=== PATIENT | male | born 1965 | race African-American/Black ===

== ENCOUNTER 2016-06-03 13:45 | Inpatient (IN) | payer OTHER ==
[2016-06-03 17:03] VITALS: BMI 26.6
--- NOTE | 2016-06-03 17:39 | HP ---
COWS - Scale Resting Pulse: 0= [place] 80 or Below Sweatin= Chills/Flushing Restless Observation: 3= Extraneous Movement Pupil Size: 0= Normal to Room Light Bone or Joint Aches: 2= Severe Diffuse Aches Runny Nose/ Eye Tearin= Runny Nose/Eyes GI Upset > 30mins: 3= Vomiting/Diarrhea Tremor Observation: 2= Slight Tremor Visible Yawning Observation: 0= None Anxiety or Irritability: 2=Irritable/Anxious Goose Flesh Skin: 0=Smooth Skin COWS Score: 15 CIWA Score - CIWA Score Nausea/Vomitin Muscle Tremors: 4-Moderate,w/Arms Extend Anxiety: 4-Mod. Anxious/Guarded Agitation: 4-Moderately Restless Paroxysmal Sweats: 1-Minimal Palms Moist Orientation: 1-Uncertain about Date Tacttile Disturbances: 0-None Auditory Disturbances: 0-None Visual Disturbances: 0-None Headache: 0-None Present CIWA-Ar Total Score: 16 Admission ROS BHS - HPI Chief Complaint: withdrawal sx Allergies/Adverse Reactions: Allergies Allergy/AdvReac Type Severity Reaction Status Date / Time No Known Allergies Allergy Verified 06/03/16 17:13 History of Present Illness: 50 years old male with long history of alcohol heroin nicotine dependence has hypertension and glaucoma last medication "a month" ago, has depression no treatment, longest sobriety 5 years is admitted to detox Exam Limitations: No Limitations - Ebola screening Have you traveled outside of the country in the last 21 days: No Have you had contact with anyone from an Ebola affected area: No Have you been sick,other than usual withdrawal symptoms: No Do you have a fever: No - Review of Systems Constitutional: Chills, Changes in sleep EENT: reports: Other (glaucoma x 6 months last dose of eye drop "a month" ago needed eye glasses) Respiratory: reports: No Symptoms reported Cardiac: reports: No Symptoms Reported GI: reports: Diarrhea, Nausea, Poor Appetite, Poor Fluid Intake, Vomiting, Indigestion, Abdominal cramping : reports: No Symptoms Reported Musculoskeletal: reports: Back Pain, Joint Pain, Muscle Pain, Neck Pain Integumentary: reports: No Symptoms Reported Neuro: reports: Tremors Endocrine: reports: No Symptoms Reported Hematology: reports: No Symptoms Reported Psychiatric: reports: Judgement Intact, Depressed Other Systems: Reviewed and Negative Patient History - Patient Medical History Hx Anemia: No Hx Asthma: No Hx Chronic Obstructive Pulmonary Disease (COPD): No Hx Cancer: No Hx Cardiac Disorders: No Hx Congestive Heart Failure: No Hx Hypertension: Yes Hx Hypercholesterolemia: No Hx Pacemaker: No HX Cerebrovascular Accident: No Hx Seizures: No Hx Dementia: No Hx Diabetes: No Hx Gastrointestinal Disorders: No Hx Liver Disease: No Hx Genitourinary Disorders: No Hx Sexually Transmitted Disorders: No Hx Renal Disease (ESRD): No Hx Thyroid Disease: No Hx Human Immunodeficiency Virus (HIV): No Hx Hepatitis C: No Hx Depression: Yes Hx Suicide Attempt: No Hx Bipolar Disorder: No Hx Schizophrenia: No - Patient Surgical History Past Surgical History: No Hx Neurologic Surgery: No Hx Cataract Extraction: No Hx Cardiac Surgery: No Hx Lung Surgery: No Hx Breast Surgery: No Hx Breast Biopsy: No Hx Abdominal Surgery: No Hx Appendectomy: No Hx Cholecystectomy: No Hx Genitourinary Surgery: No Hx Orthopedic Surgery: No - PPD History Previous Implant?: Yes Documented Results: Negative w/o proof Implanted On Prior R Admission?: No PPD to be Administered?: Yes - Smoking Cessation Smoking history: Current every day smoker Have you smoked in the past 12 months: Yes Aproximately how many cigarettes per day: 10 Hx Chewing Tobacco Use: No Initiated information on smoking cessation: Yes 'Breaking Loose' booklet given: 06/03/16 - Substance & Tx. History Hx Alcohol Use: Yes Hx Substance Use: Yes Substance Use Type: Alcohol, Opiates Hx Substance Use Treatment: Yes - Substances Abused Heroin Route: Inhalation Frequency: Daily Amount used: 3-4 BAGS Age of first use: 50 Date of Last Use: 06/02/16 Alcohol Route: Oral Frequency: Daily Amount used: 1-2 6PKS BEER Age of first use: 21 Date of Last Use: 06/02/16 Family Disease History - Family Disease History Family Disease History: Diabetes: Brother Admission Physical Exam BHS - Vital Signs Vital Signs: Vital Signs - 24 hr 06/03/16 17:01 Temperature 98.7 F Pulse Rate 72 Respiratory 18 Rate Blood Pressure 163/103 - Physical General Appearance: Yes: Appropriately Dressed, Mild Distress, Tremorous, Irritable, Sweating, Anxious HEENTM: Yes: Hearing grossly Normal, Normal ENT Inspection, Normocephalic, Normal Voice Respiratory: Yes: Chest Non-Tender, Lungs Clear, Normal Breath Sounds, No Respiratory Distress, No Accessory Muscle Use Neck: Yes: Supple, Trachea in good position Breast: Yes: Breasts Symetrical Cardiology: Yes: Regular Rhythm, Regular Rate, S1, S2 Abdominal: Yes: Non Tender, Soft Genitourinary: Yes: Within Normal Limits Back: Yes: Normal Inspection Musculoskeletal: Yes: full range of Motion, Gait Steady, Back pain, Muscle Pain Extremities: Yes: Normal Inspection, Normal Range of Motion, Non-Tender, Tremors Neurological: Yes: Alert, Motor Strength 5/5, Normal Response, Depressed Affect Integumentary: Yes: Warm, Moist Lymphatic: Yes: Within Normal Limits - Diagnostic (1) Alcohol dependence with uncomplicated withdrawal Current Visit: Yes Status: Acute (2) Opioid dependence with withdrawal Current Visit: Yes Status: Acute (3) Hypertension Current Visit: Yes Status: Acute Qualifiers: Hypertension type: essential hypertension Qualified Code(s): I10 - Essential (primary) hypertension Comment: lisinopril (4) Nicotine dependence Current Visit: Yes Status: Acute Qualifiers: Nicotine product type: cigarettes Substance use status: uncomplicated Qualified Code(s): F17.210 - Nicotine dependence, cigarettes, uncomplicated (5) Depression (emotion) Current Visit: Yes Status: Suspected Qualifiers: Depression Type: dysthymia Qualified Code(s): F34.1 - Dysthymic disorder (6) Glaucoma Current Visit: Yes Status: Chronic Qualifiers: Glaucoma type: unspecified type Laterality: unspecified laterality Qualified Code(s): H40.9 - Unspecified glaucoma Comment: patient states that he has glaucoma x 6 months last eye drop a month ago unable to remember the name of the medication wait for home med list from pharmacy Cleared for Admission [facility] - Detox or Rehab [facility] Level of Care: Medically Managed Detox Regimen/Protocol: Methadone/Librium [facility] Breath Alcohol Content Breath Alcohol Content: 0 Urine Drug Screen - Results Drug Screen Negative: No Urine Drug Screen Results: OPI-Opiates
[2016-06-03] MEDS ORDERED: P-EPHED 60MG/TRIPROLIDI 2.5MG TABLET PO PRN (17:43)
[2016-06-03] MEDS ORDERED: MENTHOL/PHENOL 1 EACH UD MM PRN (17:43)
[2016-06-03] MEDS ORDERED: NICOTINE POLACRILEX 2 MG GUM BUC PRN (17:43)
[2016-06-03] MEDS ORDERED: MAG HYDROX/AL HYDROX/SIMETH 30 ML UNIT-DOSE CUP PO PRN (17:43)
[2016-06-03] MEDS ORDERED: chlordiazePOXIDE HCL 25 MG CAPSULE PO PRN (17:43)
[2016-06-03] MEDS ORDERED: LOPERAMIDE HCL 2 MG CAPSULE PO PRN (17:43)
[2016-06-03] MEDS ORDERED: ACETAMINOPHEN 325 MG TABLET (FP) PO PRN (17:43)
[2016-06-03] MEDS ORDERED: MAGNESIUM HYDROX 2400MG/30ML ORAL SUSPENSION 30 ML CUP PO PRN (17:43)
[2016-06-03] MEDS ORDERED: MAGNESIUM CITRATE 300 ML BOTTLE PO PRN (17:43)
[2016-06-03] MEDS ORDERED: guaiFENesin/D-METHORPHAN HB 10 ML UNIT-DOSE CUPS PO PRN (17:43)
[2016-06-03] MEDS ORDERED: IBUPROFEN 400 MG TABLET (FP) PO PRN (17:43)
[2016-06-03] MEDS ORDERED: cloNIDine HCL 0.1 MG TABLET PO PRN (17:46)
[2016-06-03] MEDS ORDERED: ONDANSETRON *ODT* 4 MG TABLET SL PRN (17:49)
[2016-06-03] MEDS ORDERED: METHADONE HCL 10 MG TABLET (FOR DETOX USE ONLY) PO ONE ×2 (18:45→23:00)
[2016-06-03] MEDS: LISINOPRIL 10 MG TABLET (FP) PO SCH (19:08)
[2016-06-03 20:53] LABS: URINE APPEARANCE CLEAR; URINE BILIRUBIN NEGATIVE (NEGATIVE); URINE BLOOD NEGATIVE (NEGATIVE); URINE COLOR LT. YELLOW; URINE GLUCOSE (UA) NEGATIVE (NEGATIVE); URINE KETONE NEGATIVE (NEGATIVE); URINE LEUK ESTERASE NEGATIVE (NEGATIVE); URINE NITRITE NEGATIVE (NEGATIVE); URINE PROTEIN NEGATIVE (NEGATIVE); URINE UROBILINOGEN 0.2 E.U/dl E.U./dl (0.2-1.0)
[2016-06-03] MEDS ORDERED: diphenhydrAMINE HCL 50 MG CAPSULE PO PRN (22:00)
[2016-06-03] MEDS: chlordiazePOXIDE HCL 25 MG CAPSULE PO SCH (22:24)
[2016-06-03] MEDS: THIAMINE HCL 100 MG TABLET (FP) PO SCH (22:24)
[2016-06-04] MEDS: chlordiazePOXIDE HCL 25 MG CAPSULE PO SCH ×4 (05:55→22:33)
[2016-06-04 10:00] LABS: MCH 29.2 pg (25.7-33.7); MEAN CELL VOLUME 88.5 fl (80-96); MEAN PLT VOLUME 10.5 fl (7.5-11.1); PLATELET COUNT 223 K/MM3 (134-434); RDW 14.6 % (11.9-15.9); WHITE BLOOD COUNT 4.9 K/mm3 (4.0-10.0)
[2016-06-04] MEDS ORDERED: METHADONE HCL 10 MG TABLET (FOR DETOX USE ONLY) PO SCH (10:00)
[2016-06-04] MEDS: PRENATAL VITAMINS W/ FOLIC ACID TABLET (FP) PO SCH (10:11)
[2016-06-04] MEDS: NICOTINE 14 MG/24 HOURS TOPICAL PATCH TD SCH (10:12)
[2016-06-04] MEDS: LISINOPRIL 10 MG TABLET (FP) PO SCH (10:12)
[2016-06-04 10:45] LABS: ALBUMIN 3.8 g/dl (3.4-5.0); ALK PHOS 75 U/L (45-117); ANION GAP 9 (8-16); BILIRUBIN,TOTAL 0.6 mg/dL (0.2-1.0); CALCIUM 9.1 mg/dL (8.5-10.1); CO2 27 mmol/L (21-32); CREATININE 1.1 mg/dL (0.7-1.3); GLUCOSE,RANDOM 112 mg/dL (74-106); SGOT/AST 22 U/L (15-37); SGPT/ALT 14 U/L (12-78); TOT PROT 7.7 g/dl (6.4-8.2)
--- NOTE | 2016-06-04 11:23 | PN ---
[facility] CIWA - CIWA Score Nausea/Vomitin-No Nausea/No Vomiting Muscle Tremors: 4-Moderate,w/Arms Extend Anxiety: 4-Mod. Anxious/Guarded Agitation: 4-Moderately Restless Paroxysmal Sweats: 1-Minimal Palms Moist Orientation: 0-Oriented Tacttile Disturbances: 3-Moderate Itch/Numb/Burn Auditory Disturbances: 0-None Visual Disturbances: 0-None Headache: 0-None Present CIWA-Ar Total Score: 16 BHS COWS - Scale Resting Pulse: 0= [place] 80 or Below Sweatin= Chills/Flushing Restless Observation: 3= Extraneous Movement Pupil Size: 2= Moderately Dilated Bone or Joint Aches: 4=Acute Joint/Muscle Pain Runny Nose/ Eye Tearin= Nasal Congestion GI Upset > 30mins: 1= Stomach Cramp Tremor Observation of Outstretched Hands: 1= Tremor [place], Not Seen Yawning Observation: 1= 1-2x During Session Anxiety or Irritability: 1=Feels Anxious/Irritable Goose Flesh Skin: 0=Smooth Skin COWS Score: 15 [facility] Progress Note (SOAP) Subjective: ANXIETY,TREMORS, SWEATS. Objective: 06/04/16 11:22 Vital Signs Temperature 98.7 F 06/04/16 09:43 Pulse Rate 80 06/04/16 09:43 Respiratory Rate 18 06/04/16 09:43 Blood Pressure 148/94 06/04/16 09:43 O2 Sat by Pulse Oximetry (%) Laboratory Last Values WBC 4.9 K/mm3 (4.0-10.0) 06/04/16 06:00 RBC 4.52 M/mm3 (4.00-5.60) 06/04/16 06:00 Hgb 13.2 GM/dL (11.7-16.9) 06/04/16 06:00 Hct 40.0 % (35.4-49) 06/04/16 06:00 MCV 88.5 fl (80-96) 06/04/16 06:00 MCHC 33.0 g/dl (32.0-35.9) 06/04/16 06:00 RDW 14.6 % (11.9-15.9) 06/04/16 06:00 Plt Count 223 K/MM3 (134-434) 06/04/16 06:00 MPV 10.5 fl (7.5-11.1) 06/04/16 06:00 Sodium 139 mmol/L (136-145) 06/04/16 06:00 Potassium 3.7 mmol/L (3.5-5.1) 06/04/16 06:00 Chloride 103 mmol/L (98-107) 06/04/16 06:00 Carbon Dioxide 27 mmol/L (21-32) 06/04/16 06:00 Anion Gap 9 (8-16) 06/04/16 06:00 BUN 9 mg/dL (7-18) 06/04/16 06:00 Creatinine 1.1 mg/dL (0.7-1.3) 06/04/16 06:00 Creat Clearance w eGFR > 60 (>60) 06/04/16 06:00 Random Glucose 112 mg/dL (74-106) H 06/04/16 06:00 Calcium 9.1 mg/dL (8.5-10.1) 06/04/16 06:00 Total Bilirubin 0.6 mg/dL (0.2-1.0) 06/04/16 06:00 AST 22 U/L (15-37) 06/04/16 06:00 ALT 14 U/L (12-78) 06/04/16 06:00 Alkaline Phosphatase 75 U/L (45-117) 06/04/16 06:00 Total Protein 7.7 g/dl (6.4-8.2) 06/04/16 06:00 Albumin 3.8 g/dl (3.4-5.0) 06/04/16 06:00 Urine Color Lt. yellow 06/03/16 19:30 Urine Appearance Clear 06/03/16 19:30 Urine pH 7.0 (5.0-8.0) 06/03/16 19:30 Ur Specific [place] 1.015 (1.001-1.035) 06/03/16 19:30 Urine Protein Negative (NEGATIVE) 06/03/16 19:30 Urine Glucose (UA) Negative (NEGATIVE) 06/03/16 19:30 Urine Ketones Negative (NEGATIVE) 06/03/16 19:30 Urine Blood Negative (NEGATIVE) 06/03/16 19:30 Urine Nitrite Negative (NEGATIVE) 06/03/16 19:30 Urine Bilirubin Negative (NEGATIVE) 06/03/16 19:30 Urine Urobilinogen 0.2 e.u/dl E.U./dl (0.2-1.0) 06/03/16 19:30 Ur Leukocyte Esterase Negative (NEGATIVE) 06/03/16 19:30 Assessment: 06/04/16 11:23 WITHDRAWAL SX Plan: CONTINUE DETOX
--- NOTE | 2016-06-04 14:53 | CONSULT ---
[facility] Psychiatric Consult - Data Date of interview: 06/04/16 Admission source: [facility] Identifying data: Readmission to [facility] for this 50 y/o AA male seeking detox treatment on for alcohol and heroin dependence.Patient is single, a father of one,domiciled,unemployed and supported on Welfare. Substance Abuse History: - Smoking Cessation. Smoking history: Current every day smoker. Have you smoked in the past 12 months: Yes. Aproximately how many cigarettes per day: 10. Hx Chewing Tobacco Use: No. Initiated information on smoking cessation: Yes. 'Breaking Loose' booklet given: 06/03/16. - Substance & Tx. History. Hx Alcohol Use: Yes. Hx Substance Use: Yes. Substance Use Type : Alcohol, Opiates. Hx Substance Use Treatment: Yes. - Substances Abused. Heroin. Route: Inhalation. Frequency: Daily. Amount used: 3-4 BAGS. Age of first use: 50. Date of Last Use: 06/02/16. Alcohol. Route: Oral. Frequency: Daily. Amount used: 1-2 6PKS BEER. Age of first use: 21. Date of Last Use: 06/02/16. Confirmed by patient. Medical History: Significant for a history of glaucoma and hypertension. Psychiatric History: Patient denies. Physical/Sexual Abuse/Trauma History: Patient denies. Additional Comment: Urine Drug Screen Results: OPI-Opiates.Noted. Mental Status Exam - Mental Status Exam Alert and Oriented to: Time, Place, Person Cognitive Function: Good Patient Appearance: Well Groomed Mood: Nervous, Withdrawn Affect: Mood Congruent Patient Behavior: Fatigued, Talkative, Appropriate, Cooperative Speech Pattern: Clear, Appropriate Voice Loudness: Normal Thought Process: Goal Oriented Thought Disorder: Not Present Hallucinations: Denies Suicidal Ideation: Denies Homicidal Ideation: Denies Insight/Judgement: Poor Sleep: Fair Appetite: Good Muscle strength/Tone: Normal Gait/Station: Normal Psychiatric Findings - Problem List ([place] 1, 2,3) (1) Alcohol dependence with uncomplicated withdrawal Current Visit: Yes Status: Acute (2) Hypertension Current Visit: Yes Status: Acute Qualifiers: Hypertension type: essential hypertension Qualified Code(s): I10 - Essential (primary) hypertension Comment: lisinopril (3) Nicotine dependence Current Visit: Yes Status: Acute Qualifiers: Nicotine product type: cigarettes Substance use status: uncomplicated Qualified Code(s): F17.210 - Nicotine dependence, cigarettes, uncomplicated (4) Opioid dependence with withdrawal Current Visit: Yes Status: Acute (5) Glaucoma Current Visit: Yes Status: Chronic Qualifiers: Glaucoma type: unspecified type Laterality: unspecified laterality Qualified Code(s): H40.9 - Unspecified glaucoma Comment: patient states that he has glaucoma x 6 months last eye drop a month ago unable to remember the name of the medication wait for home med list from pharmacy (6) Insomnia Current Visit: Yes Status: Acute Comment: Moderate. - Initial Treatment Plan Initial Treatment Plan: Psychoeducation.Detoxification.Moderate insomnia is addressed with benadryl 50 mg po hs prn.Side effects/benefits discussed with patient.He agrees with plan.Observation.
[2016-06-04] MEDS: THIAMINE HCL 100 MG TABLET (FP) PO SCH (22:33)
--- NOTE | 2016-06-04 23:45 | PN ---
[facility]HS Progress Note Note: received nurse call bp 153/102 librium 25 mg + clonidine 0.1 mg repeat bp in one hour around 12 am begin metoprolol 50 mg bid discontinue clonidine continue detox
[2016-06-05] MEDS: chlordiazePOXIDE HCL 25 MG CAPSULE PO SCH ×3 (05:48→18:02)
--- NOTE | 2016-06-05 09:17 | PN ---
[facility] CIWA - CIWA Score Nausea/Vomitin-No Nausea/No Vomiting Muscle Tremors: 4-Moderate,w/Arms Extend Anxiety: 4-Mod. Anxious/Guarded Agitation: 4-Moderately Restless Paroxysmal Sweats: 1-Minimal Palms Moist Orientation: 0-Oriented Tacttile Disturbances: 3-Moderate Itch/Numb/Burn Auditory Disturbances: 0-None Visual Disturbances: 0-None Headache: 0-None Present CIWA-Ar Total Score: 16 BHS COWS - Scale Resting Pulse: 0= [place] 80 or Below Sweatin= Chills/Flushing Restless Observation: 3= Extraneous Movement Pupil Size: 2= Moderately Dilated Bone or Joint Aches: 4=Acute Joint/Muscle Pain Runny Nose/ Eye Tearin= Nasal Congestion GI Upset > 30mins: 0= None Tremor Observation of Outstretched Hands: 2= Slight Tremor Visible Yawning Observation: 2= >3x During Session Anxiety or Irritability: 2=Irritable/Anxious Goose Flesh Skin: 0=Smooth Skin COWS Score: 17 [facility] Progress Note (SOAP) Subjective: ANXIETY,SWEATS,FATIGUE. Objective: 06/05/16 09:16 Vital Signs Temperature 96.9 F L 06/05/16 06:28 Pulse Rate 76 06/05/16 06:28 Respiratory Rate 18 06/05/16 06:28 Blood Pressure 140/96 06/05/16 06:28 O2 Sat by Pulse Oximetry (%) Laboratory Last Values WBC 4.9 K/mm3 (4.0-10.0) 06/04/16 06:00 RBC 4.52 M/mm3 (4.00-5.60) 06/04/16 06:00 Hgb 13.2 GM/dL (11.7-16.9) 06/04/16 06:00 Hct 40.0 % (35.4-49) 06/04/16 06:00 MCV 88.5 fl (80-96) 06/04/16 06:00 MCHC 33.0 g/dl (32.0-35.9) 06/04/16 06:00 RDW 14.6 % (11.9-15.9) 06/04/16 06:00 Plt Count 223 K/MM3 (134-434) 06/04/16 06:00 MPV 10.5 fl (7.5-11.1) 06/04/16 06:00 Sodium 139 mmol/L (136-145) 06/04/16 06:00 Potassium 3.7 mmol/L (3.5-5.1) 06/04/16 06:00 Chloride 103 mmol/L (98-107) 06/04/16 06:00 Carbon Dioxide 27 mmol/L (21-32) 06/04/16 06:00 Anion Gap 9 (8-16) 06/04/16 06:00 BUN 9 mg/dL (7-18) 06/04/16 06:00 Creatinine 1.1 mg/dL (0.7-1.3) 06/04/16 06:00 Creat Clearance w eGFR > 60 (>60) 06/04/16 06:00 Random Glucose 112 mg/dL (74-106) H 06/04/16 06:00 Calcium 9.1 mg/dL (8.5-10.1) 06/04/16 06:00 Total Bilirubin 0.6 mg/dL (0.2-1.0) 06/04/16 06:00 AST 22 U/L (15-37) 06/04/16 06:00 ALT 14 U/L (12-78) 06/04/16 06:00 Alkaline Phosphatase 75 U/L (45-117) 06/04/16 06:00 Total Protein 7.7 g/dl (6.4-8.2) 06/04/16 06:00 Albumin 3.8 g/dl (3.4-5.0) 06/04/16 06:00 Urine Color Lt. yellow 06/03/16 19:30 Urine Appearance Clear 06/03/16 19:30 Urine pH 7.0 (5.0-8.0) 06/03/16 19:30 Ur Specific [place] 1.015 (1.001-1.035) 06/03/16 19:30 Urine Protein Negative (NEGATIVE) 06/03/16 19:30 Urine Glucose (UA) Negative (NEGATIVE) 06/03/16 19:30 Urine Ketones Negative (NEGATIVE) 06/03/16 19:30 Urine Blood Negative (NEGATIVE) 06/03/16 19:30 Urine Nitrite Negative (NEGATIVE) 06/03/16 19:30 Urine Bilirubin Negative (NEGATIVE) 06/03/16 19:30 Urine Urobilinogen 0.2 e.u/dl E.U./dl (0.2-1.0) 06/03/16 19:30 Ur Leukocyte Esterase Negative (NEGATIVE) 06/03/16 19:30 RPR Titer Nonreactive (NONREACTIVE) 06/04/16 06:00 Hepatitis C Antibody 0.2 s/co ratio (0.0-0.9) 06/03/16 06:00 Assessment: 06/05/16 09:16 WITHDRAWAL SX Plan: CONTINUE DETOX
[2016-06-05] MEDS: LISINOPRIL 10 MG TABLET (FP) PO SCH (10:17)
[2016-06-05] MEDS: METHADONE HCL 5 MG TABLET (FOR DETOX USE ONLY) PO SCH (10:17)
[2016-06-05] MEDS: METOPROLOL TARTRATE 50 MG TABLET (FP) PO SCH ×2 (10:17→23:03)
[2016-06-05] MEDS: NICOTINE 14 MG/24 HOURS TOPICAL PATCH TD SCH (10:17)
[2016-06-05] MEDS: PRENATAL VITAMINS W/ FOLIC ACID TABLET (FP) PO SCH (10:17)
--- NOTE | 2016-06-05 10:20 | EKG ---
Test Reason : Blood Pressure : / mmHG Vent. Rate : 075 BPM Atrial Rate : 075 BPM P-R Int : 182 ms QRS Dur : 084 ms QT Int : 390 ms P-R-T Axes : 065 042 -11 degrees QTc Int : 435 ms NORMAL SINUS RHYTHM ST ELEVATION, CONSIDER EARLY REPOLARIZATION, PERICARDITIS, OR INJURY NONSPECIFIC ST ABNORMALITY ABNORMAL ECG NO PREVIOUS ECGS AVAILABLE Confirmed by INNA MARI MD ([id number]) on 06/05/2016 10:19:50 AM Referred By: Percy Sosa Confirmed By:INNA MARI MD
--- NOTE | 2016-06-05 10:27 | EKG ---
Test Reason : Blood Pressure : / mmHG Vent. Rate : 065 BPM Atrial Rate : 065 BPM P-R Int : 176 ms QRS Dur : 094 ms QT Int : 406 ms P-R-T Axes : 070 016 -01 degrees QTc Int : 422 ms NORMAL SINUS RHYTHM VOLTAGE CRITERIA FOR LEFT VENTRICULAR HYPERTROPHY ST ELEVATION, CONSIDER EARLY REPOLARIZATION, PERICARDITIS, OR INJURY ABNORMAL ECG NO PREVIOUS ECGS AVAILABLE Confirmed by KAMALJIT WALDEN, INNA ([id number]) on 06/05/2016 10:27:19 AM Referred By: Percy Sosa Confirmed By:INNA MARI MD
[2016-06-05] MEDS: chlordiazePOXIDE 5 MG CAPSULE PO SCH (23:03)
[2016-06-05] MEDS: THIAMINE HCL 100 MG TABLET (FP) PO SCH (23:03)
[2016-06-06] MEDS: chlordiazePOXIDE 5 MG CAPSULE PO SCH ×2 (06:15→10:19)
[2016-06-06 06:40] VITALS: BP 144/87; PULSE 63; TEMP 97.7
--- NOTE | 2016-06-06 10:13 | DS ---
[facility] Detox Discharge Summary Admission Date: 06/03/16 Discharge Date: 06/06/16 - History Present History: Alcohol Dependence, Opioid Dependence Additional Comments: PT DECLINED TO COMPLETE DETOX. STATES HE IS GOING TO HIS APPOINTMENT WITH [facility] ON ON [address] AND WANTED TO STOP USING HEROIN. WANTS TO GO OUT TO TAKE HIS PAIN PILL. Pertinent Past History: HTN - Physical Exam Results Vital Signs: Vital Signs Temperature 97.7 F 06/06/16 06:39 Pulse Rate 63 06/06/16 06:39 Respiratory Rate 18 06/06/16 06:39 Blood Pressure 144/87 06/06/16 06:39 O2 Sat by Pulse Oximetry (%) - Medication Discharge Medications: Ambulatory Orders Lisinopril 10 mg PO DAILY 06/03/16 - Diagnosis (1) Alcohol dependence with uncomplicated withdrawal Current Visit: Yes Status: Acute (2) Hypertension Current Visit: Yes Status: Chronic Qualifiers: Hypertension type: essential hypertension Qualified Code(s): I10 - Essential (primary) hypertension (3) Insomnia Current Visit: Yes Status: Chronic (4) Nicotine dependence Current Visit: Yes Status: Chronic Qualifiers: Nicotine product type: cigarettes Substance use status: uncomplicated Qualified Code(s): F17.210 - Nicotine dependence, cigarettes, uncomplicated (5) Opioid dependence with withdrawal Current Visit: Yes Status: Acute (6) Glaucoma Current Visit: Yes Status: Chronic Qualifiers: Glaucoma type: unspecified type Laterality: unspecified laterality Qualified Code(s): H40.9 - Unspecified glaucoma (7) Depression (emotion) Current Visit: Yes Status: Suspected Qualifiers: Depression Type: dysthymia Qualified Code(s): F34.1 - Dysthymic disorder - AMA Did Patient Leave Against Medical Advice: Yes (AMA)
[2016-06-06] MEDS: METHADONE HCL 5 MG TABLET (FOR DETOX USE ONLY) PO SCH (10:19)
[2016-06-06] MEDS: PRENATAL VITAMINS W/ FOLIC ACID TABLET (FP) PO SCH (10:19)
[2016-06-06] MEDS: NICOTINE 14 MG/24 HOURS TOPICAL PATCH TD SCH (10:19)
[2016-06-06] MEDS: METOPROLOL TARTRATE 50 MG TABLET (FP) PO SCH (10:19)
[2016-06-06] MEDS: LISINOPRIL 10 MG TABLET (FP) PO SCH (10:20)
[2016-06-06] MEDS ORDERED: chlordiazePOXIDE HCL 10 MG CAPSULE PO SCH (23:00)
[2016-06-07] MEDS ORDERED: METHADONE HCL 10 MG TABLET (FOR DETOX USE ONLY) PO SCH (10:00)
[2016-06-08] MEDS ORDERED: METHADONE HCL 5 MG TABLET (FOR DETOX USE ONLY) PO SCH (06:00)
== END 2016-06-06 09:30 | disposition left against medical advice (07) | DRG 770 ==
LOC: YASAS 13:45 → Y3N 18:27
PROVIDERS: ADMIT Internal Medicine; ATTEND Internal Medicine
PROC: HZ2ZZZZ Detoxification Services for Substance Abuse Treatment (ICD-10-PCS; principal; 2016-06-03)
DX: F11.23 Opioid dependence with withdrawal (principal); F10.230 Alcohol dependence with withdrawal, uncomplicated; F17.210 Nicotine dependence, cigarettes, uncomplicated; F34.1 Dysthymic disorder; I10 Essential (primary) hypertension; G47.00 Insomnia, unspecified; H40.9 Unspecified glaucoma
CPT/HCPCS: 36415; 80053; 81003; 85027; 86593; 86803; 93005; 93010

== ENCOUNTER 2017-03-14 10:59 | Inpatient (IN) | payer OTHER ==
[2017-03-14 13:09] VITALS: BMI 27.2
--- NOTE | 2017-03-14 14:37 | HP ---
COWS - Scale Resting Pulse: 1= [place] 81-100 Sweatin=Flushed/Facial Moisture Restless Observation: 3= Extraneous Movement Pupil Size: 2= Moderately Dilated Bone or Joint Aches: 2= Severe Diffuse Aches Runny Nose/ Eye Tearin= Runny Nose/Eyes GI Upset > 30mins: 3= Vomiting/Diarrhea Tremor Observation: 2= Slight Tremor Visible Yawning Observation: 2= >3x During Session Anxiety or Irritability: 2=Irritable/Anxious Goose Flesh Skin: 0=Smooth Skin COWS Score: 21 CIWA Score - CIWA Score Nausea/Vomitin Muscle Tremors: 3 Anxiety: 3 Agitation: 3 Paroxysmal Sweats: 2 Orientation: 0-Oriented Tacttile Disturbances: 2-Mild Itch/Numbness/Burn Auditory Disturbances: 2-Mild Harshness/Frighten Visual Disturbances: 2-Mild Sensitivity Headache: 2-Mild CIWA-Ar Total Score: 22 Admission ROS BHS - HPI Chief Complaint: I NEED HELP TO STOP USING HEROIN AND ALCOHOL Allergies/Adverse Reactions: Allergies Allergy/AdvReac Type Severity Reaction Status Date / Time No Known Allergies Allergy Verified 03/14/17 14:20 History of Present Illness: THIS 51 YEARS OLD MALE WITH HEROIN AND ALCOHOL DEPENDENCE,SEEKING DETOX,LAST TREATMENT 01/01/17 TO 01/06/17 HYPERTENSION ON MED WEIGHT LOSS DEPRESSION NO SIGNIFICANT PERIOD OF SOBRIETY Exam Limitations: No Limitations - Ebola screening Have you traveled outside of the country in the last 21 days: No Have you had contact with anyone from an Ebola affected area: No Have you been sick,other than usual withdrawal symptoms: No Do you have a fever: No - Review of Systems Constitutional: Chills, Loss of Appetite, Malaise, Night Sweats, Changes in sleep, Weakness, Unintentional Wgt. Loss EENT: reports: Tearing, Nose Congestion, Other (GLAUCOMA) Respiratory: reports: No Symptoms reported Cardiac: reports: Palpitations GI: reports: Diarrhea, Nausea, Vomiting, Abdominal cramping : reports: No Symptoms Reported Musculoskeletal: reports: Back Pain, Joint Pain, Muscle Pain, Joint Stiffness Integumentary: reports: Dryness Neuro: reports: Headache, Tremors Endocrine: reports: No Symptoms Reported Hematology: reports: No Symptoms Reported, Other (HIV SINCE 2002) Psychiatric: reports: No Sypmtoms Reported, Judgement Intact, Mood/Affect Appropiate, Orientated x3, Depressed Patient History - Patient Medical History Hx Anemia: No Hx Asthma: No Hx Chronic Obstructive Pulmonary Disease (COPD): No Hx Cancer: No Hx Cardiac Disorders: No Hx Congestive Heart Failure: No Hx Hypertension: Yes (non compliant with meds.) Hx Hypercholesterolemia: No Hx Pacemaker: No HX Cerebrovascular Accident: No Hx Seizures: No Hx Dementia: No Hx Diabetes: No Hx Gastrointestinal Disorders: No Hx Liver Disease: No Hx Genitourinary Disorders: No Hx Sexually Transmitted Disorders: Yes (Tx for gonnorhea in the past.) Hx Renal Disease (ESRD): No Hx Thyroid Disease: No Hx Human Immunodeficiency Virus (HIV): Yes (SINCE 2002 ON MED) Hx Hepatitis C: No Hx Depression: Yes Hx Suicide Attempt: No Hx Bipolar Disorder: No Hx Schizophrenia: No Other Medical History: NO SUICIDAL,NO HOMICIDAL - Patient Surgical History Past Surgical History: No Hx Neurologic Surgery: No Hx Cataract Extraction: No Hx Cardiac Surgery: No Hx Lung Surgery: No Hx Breast Surgery: No Hx Breast Biopsy: No Hx Abdominal Surgery: No Hx Appendectomy: No Hx Cholecystectomy: No Hx Genitourinary Surgery: No Hx Orthopedic Surgery: No - PPD History Previous Implant?: Yes Documented Results: Negative w/proof Implanted On Prior [facility] Admission?: Yes Date: 06/05/16 Results: 0 mm PPD to be Administered?: No - Smoking Cessation Smoking history: Current every day smoker Have you smoked in the past 12 months: Yes Aproximately how many cigarettes per day: 10 Hx Chewing Tobacco Use: No Initiated information on smoking cessation: Yes 'Breaking Loose' booklet given: 03/14/17 - Substance & Tx. History Hx Alcohol Use: Yes Hx Substance Use: Yes Substance Use Type: Alcohol, Heroin Hx Substance Use Treatment: Yes ([facility] 01/01 TO 01/06) - Substances Abused Heroin Route: Inhalation Frequency: Daily Amount used: 5 bags Age of first use: 49 Date of Last Use: 03/14/17 Alcohol Route: Oral Frequency: Daily Amount used: 5 beers Age of first use: 16 Date of Last Use: 03/14/17 Family Disease History - Family Disease History Family Disease History: Diabetes: Brother, Other: Father (ALCOHOL) Admission Physical Exam BHS - Vital Signs Vital Signs: Vital Signs - 24 hr 03/14/17 13:07 Temperature 99.1 F Pulse Rate 83 Respiratory 20 Rate Blood Pressure 153/101 - Physical General Appearance: Yes: Moderate Distress, Tremorous, Irritable, Sweating, Anxious HEENTM: Yes: Normal ENT Inspection, ANDREA, Pharynx Normal Respiratory: Yes: Within Normal Limits, Lungs Clear, Normal Breath Sounds Neck: Yes: Within Normal Limits, Supple, Trachea in good position Breast: Yes: Within Normal Limits Cardiology: Yes: Within Normal Limits, Regular Rhythm, Regular Rate, S1, S2 Abdominal: Yes: Within Normal Limits, Normal Bowel Sounds, Non Tender, Soft Genitourinary: Yes: Within Normal Limits Back: Yes: Muscle Spasm Musculoskeletal: Yes: Back pain, Joint Stiffness, Muscle Pain Extremities: Yes: Normal Range of Motion, Tremors Neurological: Yes: medical technologist prn II-XII NML intact, Fully Oriented, Alert, Motor Strength 5/5 Integumentary: Yes: Dry Lymphatic: Yes: Within Normal Limits - Diagnostic (1) Opioid dependence with withdrawal Current Visit: Yes Status: Acute (2) Alcohol dependence with uncomplicated withdrawal Current Visit: Yes Status: Acute (3) Hypertension Current Visit: Yes Status: Chronic Qualifiers: Hypertension type: essential hypertension Qualified Code(s): I10 - Essential (primary) hypertension; I10 - Essential (primary) hypertension; I10 - Essential (primary) hypertension Comment: lisinopril (4) Insomnia Current Visit: No Status: Chronic Comment: Moderate. (5) Nicotine dependence Current Visit: Yes Status: Chronic Qualifiers: Nicotine product type: cigarettes Substance use status: uncomplicated Qualified Code(s): F17.210 - Nicotine dependence, cigarettes, uncomplicated; F17.210 - Nicotine dependence, cigarettes, uncomplicated (6) Depression (emotion) Current Visit: Yes Status: Chronic Qualifiers: Depression Type: dysthymia Qualified Code(s): F34.1 - Dysthymic disorder; F34.1 - Dysthymic disorder; F34.1 - Dysthymic disorder (7) HIV (human immunodeficiency virus infection) Current Visit: Yes Status: Chronic (8) Glaucoma Current Visit: Yes Status: Chronic Qualifiers: Glaucoma type: unspecified type Laterality: unspecified laterality Comment: patient states that he has glaucoma x 6 months last eye drop a month ago unable to remember the name of the medication wait for home med list from pharmacy Cleared for Admission S - Detox or Rehab S Level of Care: Medically Managed Detox Regimen/Protocol: Methadone/Librium BHS Breath Alcohol Content Breath Alcohol Content: 0 Urine Drug Screen - Results Drug Screen Negative: No Urine Drug Screen Results: OPI-Opiates
[2017-03-14] MEDS ORDERED: diphenhydrAMINE HCL 50 MG CAPSULE PO PRN (15:15)
[2017-03-14] MEDS ORDERED: P-EPHED 60MG/TRIPROLIDI 2.5MG TABLET PO PRN (15:15)
[2017-03-14] MEDS ORDERED: MAGNESIUM HYDROX 2400MG/30ML ORAL SUSPENSION 30 ML CUP PO PRN (15:15)
[2017-03-14] MEDS ORDERED: chlordiazePOXIDE HCL 25 MG CAPSULE PO PRN (15:15)
[2017-03-14] MEDS ORDERED: guaiFENesin/D-METHORPHAN HB 10 ML UNIT-DOSE CUPS PO PRN (15:15)
[2017-03-14] MEDS ORDERED: ACETAMINOPHEN 325 MG TABLET (FP) PO PRN (15:15)
[2017-03-14] MEDS ORDERED: LOPERAMIDE HCL 2 MG CAPSULE PO PRN (15:15)
[2017-03-14] MEDS ORDERED: MAG HYDROX/AL HYDROX/SIMETH 30 ML UNIT-DOSE CUP PO PRN (15:15)
[2017-03-14] MEDS ORDERED: MAGNESIUM CITRATE 300 ML BOTTLE PO PRN (15:15)
[2017-03-14] MEDS ORDERED: MENTHOL/PHENOL 1 EACH UD MM PRN (15:15)
[2017-03-14] MEDS ORDERED: hydrOXYzine PAMOATE 25 MG CAPSULE (FP) PO PRN (15:15)
[2017-03-14] MEDS ORDERED: IBUPROFEN 400 MG TABLET (FP) PO PRN (15:15)
[2017-03-14] MEDS ORDERED: NICOTINE POLACRILEX 2 MG GUM BC PRN (15:15)
[2017-03-14] MEDS ORDERED: METHADONE HCL 10 MG TABLET (FOR DETOX USE ONLY) PO ONE ×2 (16:30→23:00)
[2017-03-14] MEDS: METOPROLOL TARTRATE 50 MG TABLET (FP) PO SCH (18:38)
[2017-03-14] MEDS: chlordiazePOXIDE HCL 25 MG CAPSULE PO SCH ×2 (18:39→22:14)
[2017-03-14] MEDS: GENVOYA PO SCH (18:40)
[2017-03-14] MEDS: amLODIPine BESYLATE 10 MG TABLET (FP) PO SCH (18:41)
[2017-03-14] MEDS: NICOTINE 21 MG/24 HOURS TOPICAL PATCH TD SCH (18:42)
[2017-03-14 22:09] LABS: URINE APPEARANCE SLCLOUDY; URINE BILIRUBIN NEGATIVE (NEGATIVE); URINE BLOOD NEGATIVE (NEGATIVE); URINE COLOR DKYELLOW; URINE GLUCOSE (UA) NEGATIVE (NEGATIVE); URINE KETONE NEGATIVE (NEGATIVE); URINE NITRITE NEGATIVE (NEGATIVE); URINE PROTEIN NEGATIVE (NEGATIVE)
[2017-03-14] MEDS: THIAMINE HCL 100 MG TABLET (FP) PO SCH (22:10)
[2017-03-14] MEDS: LATANOPROST 0.005% OPHTH SOLN 2.5ML BOTTLE OU SCH (22:14)
[2017-03-15] MEDS: chlordiazePOXIDE HCL 25 MG CAPSULE PO SCH ×4 (06:09→22:03)
[2017-03-15 09:09] LABS: MCH 28.8 pg (25.7-33.7); MCHC 32.5 g/dl (32.0-35.9); MEAN CELL VOLUME 88.6 fl (80-96); MEAN PLT VOLUME 10.1 fl (7.5-11.1); PLATELET COUNT 203 K/MM3 (134-434); RDW 14.3 % (11.9-15.9); WHITE BLOOD COUNT 5.8 K/mm3 (4.0-10.0)
[2017-03-15] MEDS ORDERED: METHADONE HCL 10 MG TABLET (FOR DETOX USE ONLY) PO SCH (10:00)
--- NOTE | 2017-03-15 10:01 | PN ---
[facility] CIWA - CIWA Score Nausea/Vomitin-Mild Nausea/No Vomiting Muscle Tremors: 3 Anxiety: 3 Agitation: 3 Paroxysmal Sweats: 3 Orientation: 0-Oriented Tacttile Disturbances: 1-Very Mild Itch/Numbness Auditory Disturbances: 0-None Visual Disturbances: 0-None Headache: 0-None Present CIWA-Ar Total Score: 14 BHS COWS - Scale Resting Pulse: 0= [place] 80 or Below Sweatin=Flushed/Facial Moisture Restless Observation: 1= Difficult to Sit Still Pupil Size: 0= Normal to Room Light Bone or Joint Aches: 1= Mild Discomfort Runny Nose/ Eye Tearin= Nasal Congestion GI Upset > 30mins: 1= Stomach Cramp Tremor Observation of Outstretched Hands: 1= Tremor [place], Not Seen Yawning Observation: 0= None Anxiety or Irritability: 2=Irritable/Anxious Goose Flesh Skin: 0=Smooth Skin COWS Score: 9 S Progress Note (SOAP) Subjective: Anxiety,tremors,sweating,interrupted sleep,restless Objective: 03/15/17 10:00 Vital Signs - 8 hr 03/15/17 03/15/17 03/15/17 03:49 06:00 09:45 Temperature 97.9 F 98.8 F Pulse Rate 65 73 Respiratory 18 18 16 Rate Blood Pressure 137/85 132/82 Laboratory Tests 03/14/17 03/15/17 21:00 06:00 WBC 5.8 RBC 4.29 Hgb 12.4 Hct 38.0 MCV 88.6 MCH 28.8 MCHC 32.5 RDW 14.3 Plt Count 203 MPV 10.1 Urine Color Dkyellow Urine Appearance Slcloudy Urine pH 5.0 D Urine Protein Negative Urine Glucose (UA) Negative Urine Ketones Negative Urine Blood Negative Urine Nitrite Negative Urine Bilirubin Negative Urine Urobilinogen 2.0 labs noted Assessment: 03/15/17 10:00 Withdrawal sx. Plan: Continue detox
[2017-03-15 10:24] LABS: URINE LEUK ESTERASE Negative (NEGATIVE)
[2017-03-15 11:00] LABS: ALBUMIN 3.2 g/dl (3.4-5.0); ALK PHOS 74 U/L (45-117); ANION GAP 7 (8-16); BILIRUBIN,TOTAL 0.3 mg/dL (0.2-1.0); CALCIUM 8.7 mg/dL (8.5-10.1); CO2 29 mmol/L (21-32); CREATININE 0.8 mg/dL (0.7-1.3); GLUCOSE,RANDOM 95 mg/dL (74-106); SGOT/AST 19 U/L (15-37); SGPT/ALT 19 U/L (12-78)
[2017-03-15] MEDS: GENVOYA PO SCH (11:09)
[2017-03-15] MEDS: PRENATAL VITAMINS W/ FOLIC ACID TABLET (FP) PO SCH (11:09)
[2017-03-15] MEDS: METOPROLOL TARTRATE 50 MG TABLET (FP) PO SCH (11:09)
[2017-03-15] MEDS: LISINOPRIL 20 MG TABLET (FP) PO SCH (11:09)
[2017-03-15] MEDS: amLODIPine BESYLATE 10 MG TABLET (FP) PO SCH (11:09)
[2017-03-15] MEDS: NICOTINE 21 MG/24 HOURS TOPICAL PATCH TD SCH (11:09)
--- NOTE | 2017-03-15 12:45 | CONSULT ---
[facility] Psychiatric Consult - Data Date of interview: 03/15/17 Admission source: [facility] Identifying data: Another admission to [facility] for this 51 y/o AA male seeking detox treatment on for alcohol and heroin dependence.Patient is single,a father of one,domiciled,unemployed and supported on welfare. Substance Abuse History: Discussed with the patient in this interview.Mr Patel confirmed a long standing history of alcohol + opioid dependence. Smoking history: Current every day smoker. Have you smoked in the past 12 months: Yes. Aproximately how many cigarettes per day: 10. Hx Chewing Tobacco Use: No. Initiated information on smoking cessation: Yes. 'Breaking Loose' booklet given : 03/14/17. - Substance & Tx. History. Hx Alcohol Use: Yes. Hx Substance Use : Yes. Substance Use Type: Alcohol, Heroin. Hx Substance Use Treatment: Yes ( [facility] 01/01 TO 01/06). - Substances Abused. Heroin. Route: Inhalation. Frequency: Daily. Amount used: 5 bags. Age of first use: 49. Date of Last Use : 03/14/17. Alcohol. Route: Oral. Frequency: Daily. Amount used: 5 beers. Age of first use: 16. Date of Last Use: 03/14/17 Medical History: HIV infection since 2002,hypertension,glaucoma and past treatment for gonorrhea. Psychiatric History: Patient reports a distant history of psychiatric hospitalization at the [facility] in [place].Diagnosed with MDD.Mr Patel gets his OPD care at the [facility] clinic in [place].He does not recall the names of his medications.No reported history of suicide attempts. Physical/Sexual Abuse/Trauma History: Patient denies. Additional Comment: Urine Drug Screen Results: OPI-Opiates.Noted. Mental Status Exam - Mental Status Exam Alert and Oriented to: Time, Place, Person Cognitive Function: Good Patient Appearance: Well Groomed Mood: Hopeful, Euthymic Affect: Appropriate, Normal Range Patient Behavior: Appropriate, Cooperative Speech Pattern: Clear Voice Loudness: Normal Thought Process: Intact, Goal Oriented Thought Disorder: Not Present Hallucinations: Denies Suicidal Ideation: Denies Homicidal Ideation: Denies Insight/Judgement: Poor Sleep: Poorly, Difficulty falling asleep Appetite: Good Muscle strength/Tone: Normal Gait/Station: Normal Psychiatric Findings - Problem List ([place] 1, 2,3) (1) Alcohol dependence with uncomplicated withdrawal Current Visit: Yes Status: Acute (2) Opioid dependence with withdrawal Current Visit: Yes Status: Acute (3) Nicotine dependence Current Visit: Yes Status: Acute Qualifiers: Nicotine product type: cigarettes Substance use status: uncomplicated Qualified Code(s): F17.210 - Nicotine dependence, cigarettes, uncomplicated; F17.210 - Nicotine dependence, cigarettes, uncomplicated (4) Substance induced mood disorder Current Visit: Yes Status: Acute (5) Glaucoma Current Visit: Yes Status: Chronic Qualifiers: Glaucoma type: unspecified type Laterality: unspecified laterality Comment: patient states that he has glaucoma x 6 months last eye drop a month ago unable to remember the name of the medication wait for home med list from pharmacy (6) Hypertension Current Visit: Yes Status: Chronic Qualifiers: Hypertension type: essential hypertension Qualified Code(s): I10 - Essential (primary) hypertension; I10 - Essential (primary) hypertension; I10 - Essential (primary) hypertension Comment: lisinopril (7) HIV (human immunodeficiency virus infection) Current Visit: Yes Status: Chronic (8) Insomnia Current Visit: No Status: Chronic Comment: Moderate. - Initial Treatment Plan Initial Treatment Plan: Psychoeducation.Detoxification.Medications : seroquel 100 mg po hs + ambien 10 mg po hs prn (verified by pharmacy claims of 02/27/17 at [facility]).Side effects/benefits discussed with the patient.He agrees with this careplan.Observation.
--- NOTE | 2017-03-15 13:19 | EKG ---
Test Reason : Blood Pressure : / mmHG Vent. Rate : 079 BPM Atrial Rate : 079 BPM P-R Int : 170 ms QRS Dur : 086 ms QT Int : 376 ms P-R-T Axes : 070 025 015 degrees QTc Int : 431 ms NORMAL SINUS RHYTHM MINIMAL VOLTAGE CRITERIA FOR LVH, MAY BE NORMAL VARIANT BORDERLINE ECG WHEN COMPARED WITH ECG OF 04-JUN-2016 12:36, NO SIGNIFICANT CHANGE WAS FOUND Confirmed by WILLI WALDEN, AUDELIA ([id number]) on 03/15/2017 1:19:24 PM Referred By: ESDRAS GUEVARA Confirmed By:AUDELIA MÁRQUEZ MD
[2017-03-15] MEDS: LATANOPROST 0.005% OPHTH SOLN 2.5ML BOTTLE OU SCH (22:02)
[2017-03-15] MEDS: QUEtiapine FUMARATE 100 MG TABLET (FP) PO SCH (22:03)
[2017-03-15] MEDS: THIAMINE HCL 100 MG TABLET (FP) PO SCH (22:03)
[2017-03-15] MEDS: ZOLPIDEM TARTRATE 10 MG TABLET (PARK CARE ONLY) PO PRN (22:03)
[2017-03-16] MEDS: chlordiazePOXIDE HCL 25 MG CAPSULE PO SCH ×2 (06:31→10:25)
[2017-03-16] MEDS: METOPROLOL TARTRATE 50 MG TABLET (FP) PO SCH (10:23)
[2017-03-16] MEDS: GENVOYA PO SCH (10:23)
[2017-03-16] MEDS: METHADONE HCL 5 MG TABLET (FOR DETOX USE ONLY) PO SCH (10:23)
[2017-03-16] MEDS: LISINOPRIL 20 MG TABLET (FP) PO SCH (10:23)
[2017-03-16] MEDS: amLODIPine BESYLATE 10 MG TABLET (FP) PO SCH (10:23)
[2017-03-16] MEDS: PRENATAL VITAMINS W/ FOLIC ACID TABLET (FP) PO SCH (10:24)
[2017-03-16] MEDS: NICOTINE 21 MG/24 HOURS TOPICAL PATCH TD SCH (10:24)
--- NOTE | 2017-03-16 13:19 | DS ---
[facility] Detox Discharge Summary Admission Date: 03/14/17 Discharge Date: 03/16/17 - History Present History: Alcohol Dependence, Opioid Dependence Pertinent Past History: HIV HTN - Physical Exam Results Vital Signs: Vital Signs Temperature 99.0 F 03/16/17 13:06 Pulse Rate 77 03/16/17 13:06 Respiratory Rate 18 03/16/17 13:06 Blood Pressure 134/83 03/16/17 13:06 O2 Sat by Pulse Oximetry (%) Pertinent Admission Physical Exam Findings: Withdrawal symptoms Laboratory Tests 03/14/17 03/15/17 03/15/17 21:00 06:00 06:00 WBC 5.8 RBC 4.29 Hgb 12.4 Hct 38.0 MCV 88.6 MCH 28.8 MCHC 32.5 RDW 14.3 Plt Count 203 MPV 10.1 Sodium 139 Potassium 3.5 Chloride 103 Carbon Dioxide 29 Anion Gap 7 L BUN 12 D Creatinine 0.8 D Creat Clearance w eGFR > 60 Random Glucose 95 Calcium 8.7 Total Bilirubin 0.3 D AST 19 ALT 19 D Alkaline Phosphatase 74 Total Protein 7.0 Albumin 3.2 L Urine Color Dkyellow Urine Appearance Slcloudy Urine pH 5.0 D Ur Specific [place] 1.025 Urine Protein Negative Urine Glucose (UA) Negative Urine Ketones Negative Urine Blood Negative Urine Nitrite Negative Urine Bilirubin Negative Urine Urobilinogen 2.0 Ur Leukocyte Esterase Negative RPR Titer 03/15/17 06:00 WBC RBC Hgb Hct MCV MCH MCHC RDW Plt Count MPV Sodium Potassium Chloride Carbon Dioxide Anion Gap BUN Creatinine Creat Clearance w eGFR Random Glucose Calcium Total Bilirubin AST ALT Alkaline Phosphatase Total Protein Albumin Urine Color Urine Appearance Urine pH Ur Specific [place] Urine Protein Urine Glucose (UA) Urine Ketones Urine Blood Urine Nitrite Urine Bilirubin Urine Urobilinogen Ur Leukocyte Esterase RPR Titer Nonreactive Labs noted - Treatment Hospital Course: Detox Protocol Followed, Detoxed Safely, Responded well, Discharged Condition Good - Medication Discharge Medications: Ambulatory Orders Amlodipine Besylate [Norvasc -] 10 mg PO DAILY 03/14/17 Benazepril HCl 20 mg PO DAILY 03/14/17 Elviteg/Kristin/Emtric/Tenofo Ala [Genvoya Tablet] 1 each PO DAILY 03/14/17 Metoprolol Tartrate [Lopressor -] 50 mg PO DAILY 03/14/17 Quetiapine Fumarate [Seroquel] 100 mg PO HS #30 tablet 03/15/17 - Diagnosis (1) Alcohol dependence with uncomplicated withdrawal Current Visit: Yes Status: Acute (2) Nicotine dependence Current Visit: Yes Status: Chronic Qualifiers: Nicotine product type: cigarettes Substance use status: uncomplicated Qualified Code(s): F17.210 - Nicotine dependence, cigarettes, uncomplicated; F17.210 - Nicotine dependence, cigarettes, uncomplicated (3) Opioid dependence with withdrawal Current Visit: Yes Status: Acute (4) HIV (human immunodeficiency virus infection) Current Visit: Yes Status: Chronic (5) Hypertension Current Visit: Yes Status: Chronic Qualifiers: Hypertension type: essential hypertension Qualified Code(s): I10 - Essential (primary) hypertension; I10 - Essential (primary) hypertension; I10 - Essential (primary) hypertension (6) Depression (emotion) Current Visit: Yes Status: Chronic Qualifiers: Depression Type: dysthymia Qualified Code(s): F34.1 - Dysthymic disorder; F34.1 - Dysthymic disorder; F34.1 - Dysthymic disorder - AMA Did Patient Leave Against Medical Advice: No (Follow up with PCP in 1-2 weeks post discharge)
--- NOTE | 2017-03-16 13:24 | PN ---
S CIWA - CIWA Score Nausea/Vomitin Muscle Tremors: 4-Moderate,w/Arms Extend Anxiety: 4-Mod. Anxious/Guarded Agitation: 3 Paroxysmal Sweats: 3 Orientation: 0-Oriented Tacttile Disturbances: 1-Very Mild Itch/Numbness Auditory Disturbances: 0-None Visual Disturbances: 0-None Headache: 1-Very Mild CIWA-Ar Total Score: 19 BHS COWS - Scale Resting Pulse: 0= [place] 80 or Below Sweatin=Flushed/Facial Moisture Restless Observation: 3= Extraneous Movement Pupil Size: 0= Normal to Room Light Bone or Joint Aches: 2= Severe Diffuse Aches Runny Nose/ Eye Tearin= Runny Nose/Eyes GI Upset > 30mins: 2= Nausea/Diarrhea Tremor Observation of Outstretched Hands: 2= Slight Tremor Visible Yawning Observation: 0= None Anxiety or Irritability: 2=Irritable/Anxious Goose Flesh Skin: 0=Smooth Skin COWS Score: 15 S Progress Note (SOAP) Subjective: Nausea, sweating, tremor, chills, anxious Objective: 03/16/17 13:23 Last Vital Signs Temp Pulse Resp BP Pulse Ox 99.0 F 77 18 134/83 03/16/17 13:06 03/16/17 13:06 03/16/17 13:06 03/16/17 13:06 Laboratory Tests 03/14/17 03/15/17 03/15/17 21:00 06:00 06:00 WBC 5.8 RBC 4.29 Hgb 12.4 Hct 38.0 MCV 88.6 MCH 28.8 MCHC 32.5 RDW 14.3 Plt Count 203 MPV 10.1 Sodium 139 Potassium 3.5 Chloride 103 Carbon Dioxide 29 Anion Gap 7 L BUN 12 D Creatinine 0.8 D Creat Clearance w eGFR > 60 Random Glucose 95 Calcium 8.7 Total Bilirubin 0.3 D AST 19 ALT 19 D Alkaline Phosphatase 74 Total Protein 7.0 Albumin 3.2 L Urine Color Dkyellow Urine Appearance Slcloudy Urine pH 5.0 D Ur Specific [place] 1.025 Urine Protein Negative Urine Glucose (UA) Negative Urine Ketones Negative Urine Blood Negative Urine Nitrite Negative Urine Bilirubin Negative Urine Urobilinogen 2.0 Ur Leukocyte Esterase Negative RPR Titer 03/15/17 06:00 WBC RBC Hgb Hct MCV MCH MCHC RDW Plt Count MPV Sodium Potassium Chloride Carbon Dioxide Anion Gap BUN Creatinine Creat Clearance w eGFR Random Glucose Calcium Total Bilirubin AST ALT Alkaline Phosphatase Total Protein Albumin Urine Color Urine Appearance Urine pH Ur Specific [place] Urine Protein Urine Glucose (UA) Urine Ketones Urine Blood Urine Nitrite Urine Bilirubin Urine Urobilinogen Ur Leukocyte Esterase RPR Titer Nonreactive Labs noted Assessment: 03/16/17 13:23 Withdrawal symptoms Plan: Continue detox
[2017-03-16] MEDS: chlordiazePOXIDE 5 MG CAPSULE PO SCH ×2 (17:31→22:04)
[2017-03-16] MEDS: LATANOPROST 0.005% OPHTH SOLN 2.5ML BOTTLE OU SCH (22:04)
[2017-03-16] MEDS: QUEtiapine FUMARATE 100 MG TABLET (FP) PO SCH (22:04)
[2017-03-16] MEDS: ZOLPIDEM TARTRATE 10 MG TABLET (PARK CARE ONLY) PO PRN (22:04)
[2017-03-16] MEDS: THIAMINE HCL 100 MG TABLET (FP) PO SCH (22:04)
[2017-03-17] MEDS: chlordiazePOXIDE 5 MG CAPSULE PO SCH ×2 (06:19→10:11)
[2017-03-17] MEDS: amLODIPine BESYLATE 10 MG TABLET (FP) PO SCH (10:08)
[2017-03-17] MEDS: PRENATAL VITAMINS W/ FOLIC ACID TABLET (FP) PO SCH (10:08)
[2017-03-17] MEDS: LISINOPRIL 20 MG TABLET (FP) PO SCH (10:08)
[2017-03-17] MEDS: METHADONE HCL 5 MG TABLET (FOR DETOX USE ONLY) PO SCH (10:08)
[2017-03-17] MEDS: METOPROLOL TARTRATE 50 MG TABLET (FP) PO SCH (10:08)
[2017-03-17] MEDS: GENVOYA PO SCH (10:11)
[2017-03-17] MEDS: NICOTINE 21 MG/24 HOURS TOPICAL PATCH TD SCH (10:11)
--- NOTE | 2017-03-17 10:59 | PN ---
S Progress Note (SOAP) Subjective: ALERT O X 3.SLIGHT FATIGUE. DETOX PROCEEDING WELL. Objective: 03/17/17 10:58 Vital Signs 03/17/17 03/17/17 03/17/17 03:25 06:02 10:24 Temperature 97 F L 95.9 F L Pulse Rate 70 107 H Respiratory 18 18 16 Rate Blood Pressure 132/80 146/99 Laboratory Last Values WBC 5.8 K/mm3 (4.0-10.0) 03/15/17 06:00 RBC 4.29 M/mm3 (4.00-5.60) 03/15/17 06:00 Hgb 12.4 GM/dL (11.7-16.9) 03/15/17 06:00 Hct 38.0 % (35.4-49) 03/15/17 06:00 MCV 88.6 fl (80-96) 03/15/17 06:00 MCH 28.8 pg (25.7-33.7) 03/15/17 06:00 MCHC 32.5 g/dl (32.0-35.9) 03/15/17 06:00 RDW 14.3 % (11.9-15.9) 03/15/17 06:00 Plt Count 203 K/MM3 (134-434) 03/15/17 06:00 MPV 10.1 fl (7.5-11.1) 03/15/17 06:00 Sodium 139 mmol/L (136-145) 03/15/17 06:00 Potassium 3.5 mmol/L (3.5-5.1) 03/15/17 06:00 Chloride 103 mmol/L (98-107) 03/15/17 06:00 Carbon Dioxide 29 mmol/L (21-32) 03/15/17 06:00 Anion Gap 7 (8-16) L 03/15/17 06:00 BUN 12 mg/dL (7-18) D 03/15/17 06:00 Creatinine 0.8 mg/dL (0.7-1.3) D 03/15/17 06:00 Creat Clearance w eGFR > 60 (>60) 03/15/17 06:00 Random Glucose 95 mg/dL (74-106) 03/15/17 06:00 Calcium 8.7 mg/dL (8.5-10.1) 03/15/17 06:00 Total Bilirubin 0.3 mg/dL (0.2-1.0) D 03/15/17 06:00 AST 19 U/L (15-37) 03/15/17 06:00 ALT 19 U/L (12-78) D 03/15/17 06:00 Alkaline Phosphatase 74 U/L (45-117) 03/15/17 06:00 Total Protein 7.0 g/dl (6.4-8.2) 03/15/17 06:00 Albumin 3.2 g/dl (3.4-5.0) L 03/15/17 06:00 Urine Color Dkyellow 03/14/17 21:00 Urine Appearance Slcloudy 03/14/17 21:00 Urine pH 5.0 (5.0-8.0) D 03/14/17 21:00 Ur Specific [place] 1.025 (1.005-1.025) 03/14/17 21:00 Urine Protein Negative (NEGATIVE) 03/14/17 21:00 Urine Glucose (UA) Negative (NEGATIVE) 03/14/17 21:00 Urine Ketones Negative (NEGATIVE) 03/14/17 21:00 Urine Blood Negative (NEGATIVE) 03/14/17 21:00 Urine Nitrite Negative (NEGATIVE) 03/14/17 21:00 Urine Bilirubin Negative (NEGATIVE) 03/14/17 21:00 Urine Urobilinogen 2.0 mg/dL (0.2-1.0) 03/14/17 21:00 Ur Leukocyte Esterase Negative (NEGATIVE) 03/14/17 21:00 RPR Titer Nonreactive (NONREACTIVE) 03/15/17 06:00 Assessment: 03/17/17 10:59 WITHDRAWAL SX Plan: CONTINUE DETOX
[2017-03-17] MEDS: chlordiazePOXIDE HCL 10 MG CAPSULE PO SCH ×2 (17:58→22:19)
[2017-03-17] MEDS: ZOLPIDEM TARTRATE 10 MG TABLET (PARK CARE ONLY) PO PRN (22:00)
[2017-03-17] MEDS: THIAMINE HCL 100 MG TABLET (FP) PO SCH (22:19)
[2017-03-17] MEDS: LATANOPROST 0.005% OPHTH SOLN 2.5ML BOTTLE OU SCH (22:19)
[2017-03-17] MEDS: QUEtiapine FUMARATE 100 MG TABLET (FP) PO SCH (22:19)
[2017-03-18] MEDS: chlordiazePOXIDE HCL 10 MG CAPSULE PO SCH ×2 (06:32→10:21)
[2017-03-18] MEDS ORDERED: METHADONE HCL 10 MG TABLET (FOR DETOX USE ONLY) PO SCH (10:00)
[2017-03-18] MEDS: LISINOPRIL 20 MG TABLET (FP) PO SCH (10:16)
[2017-03-18] MEDS: PRENATAL VITAMINS W/ FOLIC ACID TABLET (FP) PO SCH (10:16)
[2017-03-18] MEDS: METOPROLOL TARTRATE 50 MG TABLET (FP) PO SCH (10:16)
[2017-03-18] MEDS: GENVOYA PO SCH (10:17)
[2017-03-18] MEDS: amLODIPine BESYLATE 10 MG TABLET (FP) PO SCH (10:17)
[2017-03-18] MEDS: NICOTINE 21 MG/24 HOURS TOPICAL PATCH TD SCH (10:18)
--- NOTE | 2017-03-18 10:27 | PN ---
BHS Progress Note (SOAP) Subjective: SLIGHT ANXIETY, TREMORS. SWEATS,FATIGUE. Objective: 03/18/17 10:27 Vital Signs Temperature 96.4 F L 03/18/17 06:38 Pulse Rate 97 H 03/18/17 06:38 Respiratory Rate 18 10 06:38 Blood Pressure 154/89 03/18/17 06:38 O2 Sat by Pulse Oximetry (%) Laboratory Last Values WBC 5.8 K/mm3 (4.0-10.0) 03/15/17 06:00 RBC 4.29 M/mm3 (4.00-5.60) 03/15/17 06:00 Hgb 12.4 GM/dL (11.7-16.9) 03/15/17 06:00 Hct 38.0 % (35.4-49) 03/15/17 06:00 MCV 88.6 fl (80-96) 03/15/17 06:00 MCH 28.8 pg (25.7-33.7) 03/15/17 06:00 MCHC 32.5 g/dl (32.0-35.9) 03/15/17 06:00 RDW 14.3 % (11.9-15.9) 03/15/17 06:00 Plt Count 203 K/MM3 (134-434) 03/15/17 06:00 MPV 10.1 fl (7.5-11.1) 03/15/17 06:00 Sodium 139 mmol/L (136-145) 03/15/17 06:00 Potassium 3.5 mmol/L (3.5-5.1) 03/15/17 06:00 Chloride 103 mmol/L (98-107) 03/15/17 06:00 Carbon Dioxide 29 mmol/L (21-32) 03/15/17 06:00 Anion Gap 7 (8-16) L 03/15/17 06:00 BUN 12 mg/dL (7-18) D 03/15/17 06:00 Creatinine 0.8 mg/dL (0.7-1.3) D 03/15/17 06:00 Creat Clearance w eGFR > 60 (>60) 03/15/17 06:00 Random Glucose 95 mg/dL (74-106) 03/15/17 06:00 Calcium 8.7 mg/dL (8.5-10.1) 03/15/17 06:00 Total Bilirubin 0.3 mg/dL (0.2-1.0) D 03/15/17 06:00 AST 19 U/L (15-37) 03/15/17 06:00 ALT 19 U/L (12-78) D 03/15/17 06:00 Alkaline Phosphatase 74 U/L (45-117) 03/15/17 06:00 Total Protein 7.0 g/dl (6.4-8.2) 03/15/17 06:00 Albumin 3.2 g/dl (3.4-5.0) L 03/15/17 06:00 Urine Color Dkyellow 03/14/17 21:00 Urine Appearance Slcloudy 03/14/17 21:00 Urine pH 5.0 (5.0-8.0) D 03/14/17 21:00 Ur Specific [place] 1.025 (1.005-1.025) 03/14/17 21:00 Urine Protein Negative (NEGATIVE) 03/14/17 21:00 Urine Glucose (UA) Negative (NEGATIVE) 03/14/17 21:00 Urine Ketones Negative (NEGATIVE) 03/14/17 21:00 Urine Blood Negative (NEGATIVE) 03/14/17 21:00 Urine Nitrite Negative (NEGATIVE) 03/14/17 21:00 Urine Bilirubin Negative (NEGATIVE) 03/14/17 21:00 Urine Urobilinogen 2.0 mg/dL (0.2-1.0) 03/14/17 21:00 Ur Leukocyte Esterase Negative (NEGATIVE) 03/14/17 21:00 RPR Titer Nonreactive (NONREACTIVE) 03/15/17 06:00 Assessment: 03/18/17 10:27 WITHDRAWAL SX Plan: CONTINUE DETOX
[2017-03-18] MEDS: LATANOPROST 0.005% OPHTH SOLN 2.5ML BOTTLE OU SCH (22:13)
[2017-03-18] MEDS: QUEtiapine FUMARATE 100 MG TABLET (FP) PO SCH (22:13)
[2017-03-18] MEDS: THIAMINE HCL 100 MG TABLET (FP) PO SCH (22:13)
[2017-03-19] MEDS ORDERED: METHADONE HCL 5 MG TABLET (FOR DETOX USE ONLY) PO SCH (06:00)
[2017-03-19] MEDS ORDERED: ELVITEG/COB/EMTRI/TENOF (GENVOYA) TABLET (NF) PO SCH (08:00)
[2017-03-19 09:35] VITALS: BP 169/97; PULSE 98; TEMP 97
--- NOTE | 2017-03-19 12:07 | DS ---
[facility] Detox Discharge Summary Admission Date: 03/14/17 Discharge Date: 03/19/17 - History Present History: Alcohol Dependence, Opioid Dependence Additional Comments: PATIENT GOING HOME AT THIS TIME. PATIENT ADVISED TO CONSIDER LOCAL 12-STEP / AA / NA OUTPATIENT SUPPORT GROUP MEETINGS FOR AFTERCARE. PATIENT WAS DISCHARGED FROM DETOX UNIT IN STABLE MEDICAL CONDITION. Pertinent Past History: HTN, Glaucoma, HIV, Depression, Insomnia, Nicotine Dependence. - Physical Exam Results Vital Signs: Vital Signs Temperature 97.0 F L 03/19/17 09:34 Pulse Rate 98 H 03/19/17 09:34 Respiratory Rate 18 03/19/17 09:34 Blood Pressure 169/97 03/19/17 09:34 O2 Sat by Pulse Oximetry (%) Pertinent Admission Physical Exam Findings: WITHDRAWAL SYMPTOMS. Laboratory Tests 03/14/17 03/15/17 03/15/17 21:00 06:00 06:00 WBC 5.8 RBC 4.29 Hgb 12.4 Hct 38.0 MCV 88.6 MCH 28.8 MCHC 32.5 RDW 14.3 Plt Count 203 MPV 10.1 Sodium 139 Potassium 3.5 Chloride 103 Carbon Dioxide 29 Anion Gap 7 L BUN 12 D Creatinine 0.8 D Creat Clearance w eGFR > 60 Random Glucose 95 Calcium 8.7 Total Bilirubin 0.3 D AST 19 ALT 19 D Alkaline Phosphatase 74 Total Protein 7.0 Albumin 3.2 L Urine Color Dkyellow Urine Appearance Slcloudy Urine pH 5.0 D Ur Specific [place] 1.025 Urine Protein Negative Urine Glucose (UA) Negative Urine Ketones Negative Urine Blood Negative Urine Nitrite Negative Urine Bilirubin Negative Urine Urobilinogen 2.0 Ur Leukocyte Esterase Negative RPR Titer 03/15/17 06:00 WBC RBC Hgb Hct MCV MCH MCHC RDW Plt Count MPV Sodium Potassium Chloride Carbon Dioxide Anion Gap BUN Creatinine Creat Clearance w eGFR Random Glucose Calcium Total Bilirubin AST ALT Alkaline Phosphatase Total Protein Albumin Urine Color Urine Appearance Urine pH Ur Specific [place] Urine Protein Urine Glucose (UA) Urine Ketones Urine Blood Urine Nitrite Urine Bilirubin Urine Urobilinogen Ur Leukocyte Esterase RPR Titer Nonreactive LABS NOTED. - Treatment Hospital Course: Detox Protocol Followed, Detoxed Safely, Responded well, Discharged Condition Good Patient has Accepted a Rehab Referral to: NO. PT ADVISED TO CONSIDE LOCAL 12- STEP/NA/AA SUPPORT GROUPS FOR AFTERCARE. - Medication Discharge Medications: Ambulatory Orders Amlodipine Besylate [Norvasc -] 10 mg PO DAILY 03/14/17 Benazepril HCl 20 mg PO DAILY 03/14/17 Elviteg/Cob/Emtri/Tenof Alafen [Genvoya Tablet] 1 each PO DAILY 03/14/17 Quetiapine Fumarate [Seroquel] 100 mg PO HS #30 tablet 03/15/17 Metoprolol Tartrate [Lopressor -] 50 mg PO DAILY #30 mg 03/19/17 - Diagnosis (1) Alcohol dependence with uncomplicated withdrawal Status: Acute (2) Opioid dependence with withdrawal Status: Acute (3) Substance induced mood disorder Status: Acute (4) Depression (emotion) Status: Chronic Qualifiers: Depression Type: dysthymia Qualified Code(s): F34.1 - Dysthymic disorder; F34.1 - Dysthymic disorder; F34.1 - Dysthymic disorder (5) Glaucoma Status: Chronic Qualifiers: Glaucoma type: unspecified Laterality: unspecified laterality Qualified Code(s): H40.9 - Unspecified glaucoma; H40.9 - Unspecified glaucoma (6) HIV (human immunodeficiency virus infection) Status: Chronic (7) Hypertension Status: Chronic Qualifiers: Hypertension type: essential hypertension Qualified Code(s): I10 - Essential (primary) hypertension; I10 - Essential (primary) hypertension; I10 - Essential (primary) hypertension (8) Insomnia Status: Chronic Qualifiers: Insomnia type: unspecified Qualified Code(s): G47.00 - Insomnia, unspecified; G47.00 - Insomnia, unspecified (9) Nicotine dependence Status: Chronic Qualifiers: Nicotine product type: cigarettes Substance use status: uncomplicated Qualified Code(s): F17.210 - Nicotine dependence, cigarettes, uncomplicated; F17.210 - Nicotine dependence, cigarettes, uncomplicated - AMA Did Patient Leave Against Medical Advice: No
== END 2017-03-19 09:37 | disposition home or self-care (01) | DRG 773 ==
LOC: YASAS 10:59 → Y3N 15:32
PROVIDERS: ADMIT Internal Medicine; ATTEND Internal Medicine
PROC: HZ2ZZZZ Detoxification Services for Substance Abuse Treatment (ICD-10-PCS; principal; 2017-03-14)
DX: F11.23 Opioid dependence with withdrawal (principal); F10.230 Alcohol dependence with withdrawal, uncomplicated; F17.210 Nicotine dependence, cigarettes, uncomplicated; F19.24 Other psychoactive substance dependence with psychoactive substance-induced mood disorder; F34.1 Dysthymic disorder; I10 Essential (primary) hypertension; Z21 Asymptomatic human immunodeficiency virus [HIV] infection status; H40.9 Unspecified glaucoma; G47.00 Insomnia, unspecified; Z91.14 Patient's other noncompliance with medication regimen; Z87.438 Personal history of other diseases of male genital organs
CPT/HCPCS: 36415; 80053; 81003; 85027; 86593; 93005; 93010

== ENCOUNTER 2017-10-21 13:22 | Inpatient (IN) | payer OTHER ==
[2017-10-21 15:49] VITALS: BMI 27.8
--- NOTE | 2017-10-21 17:35 | HP ---
COWS - Scale Resting Pulse: 0= [place] 80 or Below Sweatin= No chills or Flushing Restless Observation: 0= Sits Still Pupil Size: 1= Pupils >than Normal Bone or Joint Aches: 0= None Runny Nose/ Eye Tearin= Runny Nose/Eyes GI Upset > 30mins: 3= Vomiting/Diarrhea (reports vomiting 5x) Tremor Observation: 1= Tremor [place], Not Seen Yawning Observation: 0= None Anxiety or Irritability: 1=Feels Anxious/Irritable Goose Flesh Skin: 0=Smooth Skin COWS Score: 8 CIWA Score - CIWA Score Nausea/Vomitin-Int. Nausea w/Dry Heave Muscle Tremors: 1-None Visible, but [place] Anxiety: 2 Agitation: 0-Normal Activity Paroxysmal Sweats: 2 Orientation: 0-Oriented Tacttile Disturbances: 0-None Auditory Disturbances: 0-None Visual Disturbances: 0-None Headache: 0-None Present CIWA-Ar Total Score: 9 Admission ROS S - HPI Chief Complaint: heroin and alcohol withdrawal symptoms Allergies/Adverse Reactions: Allergies Allergy/AdvReac Type Severity Reaction Status Date / Time No Known Allergies Allergy Verified 10/21/17 17:35 History of Present Illness: 51 yo male with hx alcohol, heroin, nicotine dependence is here seeking detox. PMHX: HTN, insomnia, glaucoma, HIV+. Last detox [facility] 07/29/17 - 08/03/17. Denies suicidal / homicidal ideation. Denies hx of blackouts or seizures. Exam Limitations: No Limitations - Ebola screening Have you traveled outside of the country in the last 21 days: No Have you had contact with anyone from an Ebola affected area: No Have you been sick,other than usual withdrawal symptoms: No Do you have a fever: No - Review of Systems Constitutional: Loss of Appetite, Changes in sleep, Unintentional Wgt. Loss (10 lbs 3 moths) EENT: reports: Other (wears glasses, hx of cataracts unsure which eye) Respiratory: reports: Cough (x 3 days) Cardiac: reports: No Symptoms Reported GI: reports: Constipated (last BM yesterday), Poor Appetite, Poor Fluid Intake, Vomiting : reports: No Symptoms Reported Musculoskeletal: reports: No Symptoms Reported Integumentary: reports: No Symptoms Reported Neuro: reports: No Symptoms reported Endocrine: reports: Increased Thirst Hematology: reports: See HPI Psychiatric: reports: Orientated x3, Depressed Other Systems: Reviewed and Negative Patient History - Patient Medical History Hx Anemia: No Hx Asthma: No Hx Chronic Obstructive Pulmonary Disease (COPD): No Hx Cancer: No Hx Cardiac Disorders: No Hx Congestive Heart Failure: No Hx Hypertension: Yes (NON COMPLIANT WITH MEDS.) Hx Hypercholesterolemia: No Hx Pacemaker: No HX Cerebrovascular Accident: No Hx Seizures: No Hx Dementia: No Hx Diabetes: No Hx Gastrointestinal Disorders: No Hx Liver Disease: No Hx Genitourinary Disorders: No Hx Sexually Transmitted Disorders: Yes (Hx of gonnorhea.) Hx Renal Disease (ESRD): No Hx Thyroid Disease: No Hx Human Immunodeficiency Virus (HIV): Yes (SINCE 2002 ON MED) Hx Hepatitis C: No Hx Depression: Yes Hx Suicide Attempt: No (no si at this time) Hx Bipolar Disorder: No Hx Schizophrenia: No - Patient Surgical History Past Surgical History: No Hx Neurologic Surgery: No Hx Cataract Extraction: No Hx Cardiac Surgery: No Hx Lung Surgery: No Hx Breast Surgery: No Hx Breast Biopsy: No Hx Abdominal Surgery: No Hx Appendectomy: No Hx Cholecystectomy: No Hx Genitourinary Surgery: No Hx Section: No Hx Orthopedic Surgery: No Anesthesia Reaction: No - PPD History Date: 07/31/17 Results: 0 mm - Smoking Cessation Smoking history: Current every day smoker Have you smoked in the past 12 months: Yes Aproximately how many cigarettes per day: 10 Hx Chewing Tobacco Use: No Initiated information on smoking cessation: Yes 'Breaking Loose' booklet given: 10/21/17 - Substance & Tx. History Hx Alcohol Use: Yes Hx Substance Use: Yes Substance Use Type: Alcohol, Heroin Hx Substance Use Treatment: Yes (07/29/17 - 08/03/17) - Substances Abused Alcohol Route: Oral Frequency: Daily Amount used: 4- 5 x 16 oz Age of first use: 21 Date of Last Use: 10/21/17 Heroin Route: Inhalation Frequency: Daily Amount used: 10 BAGS Age of first use: 49 Date of Last Use: 10/21/17 Family Disease History - Family Disease History Family Disease History: Diabetes: Brother, Other: Father (ALCOHOL) Admission Physical Exam [facility] - Vital Signs Vital Signs: Vital Signs - 24 hr 10/21/17 15:48 Temperature 97.9 F Pulse Rate 79 Respiratory 20 Rate Blood Pressure 144/96 - Physical General Appearance: Yes: No Apparent Distress, Appropriately Dressed, Thin, Sweating HEENTM: Yes: EOMI, Normal ENT Inspection, Normocephalic, Normal Voice, ANDREA, Pharynx Normal, Tm's normal, Other (poor dentition) Respiratory: Yes: Chest Non-Tender, Lungs Clear, Normal Breath Sounds, No Respiratory Distress, No Accessory Muscle Use Neck: Yes: Within Normal Limits Breast: Yes: Breast Exam Deferred Cardiology: Yes: Regular Rhythm, Regular Rate, Murmur Abdominal: Yes: Normal Bowel Sounds, Non Tender, Soft, Protuberent Genitourinary: Yes: Within Normal Limits Back: Yes: Normal Inspection Musculoskeletal: Yes: full range of Motion Extremities: Yes: Normal Capillary Refill, Normal Inspection, Normal Range of Motion, Non-Tender 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 intact, Fully Oriented, Alert, Motor Strength 5/5 Integumentary: Yes: Normal Color, Warm, Moist Lymphatic: Yes: Within Normal Limits - Diagnostic (1) Alcohol dependence with uncomplicated withdrawal Current Visit: Yes Status: Acute (2) Opioid dependence with withdrawal Current Visit: Yes Status: Acute (3) Depression (emotion) Current Visit: Yes Status: Chronic Qualifiers: Depression Type: dysthymia Qualified Code(s): F34.1 - Dysthymic disorder (4) Glaucoma Current Visit: Yes Status: Chronic Qualifiers: Glaucoma type: other Laterality: bilateral Qualified Code(s): H40.89 - Other specified glaucoma Comment: patient states that he has glaucoma x 6 months last eye drop a month ago unable to remember the name of the medication wait for home med list from pharmacy (5) HIV (human immunodeficiency virus infection) Current Visit: Yes Status: Chronic Comment: nomn-adherent with medications, unable to recall current antivirals taking (6) Hypertension Current Visit: Yes Status: Chronic Qualifiers: Hypertension type: essential hypertension Comment: lisinopril (7) Nicotine dependence Current Visit: Yes Status: Chronic Qualifiers: Nicotine product type: cigarettes Cleared for Admission [facility] - Detox or Rehab [facility] Level of Care: Medically Supervised Detox Regimen/Protocol: Methadone/Librium S Breath Alcohol Content Breath Alcohol Content: 0 Urine Drug Screen - Results Drug Screen Negative: No Urine Drug Screen Results: OPI-Opiates
[2017-10-21] MEDS ORDERED: MAG HYDROX/AL HYDROX/SIMETH 30 ML UNIT-DOSE CUP PO PRN (19:13)
[2017-10-21] MEDS ORDERED: NICOTINE POLACRILEX 2 MG GUM BC PRN (19:13)
[2017-10-21] MEDS ORDERED: LOPERAMIDE HCL 2 MG CAPSULE PO PRN (19:13)
[2017-10-21] MEDS ORDERED: IBUPROFEN 400 MG TABLET (FP) PO PRN (19:13)
[2017-10-21] MEDS ORDERED: hydrOXYzine PAMOATE 50 MG CAPSULE (FP) PO PRN (19:13)
[2017-10-21] MEDS ORDERED: MAGNESIUM HYDROX 2400MG/30ML ORAL SUSPENSION 30 ML CUP PO PRN (19:13)
[2017-10-21] MEDS ORDERED: chlordiazePOXIDE HCL 25 MG CAPSULE PO PRN (19:13)
[2017-10-21] MEDS ORDERED: guaiFENesin/D-METHORPHAN HB 10 ML UNIT-DOSE CUPS PO PRN (19:13)
[2017-10-21] MEDS ORDERED: P-EPHED 60MG/TRIPROLIDI 2.5MG TABLET PO PRN (19:13)
[2017-10-21] MEDS ORDERED: ACETAMINOPHEN 325 MG TABLET (FP) PO PRN (19:13)
[2017-10-21] MEDS ORDERED: MAGNESIUM CITRATE 300 ML BOTTLE PO PRN (19:13)
[2017-10-21] MEDS ORDERED: MENTHOL/PHENOL 1 EACH UD MM PRN (19:13)
[2017-10-21] MEDS ORDERED: METHADONE HCL 10 MG TABLET (FOR DETOX USE ONLY) PO ONE ×2 (19:30→23:00)
[2017-10-21] MEDS ORDERED: chlordiazePOXIDE HCL 25 MG CAPSULE PO ONE (19:30)
[2017-10-21] MEDS ORDERED: diphenhydrAMINE HCL 25 MG CAPSULE (FP) PO ONE (21:39)
[2017-10-21] MEDS: THIAMINE HCL 100 MG TABLET (FP) PO SCH (22:38)
[2017-10-21] MEDS: LATANOPROST 0.005% OPHTH SOLN 2.5ML BOTTLE OS SCH (22:39)
[2017-10-21] MEDS: chlordiazePOXIDE HCL 25 MG CAPSULE PO SCH (22:40)
[2017-10-22] MEDS: chlordiazePOXIDE HCL 25 MG CAPSULE PO SCH ×4 (05:23→22:28)
[2017-10-22 06:54] LABS: URINE APPEARANCE CLEAR; URINE BILIRUBIN NEGATIVE (<2.0 mg/dL); URINE COLOR LTYELLOW; URINE GLUCOSE (UA) NEGATIVE (NEGATIVE); URINE KETONE NEGATIVE (NEGATIVE); URINE LEUK ESTERASE NEGATIVE (NEGATIVE); URINE NITRITE NEGATIVE (NEGATIVE); URINE PROTEIN NEGATIVE (NEGATIVE); URINE UROBILINOGEN NEGATIVE mg/dL (0.2-1.0)
[2017-10-22] MEDS ORDERED: LISINOPRIL 10 MG TABLET (FP) PO SCH (10:00)
[2017-10-22] MEDS ORDERED: METHADONE HCL 10 MG TABLET (FOR DETOX USE ONLY) PO SCH (10:00)
[2017-10-22] MEDS: PRENATAL VITAMINS W/ FOLIC ACID TABLET (FP) PO SCH (10:22)
[2017-10-22] MEDS: NICOTINE 14 MG/24 HOURS TOPICAL PATCH TD SCH (10:22)
[2017-10-22 10:46] LABS: ANION GAP 5 (8-16); BLOOD UREA NITROGEN 10 mg/dL (7-18); CALCIUM 8.3 mg/dL (8.5-10.1); CHLORIDE 107 mmol/L (98-107); CO2 29 mmol/L (21-32); GLUCOSE,RANDOM 93 mg/dL (74-106); POTASSIUM 3.8 mmol/L (3.5-5.1); SODIUM 141 mmol/L (136-145)
[2017-10-22 10:49] LABS: ALK PHOS 64 U/L (45-117); BILIRUBIN,TOTAL 0.3 mg/dL (0.2-1.0); CREATININE 0.9 mg/dL (0.7-1.3); SGOT/AST 21 U/L (15-37); SGPT/ALT 11 U/L (12-78); TOT PROT 7.1 g/dl (6.4-8.2)
[2017-10-22 10:50] LABS: HEMATOCRIT 36.9 % (35.4-49); HEMOGLOBIN 12.1 GM/dL (11.7-16.9); MCH 28.1 pg (25.7-33.7); MCHC 32.9 g/dl (32.0-35.9); MEAN CELL VOLUME 85.6 fl (80-96); MEAN PLT VOLUME 8.7 fl (7.5-11.1); PLATELET COUNT 235 K/MM3 (134-434); RBC 4.31 M/mm3 (4.00-5.60); WHITE BLOOD COUNT 5.9 K/mm3 (4.0-10.0)
--- NOTE | 2017-10-22 13:30 | EKG ---
Test Reason : Blood Pressure : / mmHG Vent. Rate : 063 BPM Atrial Rate : 063 BPM P-R Int : 174 ms QRS Dur : 088 ms QT Int : 410 ms P-R-T Axes : 064 006 010 degrees QTc Int : 419 ms NORMAL SINUS RHYTHM MODERATE VOLTAGE CRITERIA FOR LVH, MAY BE NORMAL VARIANT BORDERLINE ECG WHEN COMPARED WITH ECG OF 29-JUL-2017 21:37, NO SIGNIFICANT CHANGE WAS FOUND Confirmed by KAMALJIT WALDEN, INNA ([id number]) on 10/22/2017 1:30:04 PM Referred By: Confirmed By:INNA MARI MD
--- NOTE | 2017-10-22 14:18 | PN ---
[facility] CIWA - CIWA Score Nausea/Vomitin-No Nausea/No Vomiting Muscle Tremors: 2 Anxiety: 3 Agitation: 3 Paroxysmal Sweats: No Perspiration Orientation: 2-Disoriented Date<2 days Tacttile Disturbances: 2-Mild Itch/Numbness/Burn Auditory Disturbances: 0-None Visual Disturbances: 3-Moderate Sensitivity Headache: 0-None Present CIWA-Ar Total Score: 15 BHS COWS - Scale Resting Pulse: 0= [place] 80 or Below Sweatin= No chills or Flushing Restless Observation: 1= Difficult to Sit Still Pupil Size: 0= Normal to Room Light Bone or Joint Aches: 2= Severe Diffuse Aches Runny Nose/ Eye Tearin= Runny Nose/Eyes GI Upset > 30mins: 0= None Tremor Observation of Outstretched Hands: 2= Slight Tremor Visible Yawning Observation: 1= 1-2x During Session Anxiety or Irritability: 2=Irritable/Anxious Goose Flesh Skin: 3=[place] COWS Score: 13 S Progress Note (SOAP) Subjective: Body Aches, Sweating, Tremors, Fatigue. Objective: PATIENT A & O X 2 (UNCERTAIN ABOUT CURRENT DAY / DATE). NO ACUTE DISTRESS. 10/22/17 14:16 Vital Signs Temperature 97.6 F 10/22/17 13:33 Pulse Rate 79 10/22/17 13:33 Respiratory Rate 18 10/22/17 13:33 Blood Pressure 165/89 10/22/17 13:33 O2 Sat by Pulse Oximetry (%) Laboratory Tests 10/21/17 10/22/17 10/22/17 23:19 07:30 07:30 WBC 5.9 RBC 4.31 Hgb 12.1 Hct 36.9 MCV 85.6 MCH 28.1 MCHC 32.9 RDW 15.0 Plt Count 235 MPV 8.7 Sodium 141 Potassium 3.8 Chloride 107 Carbon Dioxide 29 Anion Gap 5 L BUN 10 Creatinine 0.9 Creat Clearance w eGFR > 60 Random Glucose 93 Calcium 8.3 L Total Bilirubin 0.3 D AST 21 ALT 11 L Alkaline Phosphatase 64 Total Protein 7.1 Albumin 3.0 L Urine Color Ltyellow Urine Appearance Clear Urine pH 6.0 Ur Specific [place] 1.009 Urine Protein Negative Urine Glucose (UA) Negative Urine Ketones Negative Urine Blood Negative Urine Nitrite Negative Urine Bilirubin Negative Urine Urobilinogen Negative Ur Leukocyte Esterase Negative LABS NOTED. Assessment: 10/22/17 14:16 WITHDRAWAL SYMPTOMS. HYPERTENSION. 10/22/17 14:17 Plan: CONTINUE DETOX. INCREASE DAILY PO FLUID INTAKE. INCREASE LISINOPRIL TO 20 MG PO DAILY FOR PERSISTENTLY ELEVATED BP.
[2017-10-22] MEDS ORDERED: LISINOPRIL 10 MG TABLET (FP) PO ONE (14:45)
--- NOTE | 2017-10-22 15:54 | CONSULT ---
[facility] Psychiatric Consult - Data Date of interview: 10/22/17 Admission source: [facility] Identifying data: Readmission to [facility] for this 51 y/o AA male seeking detox treatment on for alcohol and heroin dependence.Patient is ,a father of one,domiciled,unemployed,reportedly deprived of income and supported by relatives. Substance Abuse History: Confirmed by patient in this interview.Smoking history : Current every day smoker. Have you smoked in the past 12 months: Yes. Aproximately how many cigarettes per day: 10. Hx Chewing Tobacco Use: No. Initiated information on smoking cessation: Yes. 'Breaking Loose' booklet given : 10/21/17. - Substance & Tx. History. Hx Alcohol Use: Yes. Hx Substance Use : Yes. Substance Use Type: Alcohol, Heroin. Hx Substance Use Treatment: Yes ( - 08/03/17). - Substances Abused. Alcohol. Route: Oral. Frequency: Daily. Amount used: 4- 5 x 16 oz. Age of first use: 21. Date of Last Use: . Heroin. Route: Inhalation. Frequency: Daily. Amount used: 10 BAGS. Age of first use: 49. Date of Last Use: 10/21/17 Medical History: HIV infection since 2002,hypertension,glaucoma and past treatment for gonorrhea. Psychiatric History: Patient denies history of psychiatric hospitalizations in this interview.Reportedly diagnosed with MDD.Mr Patel gets his OPD care at the [facility] in the [place].NOT on psychotropic medications.Patient denies history of suicide attempts. Physical/Sexual Abuse/Trauma History: Patient denies. Additional Comment: Urine Drug Screen Results: OPI-Opiates.Noted. Mental Status Exam - Mental Status Exam Alert and Oriented to: Time, Place, Person Cognitive Function: Good Patient Appearance: Disheveled Mood: Nervous, Withdrawn Affect: Mood Congruent Patient Behavior: Fatigued, Cooperative Speech Pattern: Clear Voice Loudness: Normal Thought Process: Goal Oriented Thought Disorder: Not Present Hallucinations: Denies Suicidal Ideation: Denies Homicidal Ideation: Denies Insight/Judgement: Poor Sleep: Well Appetite: Good Muscle strength/Tone: Normal Gait/Station: Normal Psychiatric Findings - Problem List ([place] 1, 2,3) (1) Opioid dependence with withdrawal Current Visit: Yes Status: Acute (2) Alcohol dependence with uncomplicated withdrawal Current Visit: Yes Status: Acute (3) Nicotine dependence Current Visit: Yes Status: Acute Qualifiers: Nicotine product type: cigarettes Substance use status: uncomplicated Qualified Code(s): F17.210 - Nicotine dependence, cigarettes, uncomplicated (4) Substance induced mood disorder Current Visit: Yes Status: Acute - Initial Treatment Plan Initial Treatment Plan: Psychoeducation.Sleephygiene.Detoxification in progress.Observation.
[2017-10-22] MEDS: LATANOPROST 0.005% OPHTH SOLN 2.5ML BOTTLE OS SCH (22:27)
[2017-10-22] MEDS: THIAMINE HCL 100 MG TABLET (FP) PO SCH (22:28)
[2017-10-23] MEDS: chlordiazePOXIDE HCL 25 MG CAPSULE PO SCH ×3 (07:42→17:15)
[2017-10-23] MEDS: PRENATAL VITAMINS W/ FOLIC ACID TABLET (FP) PO SCH (10:20)
[2017-10-23] MEDS: METHADONE HCL 5 MG TABLET (FOR DETOX USE ONLY) PO SCH (10:20)
[2017-10-23] MEDS: LISINOPRIL 20 MG TABLET (FP) PO SCH (10:20)
[2017-10-23] MEDS: NICOTINE 14 MG/24 HOURS TOPICAL PATCH TD SCH (10:21)
--- NOTE | 2017-10-23 11:43 | PN ---
S CIWA - CIWA Score Nausea/Vomitin-No Nausea/No Vomiting Muscle Tremors: 4-Moderate,w/Arms Extend Anxiety: 4-Mod. Anxious/Guarded Agitation: 4-Moderately Restless Paroxysmal Sweats: 1-Minimal [place] Moist Orientation: 0-Oriented Tacttile Disturbances: 0-None Auditory Disturbances: 0-None Visual Disturbances: 0-None Headache: 0-None Present CIWA-Ar Total Score: 13 [facility] COWS - Scale Resting Pulse: 0= [place] 80 or Below Sweatin= Chills/Flushing Restless Observation: 3= Extraneous Movement Pupil Size: 0= Normal to Room Light Bone or Joint Aches: 4=Acute Joint/Muscle Pain Runny Nose/ Eye Tearin= Nasal Congestion GI Upset > 30mins: 0= None Tremor Observation of Outstretched Hands: 2= Slight Tremor Visible Yawning Observation: 1= 1-2x During Session Anxiety or Irritability: 2=Irritable/Anxious Goose Flesh Skin: 0=Smooth Skin COWS Score: 14 [facility] Progress Note (SOAP) Subjective: ANXIETY,SWEATS/CHILLS,BACK ACHE,FATIGUE. Objective: 10/23/17 11:42 Vital Signs 10/23/17 10/23/17 10/23/17 06:04 06:30 09:18 Temperature 97.2 F L 96.5 F L Pulse Rate 65 67 Respiratory 18 18 18 Rate Blood Pressure 150/91 147/92 Laboratory Tests 10/21/17 10/22/17 10/22/17 23:19 07:30 07:30 WBC 5.9 RBC 4.31 Hgb 12.1 Hct 36.9 MCV 85.6 MCH 28.1 MCHC 32.9 RDW 15.0 Plt Count 235 MPV 8.7 Sodium 141 Potassium 3.8 Chloride 107 Carbon Dioxide 29 Anion Gap 5 L BUN 10 Creatinine 0.9 Creat Clearance w eGFR > 60 Random Glucose 93 Calcium 8.3 L Total Bilirubin 0.3 D AST 21 ALT 11 L Alkaline Phosphatase 64 Total Protein 7.1 Albumin 3.0 L Urine Color Ltyellow Urine Appearance Clear Urine pH 6.0 Ur Specific [place] 1.009 Urine Protein Negative Urine Glucose (UA) Negative Urine Ketones Negative Urine Blood Negative Urine Nitrite Negative Urine Bilirubin Negative Urine Urobilinogen Negative Ur Leukocyte Esterase Negative RPR Titer 10/22/17 07:30 WBC RBC Hgb Hct MCV MCH MCHC RDW Plt Count MPV Sodium Potassium Chloride Carbon Dioxide Anion Gap BUN Creatinine Creat Clearance w eGFR Random Glucose Calcium Total Bilirubin AST ALT Alkaline Phosphatase Total Protein Albumin Urine Color Urine Appearance Urine pH Ur Specific [place] Urine Protein Urine Glucose (UA) Urine Ketones Urine Blood Urine Nitrite Urine Bilirubin Urine Urobilinogen Ur Leukocyte Esterase RPR Titer Nonreactive Assessment: 10/23/17 11:42 WITHDRAWAL SX Plan: CONTINUE DETOX INCREASE PO FLUIDS
[2017-10-23] MEDS ORDERED: cloNIDine HCL 0.1 MG TABLET PO ONE (13:45)
[2017-10-23] MEDS: THIAMINE HCL 100 MG TABLET (FP) PO SCH (22:30)
[2017-10-23] MEDS: LATANOPROST 0.005% OPHTH SOLN 2.5ML BOTTLE OS SCH (22:30)
[2017-10-23] MEDS: chlordiazePOXIDE 5 MG CAPSULE PO SCH (22:30)
[2017-10-24] MEDS: chlordiazePOXIDE 5 MG CAPSULE PO SCH ×3 (06:36→17:44)
[2017-10-24] MEDS: LISINOPRIL 20 MG TABLET (FP) PO SCH (10:20)
[2017-10-24] MEDS: METHADONE HCL 5 MG TABLET (FOR DETOX USE ONLY) PO SCH (10:20)
[2017-10-24] MEDS: PRENATAL VITAMINS W/ FOLIC ACID TABLET (FP) PO SCH (10:20)
[2017-10-24] MEDS: NICOTINE 14 MG/24 HOURS TOPICAL PATCH TD SCH (10:20)
--- NOTE | 2017-10-24 11:03 | PN ---
[facility] Progress Note (SOAP) Subjective: PT REPORTS SWEATS,BACK PAIN.ANXIETY. Objective: 10/24/17 11:02 Vital Signs 10/24/17 10/24/17 10/24/17 03:30 07:36 09:33 Temperature 97.9 F 97.1 F L Pulse Rate 65 76 Respiratory 18 19 18 Rate Blood Pressure 139/91 126/79 Laboratory Tests 10/21/17 10/22/17 10/22/17 23:19 07:30 07:30 WBC 5.9 RBC 4.31 Hgb 12.1 Hct 36.9 MCV 85.6 MCH 28.1 MCHC 32.9 RDW 15.0 Plt Count 235 MPV 8.7 Sodium 141 Potassium 3.8 Chloride 107 Carbon Dioxide 29 Anion Gap 5 L BUN 10 Creatinine 0.9 Creat Clearance w eGFR > 60 Random Glucose 93 Calcium 8.3 L Total Bilirubin 0.3 D AST 21 ALT 11 L Alkaline Phosphatase 64 Total Protein 7.1 Albumin 3.0 L Urine Color Ltyellow Urine Appearance Clear Urine pH 6.0 Ur Specific [place] 1.009 Urine Protein Negative Urine Glucose (UA) Negative Urine Ketones Negative Urine Blood Negative Urine Nitrite Negative Urine Bilirubin Negative Urine Urobilinogen Negative Ur Leukocyte Esterase Negative RPR Titer 10/22/17 07:30 WBC RBC Hgb Hct MCV MCH MCHC RDW Plt Count MPV Sodium Potassium Chloride Carbon Dioxide Anion Gap BUN Creatinine Creat Clearance w eGFR Random Glucose Calcium Total Bilirubin AST ALT Alkaline Phosphatase Total Protein Albumin Urine Color Urine Appearance Urine pH Ur Specific [place] Urine Protein Urine Glucose (UA) Urine Ketones Urine Blood Urine Nitrite Urine Bilirubin Urine Urobilinogen Ur Leukocyte Esterase RPR Titer Nonreactive Assessment: 10/24/17 11:02 WITHDRAWAL SX Plan: CONTINUE DETOX MOTRIN PRN
[2017-10-24] MEDS: MELATONIN 5 MG TABLETS PO PRN (22:20)
[2017-10-24] MEDS: chlordiazePOXIDE HCL 10 MG CAPSULE PO SCH (22:20)
[2017-10-24] MEDS: THIAMINE HCL 100 MG TABLET (FP) PO SCH (22:20)
[2017-10-24] MEDS: LATANOPROST 0.005% OPHTH SOLN 2.5ML BOTTLE OS SCH (22:22)
[2017-10-25] MEDS: chlordiazePOXIDE HCL 10 MG CAPSULE PO SCH ×3 (05:48→17:16)
[2017-10-25] MEDS ORDERED: METHADONE HCL 10 MG TABLET (FOR DETOX USE ONLY) PO SCH (10:00)
[2017-10-25] MEDS: PRENATAL VITAMINS W/ FOLIC ACID TABLET (FP) PO SCH (10:39)
[2017-10-25] MEDS: NICOTINE 14 MG/24 HOURS TOPICAL PATCH TD SCH (10:39)
[2017-10-25] MEDS: LISINOPRIL 20 MG TABLET (FP) PO SCH (10:39)
--- NOTE | 2017-10-25 13:19 | PN ---
[facility] Progress Note (SOAP) Subjective: Sweating, Fatigue, Body Aches, Stomach Cramping. Objective: PATIENT A & O X 3. NO ACUTE DISTRESS. 10/25/17 13:16 Vital Signs Temperature 98.0 F 10/25/17 09:25 Pulse Rate 69 10/25/17 09:25 Respiratory Rate 18 10/25/17 09:25 Blood Pressure 142/83 10/25/17 09:25 O2 Sat by Pulse Oximetry (%) Laboratory Tests 10/21/17 10/22/17 10/22/17 23:19 07:30 07:30 WBC 5.9 RBC 4.31 Hgb 12.1 Hct 36.9 MCV 85.6 MCH 28.1 MCHC 32.9 RDW 15.0 Plt Count 235 MPV 8.7 Sodium 141 Potassium 3.8 Chloride 107 Carbon Dioxide 29 Anion Gap 5 L BUN 10 Creatinine 0.9 Creat Clearance w eGFR > 60 Random Glucose 93 Calcium 8.3 L Total Bilirubin 0.3 D AST 21 ALT 11 L Alkaline Phosphatase 64 Total Protein 7.1 Albumin 3.0 L Urine Color Ltyellow Urine Appearance Clear Urine pH 6.0 Ur Specific [place] 1.009 Urine Protein Negative Urine Glucose (UA) Negative Urine Ketones Negative Urine Blood Negative Urine Nitrite Negative Urine Bilirubin Negative Urine Urobilinogen Negative Ur Leukocyte Esterase Negative RPR Titer 10/22/17 07:30 WBC RBC Hgb Hct MCV MCH MCHC RDW Plt Count MPV Sodium Potassium Chloride Carbon Dioxide Anion Gap BUN Creatinine Creat Clearance w eGFR Random Glucose Calcium Total Bilirubin AST ALT Alkaline Phosphatase Total Protein Albumin Urine Color Urine Appearance Urine pH Ur Specific [place] Urine Protein Urine Glucose (UA) Urine Ketones Urine Blood Urine Nitrite Urine Bilirubin Urine Urobilinogen Ur Leukocyte Esterase RPR Titer Nonreactive LABS NOTED. Assessment: 10/25/17 13:17 WITHDRAWAL SYMPTOMS. HYPERTENSION. 10/25/17 13:18 Plan: CONTINUE DETOX. PATIENT SCHEDULED FOR D/C TOMORROW.
[2017-10-25] MEDS: MELATONIN 5 MG TABLETS PO PRN (22:10)
[2017-10-25] MEDS: LATANOPROST 0.005% OPHTH SOLN 2.5ML BOTTLE OS SCH (22:10)
[2017-10-25] MEDS: THIAMINE HCL 100 MG TABLET (FP) PO SCH (22:10)
[2017-10-26] MEDS ORDERED: METHADONE HCL 5 MG TABLET (FOR DETOX USE ONLY) PO SCH (06:00)
[2017-10-26 06:44] VITALS: BP 128/79; PULSE 71; TEMP 97.4
[2017-10-26] MEDS: LISINOPRIL 20 MG TABLET (FP) PO SCH (09:06)
[2017-10-26] MEDS: PRENATAL VITAMINS W/ FOLIC ACID TABLET (FP) PO SCH (09:06)
--- NOTE | 2017-10-26 13:18 | PN ---
[facility] Progress Note (SOAP) Subjective: Patient denies current Detox symptoms and reports that he feels well overall. Objective: PATIENT A & O X 3, OBSERVED AMBULATING ON UNIT. NO ACUTE DISTRESS. 10/26/17 13:17 Vital Signs Temperature 97.4 F L 10/26/17 06:43 Pulse Rate 71 10/26/17 06:43 Respiratory Rate 18 10/26/17 06:43 Blood Pressure 128/79 10/26/17 06:43 O2 Sat by Pulse Oximetry (%) Laboratory Tests 10/21/17 10/22/17 10/22/17 23:19 07:30 07:30 WBC 5.9 RBC 4.31 Hgb 12.1 Hct 36.9 MCV 85.6 MCH 28.1 MCHC 32.9 RDW 15.0 Plt Count 235 MPV 8.7 Sodium 141 Potassium 3.8 Chloride 107 Carbon Dioxide 29 Anion Gap 5 L BUN 10 Creatinine 0.9 Creat Clearance w eGFR > 60 Random Glucose 93 Calcium 8.3 L Total Bilirubin 0.3 D AST 21 ALT 11 L Alkaline Phosphatase 64 Total Protein 7.1 Albumin 3.0 L Urine Color Ltyellow Urine Appearance Clear Urine pH 6.0 Ur Specific [place] 1.009 Urine Protein Negative Urine Glucose (UA) Negative Urine Ketones Negative Urine Blood Negative Urine Nitrite Negative Urine Bilirubin Negative Urine Urobilinogen Negative Ur Leukocyte Esterase Negative RPR Titer 10/22/17 07:30 WBC RBC Hgb Hct MCV MCH MCHC RDW Plt Count MPV Sodium Potassium Chloride Carbon Dioxide Anion Gap BUN Creatinine Creat Clearance w eGFR Random Glucose Calcium Total Bilirubin AST ALT Alkaline Phosphatase Total Protein Albumin Urine Color Urine Appearance Urine pH Ur Specific [place] Urine Protein Urine Glucose (UA) Urine Ketones Urine Blood Urine Nitrite Urine Bilirubin Urine Urobilinogen Ur Leukocyte Esterase RPR Titer Nonreactive LABS NOTED. Assessment: 10/26/17 13:17 COMPLETION OF DETOX REGIMEN. Plan: PATIENT SCHEDULED FOR DISCHARGE FROM DETOX UNIT TODAY.
--- NOTE | 2017-10-26 13:24 | DS ---
[facility] Detox Discharge Summary Admission Date: 10/21/17 Discharge Date: 10/26/17 - History Present History: Alcohol Dependence, Opioid Dependence Additional Comments: PATIENT RETURNING TO [facility] ([place] FOR AFTERCARE. 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 Abi HANSON ([facility] AFTER DISCHARGE FROM DETOX UNIT FOR HISTORY OF HTN AND OF GLAUCOMA. PATIENT WAS DISCHARGED FROM DETOX UNIT IN STABLE MEDICAL CONDITION. Pertinent Past History: Nicotine Dependence, HIV, HTN, Glaucoma, Depression. - Physical Exam Results Vital Signs: Vital Signs Temperature 97.4 F L 10/26/17 06:43 Pulse Rate 71 10/26/17 06:43 Respiratory Rate 18 10/26/17 06:43 Blood Pressure 128/79 10/26/17 06:43 O2 Sat by Pulse Oximetry (%) Pertinent Admission Physical Exam Findings: WITHDRAWAL SYMPTOMS. Laboratory Tests 10/21/17 10/22/17 10/22/17 23:19 07:30 07:30 WBC 5.9 RBC 4.31 Hgb 12.1 Hct 36.9 MCV 85.6 MCH 28.1 MCHC 32.9 RDW 15.0 Plt Count 235 MPV 8.7 Sodium 141 Potassium 3.8 Chloride 107 Carbon Dioxide 29 Anion Gap 5 L BUN 10 Creatinine 0.9 Creat Clearance w eGFR > 60 Random Glucose 93 Calcium 8.3 L Total Bilirubin 0.3 D AST 21 ALT 11 L Alkaline Phosphatase 64 Total Protein 7.1 Albumin 3.0 L Urine Color Ltyellow Urine Appearance Clear Urine pH 6.0 Ur Specific [place] 1.009 Urine Protein Negative Urine Glucose (UA) Negative Urine Ketones Negative Urine Blood Negative Urine Nitrite Negative Urine Bilirubin Negative Urine Urobilinogen Negative Ur Leukocyte Esterase Negative RPR Titer 10/22/17 07:30 WBC RBC Hgb Hct MCV MCH MCHC RDW Plt Count MPV Sodium Potassium Chloride Carbon Dioxide Anion Gap BUN Creatinine Creat Clearance w eGFR Random Glucose Calcium Total Bilirubin AST ALT Alkaline Phosphatase Total Protein Albumin Urine Color Urine Appearance Urine pH Ur Specific [place] Urine Protein Urine Glucose (UA) Urine Ketones Urine Blood Urine Nitrite Urine Bilirubin Urine Urobilinogen Ur Leukocyte Esterase RPR Titer Nonreactive LABS NOTED. - Treatment Hospital Course: Detox Protocol Followed, Detoxed Safely, Responded well, Discharged Condition Good Patient has Accepted a Rehab Referral to: PT RETURNING TO [facility] ([place] 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 (4) Glaucoma Status: Chronic Qualifiers: Glaucoma type: other Laterality: bilateral Qualified Code(s): H40.89 - Other specified glaucoma (5) HIV (human immunodeficiency virus infection) Status: Chronic (6) Hypertension Status: Chronic Qualifiers: Hypertension type: essential hypertension Qualified Code(s): I10 - Essential (primary) hypertension (7) Nicotine dependence Status: Acute Qualifiers: Nicotine product type: cigarettes Substance use status: in withdrawal Qualified Code(s): F17.213 - Nicotine dependence, cigarettes, with withdrawal (8) Substance induced mood disorder Status: Acute - AMA Did Patient Leave Against Medical Advice: No
== END 2017-10-26 09:10 | disposition home or self-care (01) | DRG 773 ==
LOC: YASAS 13:22 → Y3N 18:43
PROVIDERS: ADMIT Internal Medicine; ATTEND Internal Medicine
PROC: HZ2ZZZZ Detoxification Services for Substance Abuse Treatment (ICD-10-PCS; principal; 2017-10-21)
DX: F11.23 Opioid dependence with withdrawal (principal); F10.230 Alcohol dependence with withdrawal, uncomplicated; F17.213 Nicotine dependence, cigarettes, with withdrawal; F34.1 Dysthymic disorder; F19.24 Other psychoactive substance dependence with psychoactive substance-induced mood disorder; I10 Essential (primary) hypertension; Z21 Asymptomatic human immunodeficiency virus [HIV] infection status; H40.89 Other specified glaucoma; R01.1 Cardiac murmur, unspecified; Z91.14 Patient's other noncompliance with medication regimen; Z87.438 Personal history of other diseases of male genital organs
CPT/HCPCS: 36415; 80053; 81003; 85027; 86593; 93005; 93010; J0735

== ENCOUNTER 2018-01-25 12:09 | Inpatient (IN) | payer OTHER ==
[2018-01-25 12:32] VITALS: BMI 28.1
--- NOTE | 2018-01-25 15:50 | HP ---
"COWS - Scale Resting Pulse: 0= [place] 80 or Below Sweatin= Chills/Flushing Restless Observation: 3= Extraneous Movement Pupil Size: 2= Moderately Dilated Bone or Joint Aches: 4=Acute Joint/Muscle Pain Runny Nose/ Eye Tearin= None GI Upset > 30mins: 2= Nausea/Diarrhea Tremor Observation: 1= Tremor [place], Not Seen Yawning Observation: 2= >3x During Session Anxiety or Irritability: 1=Feels Anxious/Irritable Goose Flesh Skin: 0=Smooth Skin COWS Score: 16 CIWA Score - CIWA Score Nausea/Vomitin Muscle Tremors: 1-None Visible, but [place] Anxiety: 4-Mod. Anxious/Guarded Agitation: 3 Paroxysmal Sweats: 1-Minimal Palms Moist Orientation: 0-Oriented Tacttile Disturbances: 0-None Auditory Disturbances: 0-None Visual Disturbances: 0-None Headache: 0-None Present CIWA-Ar Total Score: 12 Admission ROS BHS - HPI Chief Complaint: HEROIN AND ALCOHOL WITHDRAWAL SX Allergies/Adverse Reactions: Allergies Allergy/AdvReac Type Severity Reaction Status Date / Time No Known Allergies Allergy Verified 01/25/18 13:51 History of Present Illness: 52 Y/O AA/MALE WITH A HX OF HEROIN AND ALCOHOL DEPENDENCE SEEKING DETOX TX. PT HAS PREVIOUS TREATMENT EPISODES. PT REPORTS HX OF CHRONIC BACK PAIN AND RESTARTED ENDOCET AFTER 5 MONTHS FREE. LAST TAKEN 2 DAYS AGO. PT STATES HE WANTS DETOX FOR EVERYTHING. Confidential Drug Utilization Report Search Terms: adis philippe, 1965 Search Date: 01/25/2018 04:13:14 PM The Drug Utilization Report below displays all of the controlled substance prescriptions, if any, that your patient has filled in the last twelve months. The information displayed on this report is compiled from pharmacy submissions to the Department, and accurately reflects the information as submitted by the pharmacies. This report was requested by: Mago Rondon | Reference #: [id number] You have not added a REGLA number. Keeping your REGLA number(s) up to date on the My REGLA Numbers page will enable the separation of your prescriptions from others ' in the search results. Others' Prescriptions Patient Name: Adis Philippe Date: 1965 Address: [address] [place] [address] Sex: Male Rx Written Rx Dispensed Drug Quantity Days Supply Prescriber Name 01/21/2018 01/21/2018 zolpidem tartrate 10 mg tablet 30 30 Nunu, [facility] 01/12/2018 01/12/2018 endocet 10-325 mg tablet 60 30 Laura Auguste 11/25/2017 12/24/2017 zolpidem tartrate 10 mg tablet 30 30 Kwapong, [place] 11/25/2017 11/25/2017 zolpidem tartrate 10 mg tablet 30 30 Kwapong, [place] 09/10/2017 10/28/2017 zolpidem tartrate 10 mg tablet 30 30 Kwapong, [place] 09/10/2017 09/30/2017 zolpidem tartrate 10 mg tablet 30 30 Kwapong, [place] 08/19/2017 09/02/2017 zolpidem tartrate 10 mg tablet 30 30 Nunu, [facility] 07/08/2017 08/04/2017 zolpidem tartrate 10 mg tablet 30 30 Kwapong, [place] 07/08/2017 07/08/2017 zolpidem tartrate 10 mg tablet 30 30 Kwapong, [place] 06/27/2017 06/30/2017 endocet 10-325 mg tablet 30 30 PetrRosas phan MD 06/05/2017 06/05/2017 zolpidem tartrate 10 mg tablet 30 30 Kwapong, [place] 06/02/2017 06/02/2017 endocet 10-325 mg tablet 30 30 PetrychenRosas curry MD 05/08/2017 05/08/2017 zolpidem tartrate 10 mg tablet 30 30 Kwapong, [place] 04/30/2017 04/30/2017 endocet 10-325 mg tablet 30 30 Pura Gaytan 04/02/2017 04/02/2017 zolpidem tartrate 10 mg tablet 30 30 Kwapong, [place] 03/26/2017 03/27/2017 endocet 10-325 mg tablet 40 30 Pura Gaytan 02/20/2017 03/03/2017 zolpidem tartrate 10 mg tablet 30 30 Kwapong, [place] 02/27/2017 02/27/2017 endocet 10-325 mg tablet 50 30 Pura Gaytan 02/05/2017 02/05/2017 zolpidem tartrate 5 mg tablet 30 30 Jeremy Thrasher 01/29/2017 01/30/2017 endocet 10-325 mg tablet 58 30 Pura Gaytan * - Drugs marked with an asterisk are compound drugs. If the compound drug is made up of more than one controlled substance, then each controlled substance will be a separate row in the table. Exam Limitations: No Limitations - Ebola screening Have you traveled outside of the country in the last 21 days: No (N) Have you had contact with anyone from an Ebola affected area: No Have you been sick,other than usual withdrawal symptoms: No Do you have a fever: No - Review of Systems Constitutional: Chills, Night Sweats, Changes in sleep (ON AMBIEN) EENT: reports: Dental Problems (MISSING TEETH), Other (HX GLAUCOMA BOTH EYES) Respiratory: reports: Shortness of Breath (HX ASTHMA), Wheezing GI: reports: Nausea, Poor Fluid Intake, Vomiting : reports: No Symptoms Reported Musculoskeletal: reports: Back Pain, Joint Pain, Muscle Pain Integumentary: reports: No Symptoms Reported Neuro: reports: Tremors Endocrine: reports: No Symptoms Reported Hematology: reports: Anemia Psychiatric: reports: Orientated x3, Anxious, Depressed Other Systems: Reviewed and Negative Patient History - Patient Medical History Hx Anemia: Yes (NO MEDS) Hx Asthma: Yes (MDI) Hx Chronic Obstructive Pulmonary Disease (COPD): No Hx Cancer: No Hx Cardiac Disorders: No Hx Congestive Heart Failure: No Hx Hypertension: Yes (NONCOMPLIANT WITH MED) Hx Hypercholesterolemia: No Hx Pacemaker: No HX Cerebrovascular Accident: No Hx Seizures: No Hx Dementia: No Hx Diabetes: No Hx Gastrointestinal Disorders: No Hx Liver Disease: No Hx Genitourinary Disorders: No Hx Sexually Transmitted Disorders: Yes (Hx of gonnorhea WITH TX) Hx Renal Disease (ESRD): No Hx Thyroid Disease: No Hx Human Immunodeficiency Virus (HIV): Yes (SINCE 2002 ON MED ) Hx Hepatitis C: No Hx Depression: Yes Hx Suicide Attempt: No (DENIES S/I) Hx Bipolar Disorder: No Hx Schizophrenia: No - Patient Surgical History Past Surgical History: No Hx Neurologic Surgery: No Hx Cataract Extraction: No Hx Cardiac Surgery: No Hx Lung Surgery: No Hx Breast Surgery: No Hx Breast Biopsy: No Hx Abdominal Surgery: No Hx Appendectomy: No Hx Cholecystectomy: No Hx Genitourinary Surgery: No Hx Orthopedic Surgery: No Anesthesia Reaction: No - PPD History Previous Implant?: Yes Documented Results: Negative w/proof Implanted On Prior [facility] Admission?: Yes Date: 07/31/17 Results: NEGATIVE PPD to be Administered?: No - Reproductive History Patient is a Female of Child Bearing Age (11 -55 yrs old): No (MALE) - Smoking Cessation Smoking history: Current every day smoker Have you smoked in the past 12 months: Yes Aproximately how many cigarettes per day: 10 Hx Chewing Tobacco Use: No Initiated information on smoking cessation: Yes 'Breaking Loose' booklet given: 01/25/18 - Substance & Tx. History Hx Alcohol Use: Yes (BEER) Hx Substance Use: Yes (HEROIN) Substance Use Type: Alcohol, Heroin Hx Substance Use Treatment: Yes (LAST TX AT [facility]) - Substances Abused Alcohol Route: Oral Frequency: Daily Amount used: 2 6 PACK OF BEER (16 OUNCES) Age of first use: 13 Date of Last Use: 01/25/18 Heroin Route: Inhalation Frequency: Daily Amount used: 5 BAGS Age of first use: 48 Date of Last Use: 01/25/18 Family Disease History - Family Disease History Family Disease History: Diabetes: Brother, Other: Father (ALCOHOL) Admission Physical Exam S - Vital Signs Vital Signs: Vital Signs - 24 hr 01/25/18 12:30 Temperature 98.6 F Pulse Rate 76 Respiratory 21 Rate Blood Pressure 150/92 - Physical General Appearance: Yes: Moderate Distress, Irritable, Anxious HEENTM: Yes: EOMI, Normocephalic, ANDREA, Pharynx Normal Respiratory: Yes: Chest Non-Tender, Lungs Clear, Normal Breath Sounds Neck: Yes: No masses,lesions,Nodules, Supple, Trachea in good position Breast: Yes: Breast Exam Deferred Cardiology: Yes: Regular Rhythm, Regular Rate, S1, S2 Abdominal: Yes: Normal Bowel Sounds, Non Tender, Soft Genitourinary: Yes: Other (N/C) Back: Yes: Within Normal Limits Musculoskeletal: Yes: full range of Motion, Gait Steady Extremities: Yes: Normal Range of Motion, Non-Tender Integumentary: Yes: Dry, Warm Lymphatic: Yes: Within Normal Limits - Diagnostic (1) Alcohol dependence with uncomplicated withdrawal Current Visit: Yes Status: Acute (2) Glaucoma Current Visit: Yes Status: Chronic Qualifiers: Glaucoma type: other Laterality: bilateral Qualified Code(s): H40.89 - Other specified glaucoma Comment: patient states that he has glaucoma x 6 months last eye drop a month ago unable to remember the name of the medication wait for home med list from pharmacy (3) Hypertension Current Visit: Yes Status: Chronic Qualifiers: Hypertension type: essential hypertension Qualified Code(s): I10 - Essential (primary) hypertension Comment: lisinopril (4) HIV (human immunodeficiency virus infection) Current Visit: Yes Status: Chronic Comment: nomn-adherent with medications, unable to recall current antivirals taking (5) Opioid dependence with withdrawal Current Visit: Yes Status: Acute (6) Insomnia Current Visit: Yes Status: Chronic Qualifiers: Insomnia type: unspecified Qualified Code(s): G47.00 - Insomnia, unspecified Comment: Moderate. (7) Nicotine dependence Current Visit: Yes Status: Acute Qualifiers: Nicotine product type: cigarettes Substance use status: in withdrawal Qualified Code(s): F17.213 - Nicotine dependence, cigarettes, with withdrawal Cleared for Admission [facility] - Detox or Rehab [facility] Level of Care: Medically Managed Detox Regimen/Protocol: Methadone/Librium [facility] Breath Alcohol Content Breath Alcohol Content: 0 Urine Drug Screen - Results Drug Screen Negative: No Urine Drug Screen Results: ESVIN-Cocaine, OPI-Opiates"
[2018-01-25] MEDS ORDERED: ACETAMINOPHEN 325 MG TABLET (FP) PO PRN (16:34)
[2018-01-25] MEDS ORDERED: LOPERAMIDE HCL 2 MG CAPSULE PO PRN (16:34)
[2018-01-25] MEDS ORDERED: P-EPHED 60MG/TRIPROLIDI 2.5MG TABLET PO PRN (16:34)
[2018-01-25] MEDS ORDERED: IBUPROFEN 400 MG TABLET (FP) PO PRN (16:34)
[2018-01-25] MEDS ORDERED: MAGNESIUM HYDROX 2400MG/30ML ORAL SUSPENSION 30 ML CUP PO PRN (16:34)
[2018-01-25] MEDS ORDERED: guaiFENesin/D-METHORPHAN HB 10 ML UNIT-DOSE CUPS PO PRN (16:34)
[2018-01-25] MEDS ORDERED: MAGNESIUM CITRATE 300 ML BOTTLE PO PRN (16:34)
[2018-01-25] MEDS ORDERED: MENTHOL/PHENOL 1 EACH UD MM PRN (16:34)
[2018-01-25] MEDS ORDERED: MAG HYDROX/AL HYDROX/SIMETH 30 ML UNIT-DOSE CUP PO PRN (16:34)
[2018-01-25] MEDS ORDERED: NICOTINE POLACRILEX 2 MG GUM BC PRN (16:34)
[2018-01-25] MEDS ORDERED: chlordiazePOXIDE HCL 25 MG CAPSULE PO PRN (16:34)
[2018-01-25] MEDS ORDERED: METHADONE HCL 10 MG TABLET (FOR DETOX USE ONLY) PO ONE ×2 (20:00→23:00)
[2018-01-25] MEDS: NICOTINE 14 MG/24 HOURS TOPICAL PATCH TD SCH (20:27)
[2018-01-25] MEDS: LISINOPRIL 10 MG TABLET (FP) PO SCH (20:27)
[2018-01-25] MEDS ORDERED: LATANOPROST 0.005% OPHTH SOLN 2.5ML BOTTLE OS SCH (22:00)
[2018-01-25] MEDS ORDERED: MELATONIN 5 MG TABLETS PO PRN (22:00)
[2018-01-25 22:17] LABS: URINE APPEARANCE CLEAR; URINE BILIRUBIN NEGATIVE (<2.0 mg/dL); URINE COLOR YELLOW; URINE GLUCOSE (UA) NEGATIVE (NEGATIVE); URINE KETONE NEGATIVE (NEGATIVE); URINE LEUK ESTERASE NEGATIVE (NEGATIVE); URINE NITRITE NEGATIVE (NEGATIVE); URINE PROTEIN NEGATIVE (NEGATIVE); URINE UROBILINOGEN NEGATIVE mg/dL (0.2-1.0)
[2018-01-25] MEDS: LATANOPROST 0.005% OPHTH SOLN 2.5ML BOTTLE OU SCH (22:37)
[2018-01-25] MEDS: THIAMINE HCL 100 MG TABLET (FP) PO SCH (22:37)
[2018-01-25] MEDS: chlordiazePOXIDE HCL 25 MG CAPSULE PO SCH (22:38)
[2018-01-26] MEDS: chlordiazePOXIDE HCL 25 MG CAPSULE PO SCH ×4 (06:13→22:24)
--- NOTE | 2018-01-26 09:17 | CONSULT ---
[facility] Psychiatric Consult - Data Date of interview: 01/26/18 Admission source: [facility] Identifying data: Patient is a 52 year old single male, without kids, domiciled , and unemployed (denies receiving financial assistance). This is one of multiple admissions for patient. Pt. admitted to for alcohol dependence. Substance Abuse History: Smoking Cessation. Smoking history: Current every day smoker. Have you smoked in the past 12 months: Yes. Aproximately how many cigarettes per day: 10. Hx Chewing Tobacco Use: No. Initiated information on smoking cessation: Yes. 'Breaking Loose' booklet given: 01/25/18. - Substance & Tx. History. Hx Alcohol Use: Yes (BEER). Hx Substance Use: Yes (HEROIN). Substance Use Type: Alcohol, Heroin. Hx Substance Use Treatment: Yes (LAST TX AT [facility]). - Substances Abused. Alcohol. Route: Oral. Frequency: Daily. Amount used: 2 6 PACK OF BEER (16 OUNCES). Age of first use: 13. Date of Last Use: 01/25/18. Heroin. Route: Inhalation. Frequency: Daily. Amount used: 5 BAGS. Age of first use: 48. Date of Last Use: 01/25/18 Medical History: Anemia, Asthma, hypertension, HIV Psychiatric History: Patient unable to provide a cohesive psychiatric history. Outpatient psychiatric services is provided by the [facility]. Pt. unsure of his medication regime, only able to state that he takes ambien but is unsure of the dose. Pharmacy claims reviewed and noted that patient is currently prescribed wellbutrin 300mg XL + Risperdal 1mg + ambien 10mg. Pt. reports noncompliance to wellbutrin and risperdal. Patient reports partial adherence to ambien. Pt. agreeable to accepting wellbutrin 150m XL. Patient denies h/o suicide attempt. Physical/Sexual Abuse/Trauma History: denies Mental Status Exam - Mental Status Exam Alert and Oriented to: Time, Place, Person Cognitive Function: Good Patient Appearance: Well Groomed Mood: Withdrawn, Euthymic Affect: Mood Congruent Patient Behavior: Guarded, Cooperative Speech Pattern: Appropriate Voice Loudness: Moderately Soft/Quiet Thought Process: Goal Oriented Thought Disorder: Not Present Hallucinations: Denies Suicidal Ideation: Denies Homicidal Ideation: Denies Insight/Judgement: Poor Sleep: Poorly Appetite: Fair Muscle strength/Tone: Normal Gait/Station: Normal Psychiatric Findings - Problem List (Wever 1, 2,3) (1) Alcohol dependence with uncomplicated withdrawal Current Visit: Yes Status: Acute (2) Nicotine dependence Current Visit: Yes Status: Chronic Qualifiers: Nicotine product type: cigarettes Substance use status: in withdrawal Qualified Code(s): F17.213 - Nicotine dependence, cigarettes, with withdrawal (3) Opioid dependence with withdrawal Current Visit: Yes Status: Acute (4) Insomnia Current Visit: Yes Status: Chronic Qualifiers: Insomnia type: unspecified Qualified Code(s): G47.00 - Insomnia, unspecified Comment: Moderate. (5) Schizoaffective disorder Current Visit: Yes Status: Suspected - Initial Treatment Plan Initial Treatment Plan: Psychoeducation provided. Detoxification in progress. Will order Wellbutrin 150mg Xl + ambien 10mg. Pt refusing to accept risperdal. Benefits and side effects discussed. Verbal consent given.
[2018-01-26 09:51] LABS: HEMATOCRIT 36.1 % (35.4-49); HEMOGLOBIN 11.7 GM/dL (11.7-16.9); MCH 27.8 pg (25.7-33.7); MCHC 32.5 g/dl (32.0-35.9); MEAN CELL VOLUME 85.6 fl (80-96); MEAN PLT VOLUME 8.6 fl (7.5-11.1); PLATELET COUNT 219 K/MM3 (134-434); RBC 4.22 M/mm3 (4.00-5.60); RDW 14.8 % (11.9-15.9); WHITE BLOOD COUNT 5.2 K/mm3 (4.0-10.0)
[2018-01-26 09:56] LABS: ALBUMIN 2.8 g/dl (3.4-5.0); ANION GAP 9 MMOL/L (8-16); BILIRUBIN,TOTAL 0.2 mg/dL (0.2-1.0); BLOOD UREA NITROGEN 12 mg/dL (7-18); CALCIUM 8.5 mg/dL (8.5-10.1); CHLORIDE 106 mmol/L (98-107); CO2 27 mmol/L (21-32); CREATININE 0.8 mg/dL (0.7-1.3); GLUCOSE,RANDOM 87 mg/dL (74-106); POTASSIUM 3.5 mmol/L (3.5-5.1); SGOT/AST 25 U/L (15-37); SGPT/ALT 14 U/L (12-78); SODIUM 142 mmol/L (136-145); TOT PROT 6.7 g/dl (6.4-8.2)
[2018-01-26 09:57] LABS: ALK PHOS 61 U/L (45-117)
[2018-01-26] MEDS ORDERED: METHADONE HCL 10 MG TABLET (FOR DETOX USE ONLY) PO SCH (10:00)
[2018-01-26] MEDS: PRENATAL VITAMINS W/ FOLIC ACID TABLET (FP) PO SCH (10:06)
[2018-01-26] MEDS: NICOTINE 14 MG/24 HOURS TOPICAL PATCH TD SCH (10:08)
[2018-01-26] MEDS: LISINOPRIL 10 MG TABLET (FP) PO SCH (10:08)
--- NOTE | 2018-01-26 10:41 | PN ---
S CIWA - CIWA Score Nausea/Vomitin-No Nausea/No Vomiting Muscle Tremors: 4-Moderate,w/Arms Extend Anxiety: 4-Mod. Anxious/Guarded Agitation: 4-Moderately Restless Paroxysmal Sweats: 1-Minimal Palms Moist Orientation: 0-Oriented Tacttile Disturbances: 0-None Auditory Disturbances: 0-None Visual Disturbances: 0-None Headache: 0-None Present CIWA-Ar Total Score: 13 BHS COWS - Scale Resting Pulse: 0= [place] 80 or Below Sweatin= Chills/Flushing Restless Observation: 3= Extraneous Movement Pupil Size: 0= Normal to Room Light Bone or Joint Aches: 4=Acute Joint/Muscle Pain Runny Nose/ Eye Tearin= Nasal Congestion GI Upset > 30mins: 0= None Tremor Observation of Outstretched Hands: 2= Slight Tremor Visible Yawning Observation: 1= 1-2x During Session Anxiety or Irritability: 2=Irritable/Anxious Goose Flesh Skin: 0=Smooth Skin COWS Score: 14 S Progress Note (SOAP) Subjective: ANXIETY,SWEATS,TREMORS,INTERMITTENT SLEEP. Objective: 01/26/18 10:54 Vital Signs 01/26/18 01/26/18 01/26/18 03:30 06:02 09:06 Temperature 99.0 F 97.4 F L Pulse Rate 54 L 62 Respiratory 18 18 18 Rate Blood Pressure 133/79 151/86 Laboratory Tests 01/25/18 01/26/18 01/26/18 16:52 07:30 07:30 WBC 5.2 RBC 4.22 Hgb 11.7 Hct 36.1 MCV 85.6 MCH 27.8 MCHC 32.5 RDW 14.8 Plt Count 219 MPV 8.6 Sodium 142 Potassium 3.5 Chloride 106 Carbon Dioxide 27 Anion Gap 9 BUN 12 Creatinine 0.8 Creat Clearance w eGFR > 60 Random Glucose 87 Calcium 8.5 Total Bilirubin 0.2 AST 25 ALT 14 Alkaline Phosphatase 61 Total Protein 6.7 Albumin 2.8 L Urine Color Yellow Urine Appearance Clear Urine pH 7.0 Ur Specific [place] 1.014 Urine Protein Negative Urine Glucose (UA) Negative Urine Ketones Negative Urine Blood Negative Urine Nitrite Negative Urine Bilirubin Negative Urine Urobilinogen Negative Ur Leukocyte Esterase Negative Assessment: 01/26/18 10:54 WITHDRAWAL SX Plan: CONTINUE DETOX
--- NOTE | 2018-01-26 14:17 | EKG ---
Test Reason : Blood Pressure : / mmHG Vent. Rate : 060 BPM Atrial Rate : 060 BPM P-R Int : 166 ms QRS Dur : 086 ms QT Int : 438 ms P-R-T Axes : 049 025 040 degrees QTc Int : 438 ms NORMAL SINUS RHYTHM MODERATE VOLTAGE CRITERIA FOR LVH, MAY BE NORMAL VARIANT BORDERLINE ECG WHEN COMPARED WITH ECG OF 28-NOV-2017 23:43, COMPARED TO EKG NO SIGNIFICANT CHANGE IS FOUND Confirmed by DEVON LEUNG MD ([id number]) on 01/26/2018 2:17:30 PM Referred By: Confirmed By:DEVON LEUNG MD
[2018-01-26] MEDS ORDERED: ZOLPIDEM TARTRATE 10 MG TABLET (PARK CARE ONLY) PO PRN (22:00)
[2018-01-26] MEDS: LATANOPROST 0.005% OPHTH SOLN 2.5ML BOTTLE OU SCH (22:23)
[2018-01-26] MEDS: THIAMINE HCL 100 MG TABLET (FP) PO SCH (22:24)
[2018-01-27] MEDS: chlordiazePOXIDE HCL 25 MG CAPSULE PO SCH ×3 (06:09→17:39)
[2018-01-27] MEDS ORDERED: TRIMETHOBENZAMIDE HCL 200MG/2ML INJ IM ONE ×2 (09:31→17:45)
--- NOTE | 2018-01-27 10:33 | PN ---
S CIWA - CIWA Score Nausea/Vomitin (N/V) Muscle Tremors: 4-Moderate,w/Arms Extend Anxiety: 4-Mod. Anxious/Guarded Agitation: 2 Paroxysmal Sweats: No Perspiration Orientation: 0-Oriented Tacttile Disturbances: 0-None Auditory Disturbances: 0-None Visual Disturbances: 0-None Headache: 0-None Present CIWA-Ar Total Score: 15 BHS COWS - Scale Resting Pulse: 0= [place] 80 or Below Sweatin= Chills/Flushing Restless Observation: 3= Extraneous Movement Pupil Size: 2= Moderately Dilated Bone or Joint Aches: 1= Mild Discomfort Runny Nose/ Eye Tearin= Nasal Congestion GI Upset > 30mins: 3= Vomiting/Diarrhea (N/V) Tremor Observation of Outstretched Hands: 2= Slight Tremor Visible Yawning Observation: 0= None Anxiety or Irritability: 1=Feels Anxious/Irritable Goose Flesh Skin: 0=Smooth Skin COWS Score: 14 S Progress Note (SOAP) Subjective: ANXIETY,NAUSEA,VOMITING,SWEATS/CHILLS,FATIGUE Objective: 01/27/18 10:31 Vital Signs 01/27/18 01/27/18 01/27/18 03:44 05:53 09:37 Temperature 97.6 F 98.4 F Pulse Rate 53 L 64 Respiratory 18 20 18 Rate Blood Pressure 100/43 180/112 Laboratory Tests 01/25/18 01/26/18 01/26/18 16:52 07:30 07:30 WBC 5.2 RBC 4.22 Hgb 11.7 Hct 36.1 MCV 85.6 MCH 27.8 MCHC 32.5 RDW 14.8 Plt Count 219 MPV 8.6 Sodium 142 Potassium 3.5 Chloride 106 Carbon Dioxide 27 Anion Gap 9 BUN 12 Creatinine 0.8 Creat Clearance w eGFR > 60 Random Glucose 87 Calcium 8.5 Total Bilirubin 0.2 AST 25 ALT 14 Alkaline Phosphatase 61 Total Protein 6.7 Albumin 2.8 L Urine Color Yellow Urine Appearance Clear Urine pH 7.0 Ur Specific [place] 1.014 Urine Protein Negative Urine Glucose (UA) Negative Urine Ketones Negative Urine Blood Negative Urine Nitrite Negative Urine Bilirubin Negative Urine Urobilinogen Negative Ur Leukocyte Esterase Negative RPR Titer 01/26/18 07:30 WBC RBC Hgb Hct MCV MCH MCHC RDW Plt Count MPV Sodium Potassium Chloride Carbon Dioxide Anion Gap BUN Creatinine Creat Clearance w eGFR Random Glucose Calcium Total Bilirubin AST ALT Alkaline Phosphatase Total Protein Albumin Urine Color Urine Appearance Urine pH Ur Specific [place] Urine Protein Urine Glucose (UA) Urine Ketones Urine Blood Urine Nitrite Urine Bilirubin Urine Urobilinogen Ur Leukocyte Esterase RPR Titer Nonreactive Assessment: 01/27/18 10:32 WITHDRAWAL SX Plan: CONTINUE DETOX
[2018-01-27] MEDS: ONDANSETRON *ODT* 4 MG TABLET SL PRN ×3 (11:10→22:44)
[2018-01-27] MEDS: LISINOPRIL 10 MG TABLET (FP) PO SCH (12:03)
[2018-01-27] MEDS: PRENATAL VITAMINS W/ FOLIC ACID TABLET (FP) PO SCH (13:47)
[2018-01-27] MEDS: NICOTINE 14 MG/24 HOURS TOPICAL PATCH TD SCH (13:48)
[2018-01-27] MEDS: METHADONE HCL 5 MG TABLET (FOR DETOX USE ONLY) PO SCH (13:56)
[2018-01-27] MEDS ORDERED: METHADONE DETOX 10 MG/1 ML [20ML VIAL] IM ONE (14:00)
--- NOTE | 2018-01-27 17:31 | PN ---
[facility] Progress Note Note: Notified by RN patient vomited throughout the day. Received one dose of Tigan IM 200mg with some relief. After a few hours, patient began vomiting again. Will repeat Tigan 200mg IM x one and continue to monitor clinically. Vital Signs Temperature 98.8 F 01/27/18 17:18 Pulse Rate 57 L 01/27/18 17:18 Respiratory Rate 18 01/27/18 17:18 Blood Pressure 141/86 01/27/18 17:18 O2 Sat by Pulse Oximetry (%)
--- NOTE | 2018-01-27 20:13 | PN ---
S Progress Note Note: Vital Signs Temperature 98.1 F 01/27/18 20:09 Pulse Rate 62 01/27/18 20:09 Respiratory Rate 18 01/27/18 17:18 Blood Pressure 171/104 01/27/18 20:09 O2 Sat by Pulse Oximetry (%) alcohol withdrawal sx patient with elevated BP one time dose of clonidine 0.2 mg fluids as tolerated repeat v/s continue to monitor
[2018-01-27] MEDS ORDERED: cloNIDine HCL 0.1 MG TABLET PO ONE (20:30)
[2018-01-27] MEDS: LATANOPROST 0.005% OPHTH SOLN 2.5ML BOTTLE OU SCH (22:19)
[2018-01-27] MEDS: THIAMINE HCL 100 MG TABLET (FP) PO SCH (22:20)
[2018-01-27] MEDS ORDERED: hydrOXYzine PAMOATE 50 MG CAPSULE (FP) PO PRN (23:07)
[2018-01-27] MEDS: chlordiazePOXIDE 5 MG CAPSULE PO SCH (23:30)
[2018-01-28] MEDS: chlordiazePOXIDE 5 MG CAPSULE PO SCH ×3 (06:07→18:29)
[2018-01-28] MEDS ORDERED: TRIMETHOBENZAMIDE HCL 200MG/2ML INJ IM PRN (10:31)
--- NOTE | 2018-01-28 10:42 | PN ---
BHS Progress Note (SOAP) Subjective: PT IS STILL C/O ANXIETY,ACTIVE NAUSEA AND VOMITING, TREMORS,SWEATS/CHILLS FATIGUE. Objective: 01/28/18 10:41 Vital Signs 01/28/18 01/28/18 01/28/18 03:22 06:17 09:16 Temperature 98.7 F 99.7 F H Pulse Rate 52 L 59 L Respiratory 18 18 18 Rate Blood Pressure 141/78 158/89 Laboratory Tests 01/25/18 01/26/18 01/26/18 16:52 07:30 07:30 WBC 5.2 RBC 4.22 Hgb 11.7 Hct 36.1 MCV 85.6 MCH 27.8 MCHC 32.5 RDW 14.8 Plt Count 219 MPV 8.6 Sodium 142 Potassium 3.5 Chloride 106 Carbon Dioxide 27 Anion Gap 9 BUN 12 Creatinine 0.8 Creat Clearance w eGFR > 60 Random Glucose 87 Calcium 8.5 Total Bilirubin 0.2 AST 25 ALT 14 Alkaline Phosphatase 61 Total Protein 6.7 Albumin 2.8 L Urine Color Yellow Urine Appearance Clear Urine pH 7.0 Ur Specific [place] 1.014 Urine Protein Negative Urine Glucose (UA) Negative Urine Ketones Negative Urine Blood Negative Urine Nitrite Negative Urine Bilirubin Negative Urine Urobilinogen Negative Ur Leukocyte Esterase Negative RPR Titer 01/26/18 07:30 WBC RBC Hgb Hct MCV MCH MCHC RDW Plt Count MPV Sodium Potassium Chloride Carbon Dioxide Anion Gap BUN Creatinine Creat Clearance w eGFR Random Glucose Calcium Total Bilirubin AST ALT Alkaline Phosphatase Total Protein Albumin Urine Color Urine Appearance Urine pH Ur Specific [place] Urine Protein Urine Glucose (UA) Urine Ketones Urine Blood Urine Nitrite Urine Bilirubin Urine Urobilinogen Ur Leukocyte Esterase RPR Titer Nonreactive Assessment: 01/28/18 10:41 WITHDRAWAL SX Plan: COTNINUE DETOX METHADONE 7.5 MG IM X ONE DOSE DIRECTED. ENCOURAGE PO FLUIDS GINGERALE TOLERATED
[2018-01-28] MEDS ORDERED: METHADONE DETOX 10 MG/1 ML [20ML VIAL] IM ONE (11:15)
[2018-01-28] MEDS: METHADONE HCL 5 MG TABLET (FOR DETOX USE ONLY) PO SCH (11:42)
[2018-01-28] MEDS: PRENATAL VITAMINS W/ FOLIC ACID TABLET (FP) PO SCH (11:42)
[2018-01-28] MEDS: NICOTINE 14 MG/24 HOURS TOPICAL PATCH TD SCH (11:42)
[2018-01-28] MEDS: LISINOPRIL 10 MG TABLET (FP) PO SCH (12:36)
[2018-01-28] MEDS: cloNIDine HCL 0.1 MG TABLET PO SCH ×2 (12:36→22:49)
[2018-01-28] MEDS: THIAMINE HCL 100 MG TABLET (FP) PO SCH (22:49)
[2018-01-28] MEDS: LATANOPROST 0.005% OPHTH SOLN 2.5ML BOTTLE OU SCH (22:49)
[2018-01-28] MEDS: chlordiazePOXIDE HCL 10 MG CAPSULE PO SCH (22:50)
[2018-01-29] MEDS: chlordiazePOXIDE HCL 10 MG CAPSULE PO SCH ×3 (07:49→17:54)
[2018-01-29] MEDS ORDERED: METHADONE HCL 10 MG TABLET (FOR DETOX USE ONLY) PO SCH (10:00)
[2018-01-29] MEDS: LISINOPRIL 10 MG TABLET (FP) PO SCH (10:26)
[2018-01-29] MEDS: cloNIDine HCL 0.1 MG TABLET PO SCH ×2 (10:26→22:30)
[2018-01-29] MEDS: PRENATAL VITAMINS W/ FOLIC ACID TABLET (FP) PO SCH (10:26)
[2018-01-29] MEDS: NICOTINE 14 MG/24 HOURS TOPICAL PATCH TD SCH (10:27)
--- NOTE | 2018-01-29 12:07 | PN ---
[facility] Progress Note (SOAP) Subjective: PT REPORTS HE FEELS MUCH BETTER. N/V RESOLVED X 24 HRS. ALERT O X 3. OOB AMBULATING WITH STEADY GAIT. Objective: 01/29/18 12:07 Vital Signs 01/29/18 01/29/18 01/29/18 06:19 06:30 10:16 Temperature 97.9 F 97.6 F Pulse Rate 67 66 Respiratory 18 18 18 Rate Blood Pressure 132/84 171/101 Laboratory Tests 01/25/18 01/26/18 01/26/18 16:52 07:30 07:30 WBC 5.2 RBC 4.22 Hgb 11.7 Hct 36.1 MCV 85.6 MCH 27.8 MCHC 32.5 RDW 14.8 Plt Count 219 MPV 8.6 Sodium 142 Potassium 3.5 Chloride 106 Carbon Dioxide 27 Anion Gap 9 BUN 12 Creatinine 0.8 Creat Clearance w eGFR > 60 Random Glucose 87 Calcium 8.5 Total Bilirubin 0.2 AST 25 ALT 14 Alkaline Phosphatase 61 Total Protein 6.7 Albumin 2.8 L Urine Color Yellow Urine Appearance Clear Urine pH 7.0 Ur Specific [place] 1.014 Urine Protein Negative Urine Glucose (UA) Negative Urine Ketones Negative Urine Blood Negative Urine Nitrite Negative Urine Bilirubin Negative Urine Urobilinogen Negative Ur Leukocyte Esterase Negative RPR Titer 01/26/18 07:30 WBC RBC Hgb Hct MCV MCH MCHC RDW Plt Count MPV Sodium Potassium Chloride Carbon Dioxide Anion Gap BUN Creatinine Creat Clearance w eGFR Random Glucose Calcium Total Bilirubin AST ALT Alkaline Phosphatase Total Protein Albumin Urine Color Urine Appearance Urine pH Ur Specific [place] Urine Protein Urine Glucose (UA) Urine Ketones Urine Blood Urine Nitrite Urine Bilirubin Urine Urobilinogen Ur Leukocyte Esterase RPR Titer Nonreactive Assessment: 01/29/18 12:07 WITHDRAWAL SX Plan: CONTINUE DETOX
[2018-01-29] MEDS: THIAMINE HCL 100 MG TABLET (FP) PO SCH (22:29)
[2018-01-29] MEDS: LATANOPROST 0.005% OPHTH SOLN 2.5ML BOTTLE OU SCH (22:30)
[2018-01-30] MEDS ORDERED: METHADONE HCL 5 MG TABLET (FOR DETOX USE ONLY) PO SCH (06:00)
[2018-01-30 06:23] VITALS: BP 116/71; PULSE 65; TEMP 97.5
[2018-01-30] MEDS: ONDANSETRON *ODT* 4 MG TABLET SL PRN (07:59)
--- NOTE | 2018-01-30 12:46 | PN ---
B[facility] Progress Note (SOAP) Subjective: DETOX COMPLETED. ALERT O X 3. NAD. PT REPORTS HE HAS PMD DR. MG AT [facility] IN [facility]. REPORTS HAS OWN MEDS AT HOME. Objective: 01/30/18 12:46 Vital Signs 01/30/18 06:22 Temperature 97.5 F L Pulse Rate 65 Respiratory 18 Rate Blood Pressure 116/71 Laboratory Tests 01/25/18 01/26/18 01/26/18 16:52 07:30 07:30 WBC 5.2 RBC 4.22 Hgb 11.7 Hct 36.1 MCV 85.6 MCH 27.8 MCHC 32.5 RDW 14.8 Plt Count 219 MPV 8.6 Sodium 142 Potassium 3.5 Chloride 106 Carbon Dioxide 27 Anion Gap 9 BUN 12 Creatinine 0.8 Creat Clearance w eGFR > 60 Random Glucose 87 Calcium 8.5 Total Bilirubin 0.2 AST 25 ALT 14 Alkaline Phosphatase 61 Total Protein 6.7 Albumin 2.8 L Urine Color Yellow Urine Appearance Clear Urine pH 7.0 Ur Specific [place] 1.014 Urine Protein Negative Urine Glucose (UA) Negative Urine Ketones Negative Urine Blood Negative Urine Nitrite Negative Urine Bilirubin Negative Urine Urobilinogen Negative Ur Leukocyte Esterase Negative RPR Titer 01/26/18 07:30 WBC RBC Hgb Hct MCV MCH MCHC RDW Plt Count MPV Sodium Potassium Chloride Carbon Dioxide Anion Gap BUN Creatinine Creat Clearance w eGFR Random Glucose Calcium Total Bilirubin AST ALT Alkaline Phosphatase Total Protein Albumin Urine Color Urine Appearance Urine pH Ur Specific [place] Urine Protein Urine Glucose (UA) Urine Ketones Urine Blood Urine Nitrite Urine Bilirubin Urine Urobilinogen Ur Leukocyte Esterase RPR Titer Nonreactive Assessment: 01/30/18 12:46 MEDICALLY STABLE Plan: D/C PT TODAY
--- NOTE | 2018-01-30 12:48 | DS ---
[facility] Detox Discharge Summary Admission Date: 01/25/18 Discharge Date: 01/30/18 - History Present History: Alcohol Dependence, Opioid Dependence Additional Comments: DETOX COMPLETED. Pertinent Past History: PLEASE SEE DX BELOW - Physical Exam Results Vital Signs: Vital Signs Temperature 97.5 F L 01/30/18 06:22 Pulse Rate 65 01/30/18 06:22 Respiratory Rate 18 01/30/18 06:22 Blood Pressure 116/71 01/30/18 06:22 O2 Sat by Pulse Oximetry (%) Pertinent Admission Physical Exam Findings: WITHDRAWAL SX Laboratory Tests 01/25/18 01/26/18 01/26/18 16:52 07:30 07:30 WBC 5.2 RBC 4.22 Hgb 11.7 Hct 36.1 MCV 85.6 MCH 27.8 MCHC 32.5 RDW 14.8 Plt Count 219 MPV 8.6 Sodium 142 Potassium 3.5 Chloride 106 Carbon Dioxide 27 Anion Gap 9 BUN 12 Creatinine 0.8 Creat Clearance w eGFR > 60 Random Glucose 87 Calcium 8.5 Total Bilirubin 0.2 AST 25 ALT 14 Alkaline Phosphatase 61 Total Protein 6.7 Albumin 2.8 L Urine Color Yellow Urine Appearance Clear Urine pH 7.0 Ur Specific [place] 1.014 Urine Protein Negative Urine Glucose (UA) Negative Urine Ketones Negative Urine Blood Negative Urine Nitrite Negative Urine Bilirubin Negative Urine Urobilinogen Negative Ur Leukocyte Esterase Negative RPR Titer 01/26/18 07:30 WBC RBC Hgb Hct MCV MCH MCHC RDW Plt Count MPV Sodium Potassium Chloride Carbon Dioxide Anion Gap BUN Creatinine Creat Clearance w eGFR Random Glucose Calcium Total Bilirubin AST ALT Alkaline Phosphatase Total Protein Albumin Urine Color Urine Appearance Urine pH Ur Specific [place] Urine Protein Urine Glucose (UA) Urine Ketones Urine Blood Urine Nitrite Urine Bilirubin Urine Urobilinogen Ur Leukocyte Esterase RPR Titer Nonreactive - Treatment Hospital Course: Detox Protocol Followed - Medication Discharge Medications: Ambulatory Orders Latanoprost 0.005% Eye Drops [Xalatan 0.005% Eye Drops -] 1 drop OS HS #1 drops 12/03/17 Lisinopril 10 mg PO DAILY 01/25/18 Bupropion HCl [Wellbutrin Xl] 150 mg PO DAILY 01/26/18 Zolpidem Tartrate [Ambien] 10 mg PO HS 01/26/18 - Diagnosis (1) Alcohol dependence with uncomplicated withdrawal Status: Acute (2) Glaucoma Status: Chronic Qualifiers: Glaucoma type: other Laterality: bilateral Qualified Code(s): H40.89 - Other specified glaucoma (3) Hypertension Status: Chronic Qualifiers: Hypertension type: essential hypertension Qualified Code(s): I10 - Essential (primary) hypertension (4) HIV (human immunodeficiency virus infection) Status: Chronic (5) Opioid dependence with withdrawal Status: Acute (6) Insomnia Status: Chronic Qualifiers: Insomnia type: unspecified Qualified Code(s): G47.00 - Insomnia, unspecified (7) Nicotine dependence Status: Chronic Qualifiers: Nicotine product type: cigarettes Substance use status: in withdrawal Qualified Code(s): F17.213 - Nicotine dependence, cigarettes, with withdrawal (8) Nausea & vomiting Status: Acute Qualifiers: Vomiting type: unspecified Vomiting Intractability: unspecified Qualified Code(s): R11.2 - Nausea with vomiting, unspecified - AMA Did Patient Leave Against Medical Advice: No
== END 2018-01-30 08:40 | disposition home or self-care (01) | DRG 773 ==
LOC: YASAS 12:09 → Y3N 19:21
PROC: HZ2ZZZZ Detoxification Services for Substance Abuse Treatment (ICD-10-PCS; principal; 2018-01-25)
DX: F11.23 Opioid dependence with withdrawal (principal); F10.230 Alcohol dependence with withdrawal, uncomplicated; F17.213 Nicotine dependence, cigarettes, with withdrawal; F25.9 Schizoaffective disorder, unspecified; F32.9 Major depressive disorder, single episode, unspecified; Z21 Asymptomatic human immunodeficiency virus [HIV] infection status; I10 Essential (primary) hypertension; Z91.14 Patient's other noncompliance with medication regimen; R11.2 Nausea with vomiting, unspecified; H40.89 Other specified glaucoma; D64.9 Anemia, unspecified; J45.909 Unspecified asthma, uncomplicated; Z86.19 Personal history of other infectious and parasitic diseases
CPT/HCPCS: 36415; 80053; 81003; 85027; 86593; 93005; 93010; J0735; Q0162

== ENCOUNTER 2018-05-01 15:18 | Inpatient (IN) | payer OTHER ==
[2018-05-01 17:10] VITALS: BMI 25.5
--- NOTE | 2018-05-01 20:15 | HP ---
COWS - Scale Resting Pulse: 1= [place] 81-100 Sweatin= Beads of Sweat on Face Restless Observation: 1= Difficult to Sit Still Pupil Size: 2= Moderately Dilated (Pupils = 6 mm) Bone or Joint Aches: 1= Mild Discomfort (back pain) Runny Nose/ Eye Tearin= Nasal Congestion GI Upset > 30mins: 2= Nausea/Diarrhea Tremor Observation: 2= Slight Tremor Visible Yawning Observation: 0= None Anxiety or Irritability: 1=Feels Anxious/Irritable Goose Flesh Skin: 0=Smooth Skin COWS Score: 14 CIWA Score Nausea/Vomitin Muscle Tremors: 4-Moderate,w/Arms Extend Anxiety: 1-Mildly Anxious Agitation: 1-Slight > Activity Paroxysmal Sweats: 4-Forehead w/Sweat Beads Orientation: 0-Oriented Tacttile Disturbances: 0-None Auditory Disturbances: 0-None Visual Disturbances: 0-None Headache: 0-None Present CIWA-Ar Total Score: 13 - Admission Criteria OAS Guidelines: Admission for Medically Managed Detox: Requires at least one of the followin. CIWA greater than 12 2. Seizures within the past 24 hours 3. Delirium tremens within the past 24 hours 4. Hallucinations within the past 24 hours 5. Acute intervention needed for co occurring medical disorder 6. Acute intervention needed for co occurring psychiatric disorder 7. Severe withdrawal that cannot be handled at a lower level of care (continued vomiting, continued diarrhea, abnormal vital signs) requiring intravenous medication and/or fluids 8. Patient presents the following: CIWA greater than 12 Admission Criteria Met: Admission criteria met Admission ROS [facility] Chief Complaint: Heroin and alcohol withdrawal. Allergies/Adverse Reactions: Allergies Allergy/AdvReac Type Severity Reaction Status Date / Time No Known Allergies Allergy Verified 01/25/18 13:51 History of Present Illness: Alcohol use began at age 13. Nicotine use began at age 19. Heroin use began at age 50. Denies hx seizures, blackouts, overdoses. Longest length of sobriety 1-2 weeks. States takes eye drops for glaucoma. Hx: HTN Patient Name: Adis Patel Date: 1965 Address: [address] [place] [address] Sex: Male Rx Written Rx Dispensed Drug Quantity Days Supply Prescriber Name 04/20/2018 04/20/2018 zolpidem tartrate 10 mg tablet 30 30 Nunu, Romeeda 04/01/2018 04/02/2018 oxycodone hcl 5 mg tablet 14 7 Auguste, Laura A 03/20/2018 03/23/2018 zolpidem tartrate 10 mg tablet 30 30 Nunu, Romeeda 02/23/2018 02/23/2018 zolpidem tartrate 10 mg tablet 30 30 Nunu, Volborgeda 01/30/2018 02/09/2018 endocet 10-325 mg tablet 60 30 Auguste, Laura A 01/21/2018 01/21/2018 zolpidem tartrate 10 mg tablet 30 30 Nunu, Volborgeda 01/12/2018 01/12/2018 endocet 10-325 mg tablet 60 30 Auguste, Laura A 11/25/2017 12/24/2017 zolpidem tartrate 10 mg tablet 30 30 Kwapong, Tom 11/25/2017 11/25/2017 zolpidem tartrate 10 mg tablet 30 30 Kwapong, Tom 09/10/2017 10/28/2017 zolpidem tartrate 10 mg tablet 30 30 Kwapong, Tom 09/10/2017 09/30/2017 zolpidem tartrate 10 mg tablet 30 30 Kwapong, Tom 08/19/2017 09/02/2017 zolpidem tartrate 10 mg tablet 30 30 Nunu, Volborgeda 07/08/2017 08/04/2017 zolpidem tartrate 10 mg tablet 30 30 Kwapong, Tom 07/08/2017 07/08/2017 zolpidem tartrate 10 mg tablet 30 30 Kwapong, Tom 06/27/2017 06/30/2017 endocet 10-325 mg tablet 30 30 PetrRosas phan MD 06/05/2017 06/05/2017 zolpidem tartrate 10 mg tablet 30 30 Kwapong, Tom 06/02/2017 06/02/2017 endocet 10-325 mg tablet 30 30 Rosas Arechiga MD 05/08/2017 05/08/2017 zolpidem tartrate 10 mg tablet 30 30 Kwapong, Tom Exam Limitations: No Limitations - Ebola screening Have you traveled outside of the country in the last 21 days: No Have you had contact with anyone from an Ebola affected area: No Have you been sick,other than usual withdrawal symptoms: No Do you have a fever: No - Review of Systems Constitutional: Diaphoresis, Changes in sleep (Difficulty falling asleep) EENT: reports: Blurred Vision Respiratory: reports: No Symptoms reported Cardiac: reports: No Symptoms Reported GI: reports: Diarrhea (brown, soft), Nausea : reports: No Symptoms Reported Musculoskeletal: reports: Back Pain (r/t withdrawal) Integumentary: reports: No Symptoms Reported Neuro: reports: Tremors Endocrine: reports: No Symptoms Reported Hematology: reports: No Symptoms Reported Psychiatric: reports: Judgement Intact, Orientated x3 Patient History - Patient Medical History Hx Anemia: Yes (NO MEDS) Hx Asthma: No Hx Chronic Obstructive Pulmonary Disease (COPD): No Hx Cancer: No Hx Cardiac Disorders: No Hx Congestive Heart Failure: No Hx Hypertension: Yes Hx Hypercholesterolemia: No Hx Pacemaker: No HX Cerebrovascular Accident: No Hx Seizures: No Hx Dementia: No Hx Diabetes: No Hx Gastrointestinal Disorders: No Hx Liver Disease: No Hx Genitourinary Disorders: No Hx Sexually Transmitted Disorders: Yes (gonorrhea) Hx Renal Disease (ESRD): No Hx Thyroid Disease: No Hx Human Immunodeficiency Virus (HIV): Yes (SINCE 2002 ON MED ) Hx Hepatitis C: No Hx Depression: Yes Hx Suicide Attempt: No Hx Bipolar Disorder: No Hx Schizophrenia: No - Patient Surgical History Past Surgical History: No Hx Neurologic Surgery: No Hx Cataract Extraction: No Hx Cardiac Surgery: No Hx Lung Surgery: No Hx Breast Surgery: No Hx Breast Biopsy: No Hx Abdominal Surgery: No Hx Appendectomy: No Hx Cholecystectomy: No Hx Genitourinary Surgery: No Hx Section: No Hx Orthopedic Surgery: No Anesthesia Reaction: No - PPD History Previous Implant?: Yes Documented Results: Negative w/proof Implanted On Prior R Admission?: Yes Date: 07/31/17 Results: 0mm PPD to be Administered?: No - Smoking Cessation Smoking history: Current every day smoker Have you smoked in the past 12 months: Yes Aproximately how many cigarettes per day: 10 Hx Chewing Tobacco Use: No Initiated information on smoking cessation: Yes 'Breaking Loose' booklet given: 05/01/18 - Substance & Tx. History Hx Alcohol Use: Yes Hx Substance Use: Yes Substance Use Type: Alcohol, Heroin Hx Substance Use Treatment: Yes (detox, ) - Substances Abused Heroin Route: sniff Frequency: Daily Amount used: 5 bags/day Age of first use: 50 Date of Last Use: 05/01/18 Alcohol Route: Oral Frequency: Daily Amount used: 12 beer/day Age of first use: 13 Date of Last Use: 05/01/18 Family Disease History - Family Disease History Family Disease History: Diabetes: Brother, Other: Father (ALCOHOL) Admission Physical Exam S - Vital Signs Vital Signs: Vital Signs - 24 hr 05/01/18 17:08 Temperature 95.8 F L Pulse Rate 84 Respiratory 18 Rate Blood Pressure 152/102 H - Physical General Appearance: Yes: Appropriately Dressed, Mild Distress, Tremorous, Sweating, Anxious HEENTM: Yes: EOMI, Hearing grossly Normal, Normocephalic, ANDREA (Pupils = 5 mm), Rhinorrhea Respiratory: Yes: Lungs Clear, Normal Breath Sounds, No Respiratory Distress Neck: Yes: No masses,lesions,Nodules, Supple Breast: Yes: Breast Exam Deferred Cardiology: Yes: Regular Rhythm, Regular Rate, S1, S2 Abdominal: Yes: Flat, Soft, Increased Bowel Sounds Genitourinary: Yes: Within Normal Limits Back: Yes: Normal Inspection Musculoskeletal: Yes: full range of Motion, Gait Steady, Other ((+) tenderness 2 nd toe (L) foot) Extremities: Yes: Normal Capillary Refill, Normal Range of Motion, Tremors 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 intact, Fully Oriented, Alert, Motor Strength 5/5, Normal Mood/Affect Integumentary: Yes: Normal Color, Dry, Warm, Other (dry, flaky skin on feet w/ cracks at toe folds.) Lymphatic: Yes: Within Normal Limits - Diagnostic (1) Tinea pedis Current Visit: Yes Status: Chronic Qualifiers: Laterality: bilateral Qualified Code(s): B35.3 - Tinea pedis (2) Alcohol dependence with uncomplicated withdrawal Current Visit: Yes Status: Acute (3) Opioid dependence with withdrawal Current Visit: Yes Status: Acute (4) Glaucoma Current Visit: No Status: Chronic Qualifiers: Glaucoma type: unspecified Laterality: bilateral Qualified Code(s): H40.9 - Unspecified glaucoma Comment: Patient encouraged to f/u w/ opthamology post-discharge (5) HIV (human immunodeficiency virus infection) Current Visit: No Status: Chronic Comment: nomn-adherent with medications, unable to recall current antivirals taking (6) Hypertension Current Visit: Yes Status: Chronic Qualifiers: Hypertension type: essential hypertension Qualified Code(s): I10 - Essential (primary) hypertension Comment: lisinopril (7) Nicotine dependence Current Visit: Yes Status: Chronic Qualifiers: Nicotine product type: cigarettes Substance use status: in withdrawal Qualified Code(s): F17.213 - Nicotine dependence, cigarettes, with withdrawal Cleared for Admission S - Detox or Rehab [facility] Level of Care: Medically Managed Detox Regimen/Protocol: Methadone/Librium S Breath Alcohol Content Breath Alcohol Content: 0 Urine Drug Screen - Results Drug Screen Negative: No Urine Drug Screen Results: OPI-Opiates
[2018-05-01] MEDS ORDERED: LOPERAMIDE HCL 2 MG CAPSULE PO PRN (21:04)
[2018-05-01] MEDS ORDERED: chlordiazePOXIDE HCL 25 MG CAPSULE PO PRN (21:04)
[2018-05-01] MEDS ORDERED: NICOTINE POLACRILEX 2 MG GUM BC PRN (21:04)
[2018-05-01] MEDS ORDERED: MENTHOL/PHENOL 1 EACH UD MM PRN (21:04)
[2018-05-01] MEDS ORDERED: MAGNESIUM HYDROX 2400MG/30ML ORAL SUSPENSION 30 ML CUP PO PRN (21:04)
[2018-05-01] MEDS ORDERED: IBUPROFEN 400 MG TABLET (FP) PO PRN (21:04)
[2018-05-01] MEDS ORDERED: chlordiazePOXIDE HCL 25 MG CAPSULE PO ONE (21:04)
[2018-05-01] MEDS ORDERED: METHADONE HCL 10 MG TABLET (FOR DETOX USE ONLY) PO ONE ×2 (21:04→23:00)
[2018-05-01] MEDS ORDERED: MAG HYDROX/AL HYDROX/SIMETH 30 ML UNIT-DOSE CUP PO PRN (21:04)
[2018-05-01] MEDS ORDERED: MAGNESIUM CITRATE 300 ML BOTTLE PO PRN (21:04)
[2018-05-01] MEDS ORDERED: ACETAMINOPHEN 325 MG TABLET (FP) PO PRN (21:04)
[2018-05-01] MEDS ORDERED: cloNIDine HCL 0.1 MG TABLET PO ONE (21:07)
[2018-05-02] MEDS: TOLNAFTATE 1% CREAM 15 GM TUBE TP SCH ×3 (00:22→23:36)
[2018-05-02] MEDS: chlordiazePOXIDE HCL 25 MG CAPSULE PO SCH ×5 (00:23→23:36)
[2018-05-02] MEDS: LATANOPROST 0.005% OPHTH SOLN 2.5ML BOTTLE OU SCH ×2 (00:23→23:36)
[2018-05-02] MEDS: THIAMINE HCL 100 MG TABLET (FP) PO SCH ×2 (00:23→23:36)
[2018-05-02 03:51] LABS: URINE APPEARANCE CLEAR; URINE BILIRUBIN NEGATIVE (<2.0 mg/dL); URINE COLOR YELLOW; URINE GLUCOSE (UA) NEGATIVE (NEGATIVE); URINE KETONE NEGATIVE (NEGATIVE); URINE LEUK ESTERASE NEGATIVE (NEGATIVE); URINE NITRITE NEGATIVE (NEGATIVE); URINE PROTEIN NEGATIVE (NEGATIVE); URINE UROBILINOGEN NEGATIVE mg/dL (0.2-1.0)
[2018-05-02] MEDS ORDERED: cloNIDine HCL 0.1 MG TABLET PO ONE (06:51)
--- NOTE | 2018-05-02 06:53 | PN ---
[facility] Progress Note Note: Patient's blood pressure is B/P 169/103. Patient is asymptomatic. Vital Signs Temperature 98.1 F 05/02/18 06:34 Pulse Rate 63 05/02/18 06:34 Respiratory Rate 18 05/02/18 06:34 Blood Pressure 169/103 H 05/02/18 06:34 O2 Sat by Pulse Oximetry (%) Action: Clonidine 0.1mg 1 tablet oral ordered
[2018-05-02] MEDS ORDERED: METHADONE HCL 10 MG TABLET (FOR DETOX USE ONLY) PO SCH (10:00)
--- NOTE | 2018-05-02 10:26 | PN ---
S CIWA - CIWA Score Nausea/Vomitin Muscle Tremors: 2 Anxiety: 2 Agitation: 2 Paroxysmal Sweats: 2 Orientation: 0-Oriented Tacttile Disturbances: 2-Mild Itch/Numbness/Burn Auditory Disturbances: 0-None Visual Disturbances: 0-None Headache: 2-Mild CIWA-Ar Total Score: 14 [facility] COWS - Scale Resting Pulse: 0= [place] 80 or Below Sweatin= Chills/Flushing Restless Observation: 1= Difficult to Sit Still Pupil Size: 0= Normal to Room Light Bone or Joint Aches: 2= Severe Diffuse Aches Runny Nose/ Eye Tearin= Runny Nose/Eyes GI Upset > 30mins: 2= Nausea/Diarrhea Tremor Observation of Outstretched Hands: 2= Slight Tremor Visible Yawning Observation: 0= None Anxiety or Irritability: 1=Feels Anxious/Irritable Goose Flesh Skin: 3=Piloerection COWS Score: 14 S Progress Note (SOAP) Subjective: Sweats, tremors, low back pain, interrupted sleep Objective: 05/02/18 10:24 Vital Signs - 8 hr 05/02/18 05/02/18 05/02/18 03:30 06:34 07:47 Temperature 98.1 F Pulse Rate 63 63 Respiratory 18 18 18 Rate Blood Pressure 169/103 H 144/108 H 05/02/18 09:07 Temperature 98.2 F Pulse Rate 65 Respiratory 16 Rate Blood Pressure 140/84 Laboratory Last Values Urine Color Yellow 05/01/18 23:35 Urine Appearance Clear 05/01/18 23:35 Urine pH 6.0 (5.0-8.0) 05/01/18 23:35 Ur Specific [place] 1.016 (1.010-1.035) 05/01/18 23:35 Urine Protein Negative (NEGATIVE) 05/01/18 23:35 Urine Glucose (UA) Negative (NEGATIVE) 05/01/18 23:35 Urine Ketones Negative (NEGATIVE) 05/01/18 23:35 Urine Blood Negative (NEGATIVE) 05/01/18 23:35 Urine Nitrite Negative (NEGATIVE) 05/01/18 23:35 Urine Bilirubin Negative (<2.0 mg/dL) 05/01/18 23:35 Urine Urobilinogen Negative mg/dL (0.2-1.0) 05/01/18 23:35 Ur Leukocyte Esterase Negative (NEGATIVE) 05/01/18 23:35 Labs pending, UA noted One episode of hypertrension early this morning, clonidine given Assessment: 05/02/18 10:25 Withdrawal sx Plan: Continue detox
[2018-05-02] MEDS: LISINOPRIL 10 MG TABLET (FP) PO SCH (10:46)
[2018-05-02] MEDS: NICOTINE 14 MG/24 HOURS TOPICAL PATCH TD SCH (10:46)
[2018-05-02] MEDS: PRENATAL VITAMINS W/ FOLIC ACID TABLET (FP) PO SCH (10:46)
[2018-05-02 11:11] LABS: HEMATOCRIT 37.9 % (35.4-49); MCH 27.4 pg (25.7-33.7); MCHC 31.6 g/dl (32.0-35.9); MEAN CELL VOLUME 86.7 fl (80-96); MEAN PLT VOLUME 8.8 fl (7.5-11.1); PLATELET COUNT 242 K/MM3 (134-434); RBC 4.37 M/mm3 (4.00-5.60); RDW 14.8 % (11.9-15.9); WHITE BLOOD COUNT 4.8 K/mm3 (4.0-10.0)
[2018-05-02 12:09] LABS: ALBUMIN 3.2 g/dl (3.4-5.0); ALK PHOS 72 U/L (45-117); ANION GAP 9 MMOL/L (8-16); BILIRUBIN,TOTAL 0.6 mg/dL (0.2-1); BLOOD UREA NITROGEN 11 mg/dL (7-18); CALCIUM 8.7 mg/dL (8.5-10.1); CHLORIDE 104 mmol/L (98-107); CO2 26 mmol/L (21-32); CREATININE 0.9 mg/dL (0.55-1.3); GLUCOSE,RANDOM 94 mg/dL (74-106); POTASSIUM 3.8 mmol/L (3.5-5.1); SGOT/AST 21 U/L (15-37); SGPT/ALT 14 U/L (13-61); SODIUM 140 mmol/L (136-145); TOT PROT 7.2 g/dl (6.4-8.2)
[2018-05-03] MEDS: chlordiazePOXIDE HCL 25 MG CAPSULE PO SCH ×3 (06:07→18:17)
--- NOTE | 2018-05-03 09:59 | PN ---
[facility] CIWA - CIWA Score Nausea/Vomitin-Mild Nausea/No Vomiting Muscle Tremors: 4-Moderate,w/Arms Extend Anxiety: 3 Agitation: 3 Paroxysmal Sweats: 1-Minimal Palms Moist Orientation: 0-Oriented Tacttile Disturbances: 0-None Auditory Disturbances: 0-None Visual Disturbances: 0-None Headache: 1-Very Mild CIWA-Ar Total Score: 13 S COWS - Scale Resting Pulse: 0= [place] 80 or Below Sweatin= Chills/Flushing Restless Observation: 0= Sits Still Pupil Size: 0= Normal to Room Light Bone or Joint Aches: 1= Mild Discomfort Runny Nose/ Eye Tearin= None GI Upset > 30mins: 2= Nausea/Diarrhea Tremor Observation of Outstretched Hands: 1= Tremor [place], Not Seen Yawning Observation: 1= 1-2x During Session Anxiety or Irritability: 0= None Goose Flesh Skin: 3=Piloerection COWS Score: 9 [facility] Progress Note (SOAP) Subjective: tremor sweat body aches muscle cramp gi distress Objective: 05/03/18 10:00 Vital Signs Temperature 96.1 F L 05/03/18 06:39 Pulse Rate 62 05/03/18 06:39 Respiratory Rate 18 05/03/18 06:39 Blood Pressure 148/91 05/03/18 06:39 O2 Sat by Pulse Oximetry (%) Laboratory Last Values WBC 4.8 K/mm3 (4.0-10.0) 05/02/18 07:50 RBC 4.37 M/mm3 (4.00-5.60) 05/02/18 07:50 Hgb 12.0 GM/dL (11.7-16.9) 05/02/18 07:50 Hct 37.9 % (35.4-49) 05/02/18 07:50 MCV 86.7 fl (80-96) 05/02/18 07:50 MCH 27.4 pg (25.7-33.7) 05/02/18 07:50 MCHC 31.6 g/dl (32.0-35.9) L 05/02/18 07:50 RDW 14.8 % (11.9-15.9) 05/02/18 07:50 Plt Count 242 K/MM3 (134-434) 05/02/18 07:50 MPV 8.8 fl (7.5-11.1) 05/02/18 07:50 Sodium 140 mmol/L (136-145) 05/02/18 07:50 Potassium 3.8 mmol/L (3.5-5.1) 05/02/18 07:50 Chloride 104 mmol/L (98-107) 05/02/18 07:50 Carbon Dioxide 26 mmol/L (21-32) 05/02/18 07:50 Anion Gap 9 MMOL/L (8-16) 05/02/18 07:50 BUN 11 mg/dL (7-18) 05/02/18 07:50 Creatinine 0.9 mg/dL (0.55-1.3) 05/02/18 07:50 Creat Clearance w eGFR > 60 (>60) 05/02/18 07:50 Random Glucose 94 mg/dL (74-106) 05/02/18 07:50 Calcium 8.7 mg/dL (8.5-10.1) 05/02/18 07:50 Total Bilirubin 0.6 mg/dL (0.2-1) 05/02/18 07:50 AST 21 U/L (15-37) 05/02/18 07:50 ALT 14 U/L (13-61) 05/02/18 07:50 Alkaline Phosphatase 72 U/L (45-117) 05/02/18 07:50 Total Protein 7.2 g/dl (6.4-8.2) 05/02/18 07:50 Albumin 3.2 g/dl (3.4-5.0) L 05/02/18 07:50 Urine Color Yellow 05/01/18 23:35 Urine Appearance Clear 05/01/18 23:35 Urine pH 6.0 (5.0-8.0) 05/01/18 23:35 Ur Specific [place] 1.016 (1.010-1.035) 05/01/18 23:35 Urine Protein Negative (NEGATIVE) 05/01/18 23:35 Urine Glucose (UA) Negative (NEGATIVE) 05/01/18 23:35 Urine Ketones Negative (NEGATIVE) 05/01/18 23:35 Urine Blood Negative (NEGATIVE) 05/01/18 23:35 Urine Nitrite Negative (NEGATIVE) 05/01/18 23:35 Urine Bilirubin Negative (<2.0 mg/dL) 05/01/18 23:35 Urine Urobilinogen Negative mg/dL (0.2-1.0) 05/01/18 23:35 Ur Leukocyte Esterase Negative (NEGATIVE) 05/01/18 23:35 RPR Titer Nonreactive (NONREACTIVE) 05/02/18 07:50 lab noted long history of hypertension treated with lisinopril 05/03/18 10:01 Assessment: 05/03/18 10:01 withdrawal sx hypertension 05/03/18 10:07 hiv Plan: continue detox patient received 30 days supply HIV medication on 04/20/18 encourage the patient to bring in ART for continuity of care
[2018-05-03] MEDS: PRENATAL VITAMINS W/ FOLIC ACID TABLET (FP) PO SCH (10:37)
[2018-05-03] MEDS: LISINOPRIL 10 MG TABLET (FP) PO SCH (10:37)
[2018-05-03] MEDS: METHADONE HCL 5 MG TABLET (FOR DETOX USE ONLY) PO SCH (10:37)
[2018-05-03] MEDS: NICOTINE 14 MG/24 HOURS TOPICAL PATCH TD SCH (10:38)
[2018-05-03] MEDS: TOLNAFTATE 1% CREAM 15 GM TUBE TP SCH ×2 (10:38→22:45)
[2018-05-03] MEDS: amLODIPine BESYLATE 10 MG TABLET (FP) PO SCH (10:38)
[2018-05-03] MEDS: THIAMINE HCL 100 MG TABLET (FP) PO SCH (22:40)
[2018-05-03] MEDS: LATANOPROST 0.005% OPHTH SOLN 2.5ML BOTTLE OU SCH (22:40)
[2018-05-03] MEDS: chlordiazePOXIDE 5 MG CAPSULE PO SCH (23:27)
[2018-05-04] MEDS: chlordiazePOXIDE 5 MG CAPSULE PO SCH ×3 (05:59→17:47)
--- NOTE | 2018-05-04 10:12 | PN ---
[facility] Progress Note (SOAP) Subjective: Diarrhea sweats interrupted sleep Objective: 05/04/18 10:10 Sleeping, arousable to verbal stimuli A & O x 3 In no distress Vital Signs Temperature 98.6 F 05/04/18 09:30 Pulse Rate 73 05/04/18 09:30 Respiratory Rate 18 05/04/18 09:30 Blood Pressure 141/90 05/04/18 09:30 O2 Sat by Pulse Oximetry (%) Laboratory Last Values WBC 4.8 K/mm3 (4.0-10.0) 05/02/18 07:50 RBC 4.37 M/mm3 (4.00-5.60) 05/02/18 07:50 Hgb 12.0 GM/dL (11.7-16.9) 05/02/18 07:50 Hct 37.9 % (35.4-49) 05/02/18 07:50 MCV 86.7 fl (80-96) 05/02/18 07:50 MCH 27.4 pg (25.7-33.7) 05/02/18 07:50 MCHC 31.6 g/dl (32.0-35.9) L 05/02/18 07:50 RDW 14.8 % (11.9-15.9) 05/02/18 07:50 Plt Count 242 K/MM3 (134-434) 05/02/18 07:50 MPV 8.8 fl (7.5-11.1) 05/02/18 07:50 Sodium 140 mmol/L (136-145) 05/02/18 07:50 Potassium 3.8 mmol/L (3.5-5.1) 05/02/18 07:50 Chloride 104 mmol/L (98-107) 05/02/18 07:50 Carbon Dioxide 26 mmol/L (21-32) 05/02/18 07:50 Anion Gap 9 MMOL/L (8-16) 05/02/18 07:50 BUN 11 mg/dL (7-18) 05/02/18 07:50 Creatinine 0.9 mg/dL (0.55-1.3) 05/02/18 07:50 Creat Clearance w eGFR > 60 (>60) 05/02/18 07:50 Random Glucose 94 mg/dL (74-106) 05/02/18 07:50 Calcium 8.7 mg/dL (8.5-10.1) 05/02/18 07:50 Total Bilirubin 0.6 mg/dL (0.2-1) 05/02/18 07:50 AST 21 U/L (15-37) 05/02/18 07:50 ALT 14 U/L (13-61) 05/02/18 07:50 Alkaline Phosphatase 72 U/L (45-117) 05/02/18 07:50 Total Protein 7.2 g/dl (6.4-8.2) 05/02/18 07:50 Albumin 3.2 g/dl (3.4-5.0) L 05/02/18 07:50 Urine Color Yellow 05/01/18 23:35 Urine Appearance Clear 05/01/18 23:35 Urine pH 6.0 (5.0-8.0) 05/01/18 23:35 Ur Specific [place] 1.016 (1.010-1.035) 05/01/18 23:35 Urine Protein Negative (NEGATIVE) 05/01/18 23:35 Urine Glucose (UA) Negative (NEGATIVE) 05/01/18 23:35 Urine Ketones Negative (NEGATIVE) 05/01/18 23:35 Urine Blood Negative (NEGATIVE) 05/01/18 23:35 Urine Nitrite Negative (NEGATIVE) 05/01/18 23:35 Urine Bilirubin Negative (<2.0 mg/dL) 05/01/18 23:35 Urine Urobilinogen Negative mg/dL (0.2-1.0) 05/01/18 23:35 Ur Leukocyte Esterase Negative (NEGATIVE) 05/01/18 23:35 RPR Titer Nonreactive (NONREACTIVE) 05/02/18 07:50 noted Assessment: 05/04/18 10:11 withdrawal sx Plan: continue detox
[2018-05-04] MEDS: amLODIPine BESYLATE 10 MG TABLET (FP) PO SCH (10:26)
[2018-05-04] MEDS: PRENATAL VITAMINS W/ FOLIC ACID TABLET (FP) PO SCH (10:26)
[2018-05-04] MEDS: LISINOPRIL 10 MG TABLET (FP) PO SCH (10:26)
[2018-05-04] MEDS: METHADONE HCL 5 MG TABLET (FOR DETOX USE ONLY) PO SCH (10:27)
[2018-05-04] MEDS: TOLNAFTATE 1% CREAM 15 GM TUBE TP SCH ×2 (10:27→22:52)
[2018-05-04] MEDS: NICOTINE 14 MG/24 HOURS TOPICAL PATCH TD SCH (10:28)
[2018-05-04] MEDS: chlordiazePOXIDE HCL 10 MG CAPSULE PO SCH (22:29)
[2018-05-04] MEDS: THIAMINE HCL 100 MG TABLET (FP) PO SCH (22:29)
[2018-05-04] MEDS: MELATONIN 5 MG TABLETS PO PRN (22:29)
[2018-05-04] MEDS: LATANOPROST 0.005% OPHTH SOLN 2.5ML BOTTLE OU SCH (22:53)
[2018-05-05] MEDS: chlordiazePOXIDE HCL 10 MG CAPSULE PO SCH ×3 (06:00→17:52)
[2018-05-05] MEDS ORDERED: METHADONE HCL 10 MG TABLET (FOR DETOX USE ONLY) PO SCH (10:00)
--- NOTE | 2018-05-05 10:24 | PN ---
[facility] Progress Note (SOAP) Subjective: tired feeling better Objective: 05/05/18 10:23 Vital Signs Temperature 97.2 F L 05/05/18 09:47 Pulse Rate 85 05/05/18 09:47 Respiratory Rate 18 05/05/18 09:47 Blood Pressure 160/85 05/05/18 09:47 O2 Sat by Pulse Oximetry (%) aaox3 ambulating no acute distress Assessment: 05/05/18 10:23 mild withdrawal Plan: continue detox increase fluids d/c in am
[2018-05-05] MEDS: TOLNAFTATE 1% CREAM 15 GM TUBE TP SCH ×2 (11:06→22:23)
[2018-05-05] MEDS: amLODIPine BESYLATE 10 MG TABLET (FP) PO SCH (11:07)
[2018-05-05] MEDS: LISINOPRIL 10 MG TABLET (FP) PO SCH (11:07)
[2018-05-05] MEDS: PRENATAL VITAMINS W/ FOLIC ACID TABLET (FP) PO SCH (11:07)
[2018-05-05] MEDS: NICOTINE 14 MG/24 HOURS TOPICAL PATCH TD SCH (11:07)
[2018-05-05] MEDS: LATANOPROST 0.005% OPHTH SOLN 2.5ML BOTTLE OU SCH (22:22)
[2018-05-05] MEDS: THIAMINE HCL 100 MG TABLET (FP) PO SCH (22:22)
[2018-05-05] MEDS: MELATONIN 5 MG TABLETS PO PRN (22:24)
[2018-05-06] MEDS ORDERED: METHADONE HCL 5 MG TABLET (FOR DETOX USE ONLY) PO SCH (06:00)
[2018-05-06 06:01] VITALS: BP 142/84; PULSE 73; TEMP 97.7
--- NOTE | 2018-05-06 08:38 | DS ---
[facility] Detox Discharge Summary Admission Date: 05/01/18 Discharge Date: 05/06/18 - History Present History: Alcohol Dependence, Opioid Dependence - Physical Exam Results Vital Signs: Vital Signs Temperature 97.7 F 05/06/18 06:00 Pulse Rate 73 05/06/18 06:00 Respiratory Rate 18 05/06/18 06:00 Blood Pressure 142/84 05/06/18 06:00 O2 Sat by Pulse Oximetry (%) - Treatment Hospital Course: Detox Protocol Followed, Detoxed Safely, Responded well, Discharged Condition Good, Rehab Referral Accepted - Medication Discharge Medications: Ambulatory Orders Lisinopril 10 mg PO DAILY 01/25/18 Zolpidem Tartrate [Ambien] 10 mg PO HS 01/26/18 Latanoprost 0.005% Eye Drops [Xalatan 0.005% Eye Drops -] 1 drop OU HS 05/01/18 Abacavir/Dolutegravir/Lamivudi [Triumeq (Non-Formulary)] 1 each PO DAILY Amlodipine Besylate [Norvasc -] 10 mg PO DAILY 05/03/18 Benazepril HCl [Lotensin] 10 mg PO DAILY 05/03/18 - Diagnosis (1) Alcohol dependence with uncomplicated withdrawal Current Visit: Yes Status: Chronic (2) Opioid dependence with withdrawal Current Visit: Yes Status: Chronic (3) Hypertension Current Visit: Yes Status: Chronic Qualifiers: Hypertension type: essential hypertension Qualified Code(s): I10 - Essential (primary) hypertension (4) Nicotine dependence Current Visit: Yes Status: Chronic Qualifiers: Nicotine product type: cigarettes Substance use status: in withdrawal Qualified Code(s): F17.213 - Nicotine dependence, cigarettes, with withdrawal (5) Tinea pedis Current Visit: Yes Status: Chronic Qualifiers: Laterality: bilateral Qualified Code(s): B35.3 - Tinea pedis (6) Nausea & vomiting Current Visit: No Status: Resolved Qualifiers: Vomiting type: unspecified Vomiting Intractability: unspecified Qualified Code(s): R11.2 - Nausea with vomiting, unspecified (7) Substance induced mood disorder Current Visit: No Status: Acute (8) Depression (emotion) Current Visit: No Status: Chronic Qualifiers: Depression Type: dysthymia Qualified Code(s): F34.1 - Dysthymic disorder (9) Glaucoma Current Visit: No Status: Chronic Qualifiers: Glaucoma type: unspecified Laterality: bilateral Qualified Code(s): H40.9 - Unspecified glaucoma (10) HIV (human immunodeficiency virus infection) Current Visit: No Status: Chronic (11) Insomnia Current Visit: No Status: Chronic Qualifiers: Insomnia type: unspecified Qualified Code(s): G47.00 - Insomnia, unspecified (12) Schizoaffective disorder Current Visit: No Status: Suspected - AMA Did Patient Leave Against Medical Advice: No (going home referred to Bx. Alarcon )
== END 2018-05-06 08:58 | disposition home or self-care (01) | DRG 773 ==
LOC: YASAS 15:18 → Y6N 21:43
PROC: HZ2ZZZZ Detoxification Services for Substance Abuse Treatment (ICD-10-PCS; principal; 2018-05-01)
DX: F11.23 Opioid dependence with withdrawal (principal); F10.230 Alcohol dependence with withdrawal, uncomplicated; F17.213 Nicotine dependence, cigarettes, with withdrawal; F25.9 Schizoaffective disorder, unspecified; F34.1 Dysthymic disorder; F19.24 Other psychoactive substance dependence with psychoactive substance-induced mood disorder; Z21 Asymptomatic human immunodeficiency virus [HIV] infection status; I10 Essential (primary) hypertension; R11.2 Nausea with vomiting, unspecified; B35.3 Tinea pedis; G47.00 Insomnia, unspecified; H40.9 Unspecified glaucoma; Z86.19 Personal history of other infectious and parasitic diseases
CPT/HCPCS: 36415; 80053; 81003; 85027; 86593; J0735

== ENCOUNTER 2019-07-12 10:47 | Inpatient (IN) | payer OTHER ==
--- NOTE | 2019-07-12 11:22 | BHS.RME ---
Substance Use & Tx History - Substance Use History Alcohol Substance amount: 1 6 pack beer Frequency of use: Daily Substance route: Oral Date of Last Use: 07/11/19 (midnight) Opiates (Heroin) Substance amount: 1 bundle Frequency of use: Daily Substance route: Inhalation (ex: sniffing or snorting) Date of Last Use: 07/11/19 - Last Treatment Date of last treatment: 2017 Treatment type: Substance Use Disorder (ALIA) Where was last treatment: Detox Physical/Psych/Mental Status - Behavior Eye Contact: Normal - Cooperativeness Cooperativeness: Cooperative - Thinking Thought Processes: Tight, Logical, Goal Directed Thought content: Future oriented - Physical Health Problems Is patient presently having any pain?: No Does patient presently have any injuries (include location): No Does patient currently have a fever: No Is patient : No COWS - Scale Resting Pulse: 1= [place] 81-100 Sweatin= Chills/Flushing Restless Observation: 1= Difficult to Sit Still Bone or Joint Aches: 1= Mild Discomfort Runny Nose/ Eye Tearin= Nasal Congestion GI Upset > 30mins: 0= None Tremor Observation: 1= Tremor [place], Not Seen Yawning Observation: 0= None Anxiety or Irritability: 0= None Goose Flesh Skin: 0=Smooth Skin CIWA Nausea/Vomitin-No Nausea/No Vomiting Muscle Tremors: 1-None Visible, but [place] Anxiety: 3 Agitation: 2 Paroxysmal Sweats: 1-Minimal Palms Moist Orientation: 0-Oriented Tacttile Disturbances: 0-None Auditory Disturbances: 0-None Visual Disturbances: 0-None Headache: 0-None Present (drank last night after midnight 2 beers only) CIWA-Ar Total Score: 7
[2019-07-12 11:47] VITALS: BMI 24.7
--- NOTE | 2019-07-12 12:54 | HP ---
COWS - Scale Resting Pulse: 1= [place] 81-100 Sweatin= Chills/Flushing Restless Observation: 1= Difficult to Sit Still Pupil Size: 2= Moderately Dilated Bone or Joint Aches: 1= Mild Discomfort Runny Nose/ Eye Tearin= Nasal Congestion GI Upset > 30mins: 0= None Tremor Observation: 1= Tremor [place], Not Seen Yawning Observation: 0= None Anxiety or Irritability: 0= None Goose Flesh Skin: 0=Smooth Skin COWS Score: 8 CIWA Score Nausea/Vomitin-No Nausea/No Vomiting Muscle Tremors: 1-None Visible, but [place] Anxiety: 3 Agitation: 2 Paroxysmal Sweats: 1-Minimal Palms Moist Orientation: 0-Oriented Tacttile Disturbances: 0-None Auditory Disturbances: 0-None Visual Disturbances: 0-None Headache: 0-None Present (drank last night after midnight 2 beers only) CIWA-Ar Total Score: 7 - Admission Criteria OASAS Guidelines: Admission for Medically Managed Detox: Requires at least one of the followin. CIWA greater than 12 2. Seizures within the past 24 hours 3. Delirium tremens within the past 24 hours 4. Hallucinations within the past 24 hours 5. Acute intervention needed for co occurring medical disorder 6. Acute intervention needed for co occurring psychiatric disorder 7. Severe withdrawal that cannot be handled at a lower level of care (continued vomiting, continued diarrhea, abnormal vital signs) requiring intravenous medication and/or fluids 8. Admitting History and Physical - Admission Chief Complaint: Mr. Patel is a 53 yo gentleman who presents to [facility] requesting admission for detox from alcohol and heroin. History of Present Illness: Mr. Patel is a 53 yo gentleman who presents to [facility] requesting admission for detox from alcohol and heroin. He was last here in April of 2018 when he completed a detox protocol. PMH: HIV positive on Trimeq/last dose yesterday, HTN, glaucoma, anemia Psych: depression on no meds, no SI/HI Substance use history Alcohol: 2 beers last night, 6 yashira per day each is 16 oz, no hx of black out, no seizures Heroin: first use at the age of 49 y, last use yesterday, snikff, one bundle per day, no OD, No Narcan at home Nictotine: 10 cigs per day Denies: cocaine, benzo, marijuana - Smoking History Smoking history: Current every day smoker Have you smoked in the past 12 months: Yes Aproximately how many cigarettes per day: 10 - Alcohol/Substance Use Hx Alcohol Use: Yes Admission ROS [facility] - [facility] Allergies/Adverse Reactions: Allergies Allergy/AdvReac Type Severity Reaction Status Date / Time No Known Allergies Allergy Verified 07/12/19 11:29 Exam Limitations: No Limitations - Ebola screening Have you traveled outside of the country in the last 21 days: No Have you had contact with anyone from an Ebola affected area: No Have you been sick,other than usual withdrawal symptoms: No Do you have a fever: No - Review of Systems Constitutional: Loss of Appetite, Unintentional Wgt. Loss (one mos, lost 20 lbs) EENT: reports: No Symptoms Reported Respiratory: reports: No Symptoms reported Cardiac: reports: No Symptoms Reported GI: reports: No Symptoms Reported : reports: No Symptoms Reported Integumentary: reports: No Symptoms Reported Neuro: reports: Tremors Endocrine: reports: No Symptoms Reported Hematology: reports: No Symptoms Reported Psychiatric: reports: Anxious Patient History - Patient Medical History Hx Anemia: Yes (NO MEDS) Hx Asthma: No Hx Chronic Obstructive Pulmonary Disease (COPD): No Hx Cancer: No Hx Cardiac Disorders: No Hx Congestive Heart Failure: No Hx Hypertension: Yes Hx Hypercholesterolemia: No Hx Pacemaker: No HX Cerebrovascular Accident: No Hx Seizures: No Hx Dementia: No Hx Diabetes: No Hx Gastrointestinal Disorders: No Hx Liver Disease: No Hx Genitourinary Disorders: No Hx Sexually Transmitted Disorders: No Hx Renal Disease (ESRD): No Hx Thyroid Disease: No Hx Human Immunodeficiency Virus (HIV): Yes (SINCE 2002 ON MED ) Hx Hepatitis C: No Hx Depression: Yes Hx Suicide Attempt: No Hx Bipolar Disorder: No Hx Schizophrenia: No - Patient Surgical History Past Surgical History: No Hx Neurologic Surgery: No Hx Cataract Extraction: No Hx Cardiac Surgery: No Hx Lung Surgery: No Hx Breast Surgery: No Hx Breast Biopsy: No Hx Abdominal Surgery: No Hx Appendectomy: No Hx Cholecystectomy: No Hx Genitourinary Surgery: No Hx Section: No Hx Orthopedic Surgery: No Anesthesia Reaction: No - PPD History Date: 07/31/17 Results: 0mm - Smoking Cessation Smoking history: Current every day smoker Have you smoked in the past 12 months: Yes Aproximately how many cigarettes per day: 10 Hx Chewing Tobacco Use: No Initiated information on smoking cessation: Yes 'Breaking Loose' booklet given: 07/12/19 - Substances abused Heroin Substance route: Inhalation Frequency: Daily Amount used: 1 bundle Age of first use: 49 Date of last use: 07/11/19 Alcohol Substance route: Oral Frequency: Daily Amount used: 6pk beer Age of first use: 13 Date of last use: 07/11/19 Admission Physical Exam [facility] - Vital Signs Vital Signs: Vital Signs - 24 hr 07/12/19 11:29 Temperature 97.4 F L Pulse Rate 96 H Respiratory 20 Rate Blood Pressure 151/95 - Physical General Appearance: Yes: Thin, Anxious HEENTM: Yes: Other (pupils dilated, reactive) Respiratory: Yes: Lungs Clear, Normal Breath Sounds Neck: Yes: Within Normal Limits Breast: Yes: Breast Exam Deferred Cardiology: Yes: Regular Rate, S1, S2 Abdominal: Yes: Normal Bowel Sounds, Non Tender, Flat, Soft Genitourinary: Yes: Other (deferred) Back: Yes: Normal Inspection Musculoskeletal: Yes: Within Normal Limits Extremities: Yes: Within Normal Limits Neurological: Yes: Fully Oriented, Alert, Normal Response Integumentary: Yes: Within Normal Limits Lymphatic: Yes: Within Normal Limits Cleared for Admission [facility] - Detox or Rehab [facility] Level of Care: Medically Managed Breathalyzer - Breathalyzer Breathalyzer: 0 Urine Drug Screen - Test Device Lot number: [id number] Expiration date: 04/24/21 - Control Is test valid?: Yes - Results Drug screen NEGATIVE: No Urine drug screen results: ESVIN-Cocaine, MOP-Opiates Inpatient Rehab Admission - Rehab Decision to Admit Inpatient rehab admission?: No
[2019-07-12] MEDS ORDERED: chlordiazePOXIDE HCL 25 MG CAPSULE PO PRN (12:57)
[2019-07-12] MEDS ORDERED: BISMUTH SUBSALICYLATE 524 MG/30 ML UD PO PRN (12:57)
[2019-07-12] MEDS ORDERED: MAGNESIUM CITRATE 300 ML BOTTLE PO PRN (12:57)
[2019-07-12] MEDS ORDERED: METHOCARBAMOL 500 MG TABLET PO PRN (12:57)
[2019-07-12] MEDS ORDERED: IBUPROFEN 400 MG TABLET (FP) PO PRN (12:57)
[2019-07-12] MEDS ORDERED: MAGNESIUM HYDROX 2400MG/30ML ORAL SUSPENSION 30 ML CUP PO PRN (12:57)
[2019-07-12] MEDS ORDERED: MENTHOL/PHENOL 1 EACH UD MM PRN (12:57)
[2019-07-12] MEDS ORDERED: cloNIDine HCL 0.1 MG TABLET PO PRN (12:57)
[2019-07-12] MEDS ORDERED: hydrOXYzine PAMOATE 25 MG CAPSULE (FP) PO PRN (12:57)
[2019-07-12] MEDS ORDERED: MAG HYDROX/AL HYDROX/SIMETH 30 ML UNIT-DOSE CUP PO PRN (12:57)
[2019-07-12] MEDS ORDERED: ACETAMINOPHEN 325 MG TABLET (FP) PO PRN ×2 (12:57)
[2019-07-12] MEDS ORDERED: MELATONIN 5 MG TABLETS PO PRN (12:57)
[2019-07-12] MEDS ORDERED: METHADONE HCL 10 MG TABLET (FOR DETOX USE ONLY) PO ONE (14:15)
[2019-07-12] MEDS: LISINOPRIL 10 MG TABLET (FP) PO SCH (15:16)
[2019-07-12] MEDS: NICOTINE 14 MG/24 HOURS TOPICAL PATCH TD SCH (15:16)
[2019-07-12] MEDS: ABACAVIR/DOLUTEGRAVIR/LAMIVUDI (TRIUMEQ) TABLET -NF PO SCH (15:17)
[2019-07-12] MEDS: chlordiazePOXIDE HCL 25 MG CAPSULE PO SCH ×2 (18:15→22:38)
[2019-07-12] MEDS: THIAMINE HCL 100 MG TABLET (FP) PO SCH (22:38)
[2019-07-12] MEDS: LATANOPROST 0.005% OPHTH SOLN 2.5ML BOTTLE OU SCH (22:38)
[2019-07-13] MEDS: chlordiazePOXIDE HCL 25 MG CAPSULE PO SCH ×4 (05:56→22:32)
[2019-07-13] MEDS ORDERED: METHADONE HCL 5 MG TABLET (FOR DETOX USE ONLY) ONE (08:51)
[2019-07-13] MEDS ORDERED: METHADONE HCL 10 MG TABLET (FOR DETOX USE ONLY) ONE (08:51)
[2019-07-13] MEDS ORDERED: METHADONE (DETOX) 20 MG, METHADONE (DETOX) 5 MG PO ONE (10:00)
--- NOTE | 2019-07-13 11:06 | PN ---
[facility] CIWA - CIWA Score Nausea/Vomitin-Mild Nausea/No Vomiting Muscle Tremors: 2 Anxiety: 1-Mildly Anxious Agitation: 1-Slight > Activity Paroxysmal Sweats: No Perspiration Orientation: 0-Oriented Tacttile Disturbances: 0-None Auditory Disturbances: 0-None Visual Disturbances: 0-None Headache: 1-Very Mild CIWA-Ar Total Score: 6 [facility] COWS - Scale Resting Pulse: 0= [place] 80 or Below Sweatin= Chills/Flushing Restless Observation: 1= Difficult to Sit Still Pupil Size: 0= Normal to Room Light Bone or Joint Aches: 1= Mild Discomfort Runny Nose/ Eye Tearin= Nasal Congestion GI Upset > 30mins: 1= Stomach Cramp Tremor Observation of Outstretched Hands: 1= Tremor [place], Not Seen Yawning Observation: 1= 1-2x During Session Anxiety or Irritability: 1=Feels Anxious/Irritable Goose Flesh Skin: 0=Smooth Skin COWS Score: 8 S Progress Note (SOAP) Subjective: pt admitted yesterday for dual detox, no complaints today. O: Vital Signs - 24 hr 07/12/19 07/12/19 07/12/19 11:29 13:52 17:00 Temperature 97.4 F L 97.2 F L 99.4 F Pulse Rate 96 H 72 87 Respiratory 20 18 16 Rate Blood Pressure 151/95 148/93 138/70 07/12/19 07/13/19 07/13/19 21:07 00:30 03:30 Temperature 97.5 F L Pulse Rate 65 Respiratory 16 18 18 Rate Blood Pressure 126/68 07/13/19 07/13/19 07/13/19 06:07 06:30 08:50 Temperature 98.6 F 98.8 F Pulse Rate 62 81 Respiratory 18 18 18 Rate Blood Pressure 129/66 154/92 labs pending a/p: continue alcohol and opioid detox protocols, pt to d/w counselor re terminal gauger MAT meds continue HIV meds
[2019-07-13] MEDS ORDERED: FLU VACCINE QUAD 60 MCG/0.5 ML (MDV 19-20) IM ONE (12:00)
[2019-07-13] MEDS: LISINOPRIL 10 MG TABLET (FP) PO SCH (12:23)
[2019-07-13] MEDS: PRENATAL VITAMINS W/ FOLIC ACID TABLET (FP) PO SCH (12:23)
[2019-07-13] MEDS: ABACAVIR/DOLUTEGRAVIR/LAMIVUDI (TRIUMEQ) TABLET -NF PO SCH (12:23)
[2019-07-13 12:44] LABS: HEMATOCRIT 33.2 % (35.4-49); MCH 29.3 pg (25.7-33.7); MCHC 33.1 g/dl (32.0-35.9); MEAN CELL VOLUME 88.5 fl (80-96); MEAN PLT VOLUME 8.9 fl (7.5-11.1); PLATELET COUNT 201 K/MM3 (134-434); RBC 3.75 M/mm3 (4.00-5.60); RDW 14.5 % (11.9-15.9)
[2019-07-13 12:52] LABS: ALBUMIN 2.7 g/dl (3.4-5.0); BILIRUBIN,TOTAL 0.3 mg/dL (0.2-1); BLOOD UREA NITROGEN 14.1 mg/dL (7-18); POTASSIUM 3.5 mmol/L (3.5-5.1); TOT PROT 6.5 g/dl (6.4-8.2)
[2019-07-13] MEDS: NICOTINE 14 MG/24 HOURS TOPICAL PATCH TD SCH (12:59)
[2019-07-13] MEDS: THIAMINE HCL 100 MG TABLET (FP) PO SCH (22:32)
[2019-07-13] MEDS: LATANOPROST 0.005% OPHTH SOLN 2.5ML BOTTLE OU SCH (22:32)
[2019-07-14] MEDS: chlordiazePOXIDE HCL 25 MG CAPSULE PO SCH ×4 (06:13→22:50)
[2019-07-14] MEDS ORDERED: METHADONE HCL 10 MG TABLET (FOR DETOX USE ONLY) PO ONE (10:00)
[2019-07-14] MEDS: PRENATAL VITAMINS W/ FOLIC ACID TABLET (FP) PO SCH (10:30)
[2019-07-14] MEDS: LISINOPRIL 10 MG TABLET (FP) PO SCH (10:30)
[2019-07-14] MEDS: ABACAVIR/DOLUTEGRAVIR/LAMIVUDI (TRIUMEQ) TABLET -NF PO SCH (10:31)
[2019-07-14] MEDS: NICOTINE 14 MG/24 HOURS TOPICAL PATCH TD SCH (10:31)
--- NOTE | 2019-07-14 14:42 | PN ---
S CIWA - CIWA Score Nausea/Vomitin-No Nausea/No Vomiting Muscle Tremors: 2 Anxiety: 2 Agitation: 0-Normal Activity Paroxysmal Sweats: 1-Minimal Palms Moist Orientation: 0-Oriented Tacttile Disturbances: 0-None Auditory Disturbances: 0-None Visual Disturbances: 0-None Headache: 0-None Present CIWA-Ar Total Score: 5 BHS COWS - Scale Resting Pulse: 1= [place] 81-100 Sweatin= No chills or Flushing Restless Observation: 0= Sits Still Pupil Size: 1= Pupils >than Normal Bone or Joint Aches: 1= Mild Discomfort Runny Nose/ Eye Tearin= None GI Upset > 30mins: 0= None Tremor Observation of Outstretched Hands: 1= Tremor [place], Not Seen Yawning Observation: 0= None Anxiety or Irritability: 1=Feels Anxious/Irritable Goose Flesh Skin: 0=Smooth Skin COWS Score: 5 S Progress Note (SOAP) Subjective: 53 years old male admitted on 07/12/19 for alcohol and opiate withdrawal sx management treating with librium and methadone detox regiments feeling ok today ate breakfast and lunch in day room strong recommend the patient to attend behavior and psychosocial therapies groups and meetings health teaching on the importance of therapies as part of recovery Objective: 07/14/19 14:44 Vital Signs Temperature 98.1 F 07/14/19 13:08 Pulse Rate 84 07/14/19 13:08 Respiratory Rate 18 07/14/19 13:08 Blood Pressure 155/92 07/14/19 13:08 O2 Sat by Pulse Oximetry (%) Laboratory Last Values WBC 5.0 K/mm3 (4.0-10.0) 07/13/19 09:30 RBC 3.75 M/mm3 (4.00-5.60) L 07/13/19 09:30 Hgb 11.0 GM/dL (11.7-16.9) L 07/13/19 09:30 Hct 33.2 % (35.4-49) L 07/13/19 09:30 MCV 88.5 fl (80-96) 07/13/19 09:30 MCH 29.3 pg (25.7-33.7) 07/13/19 09:30 MCHC 33.1 g/dl (32.0-35.9) 07/13/19 09:30 RDW 14.5 % (11.9-15.9) 07/13/19 09:30 Plt Count 201 K/MM3 (134-434) 07/13/19 09:30 MPV 8.9 fl (7.5-11.1) 07/13/19 09:30 Sodium 142 mmol/L (136-145) 07/13/19 09:30 Potassium 3.5 mmol/L (3.5-5.1) 07/13/19 09:30 Chloride 109 mmol/L (98-107) H 07/13/19 09:30 Carbon Dioxide 31 mmol/L (21-32) 07/13/19 09:30 Anion Gap 3 MMOL/L (8-16) L 07/13/19 09:30 BUN 14.1 mg/dL (7-18) 07/13/19 09:30 Creatinine 1.0 mg/dL (0.55-1.3) 07/13/19 09:30 Est GFR (CKD-EPI)AfAm 97.77 07/13/19 09:30 Est GFR (CKD-EPI)NonAf 84.35 07/13/19 09:30 Random Glucose 113 mg/dL (74-106) H 07/13/19 09:30 Calcium 9.0 mg/dL (8.5-10.1) 07/13/19 09:30 Total Bilirubin 0.3 mg/dL (0.2-1) 07/13/19 09:30 AST 20 U/L (15-37) 07/13/19 09:30 ALT 11 U/L (13-61) L 07/13/19 09:30 Alkaline Phosphatase 64 U/L (45-117) 07/13/19 09:30 Total Protein 6.5 g/dl (6.4-8.2) 07/13/19 09:30 Albumin 2.7 g/dl (3.4-5.0) L 07/13/19 09:30 RPR Titer Nonreactive (NONREACTIVE) 07/13/19 09:30 lab noted Assessment: 07/14/19 14:44 alcohol and opiate withdrawal Plan: librium and methadone regiments
[2019-07-14] MEDS: THIAMINE HCL 100 MG TABLET (FP) PO SCH (22:50)
[2019-07-14] MEDS: LATANOPROST 0.005% OPHTH SOLN 2.5ML BOTTLE OU SCH (22:51)
[2019-07-15] MEDS ORDERED: chlordiazePOXIDE HCL 10 MG CAPSULE PO PRN
[2019-07-15] MEDS: chlordiazePOXIDE HCL 10 MG CAPSULE PO SCH ×4 (06:26→22:25)
--- NOTE | 2019-07-15 09:08 | PN ---
[facility] CIWA - CIWA Score Nausea/Vomitin-No Nausea/No Vomiting Muscle Tremors: 1-None Visible, but [place] Anxiety: 2 Agitation: 0-Normal Activity Paroxysmal Sweats: 1-Minimal Palms Moist Orientation: 0-Oriented Tacttile Disturbances: 0-None Auditory Disturbances: 0-None Visual Disturbances: 0-None Headache: 0-None Present CIWA-Ar Total Score: 4 S COWS - Scale Resting Pulse: 0= [place] 80 or Below Sweatin= Chills/Flushing Restless Observation: 0= Sits Still Pupil Size: 0= Normal to Room Light Bone or Joint Aches: 1= Mild Discomfort Runny Nose/ Eye Tearin= None GI Upset > 30mins: 0= None Tremor Observation of Outstretched Hands: 1= Tremor [place], Not Seen Yawning Observation: 0= None Anxiety or Irritability: 1=Feels Anxious/Irritable Goose Flesh Skin: 0=Smooth Skin COWS Score: 4 S Progress Note (SOAP) Subjective: 53 years old male admitted on 07/12/19 for alcohol and opiate withdrawal sx management treating with librium and methadone detox regiments feeling ok today tolerating food and fluid better discuss medication assisted treatment program and picking up narcan from pharmacy upon discharge Objective: 07/15/19 09:10 Vital Signs Temperature 96.7 F L 07/15/19 06:25 Pulse Rate 71 07/15/19 06:25 Respiratory Rate 18 07/15/19 06:25 Blood Pressure 127/78 07/15/19 06:25 O2 Sat by Pulse Oximetry (%) Laboratory Last Values WBC 5.0 K/mm3 (4.0-10.0) 07/13/19 09:30 RBC 3.75 M/mm3 (4.00-5.60) L 07/13/19 09:30 Hgb 11.0 GM/dL (11.7-16.9) L 07/13/19 09:30 Hct 33.2 % (35.4-49) L 07/13/19 09:30 MCV 88.5 fl (80-96) 07/13/19 09:30 MCH 29.3 pg (25.7-33.7) 07/13/19 09:30 MCHC 33.1 g/dl (32.0-35.9) 07/13/19 09:30 RDW 14.5 % (11.9-15.9) 07/13/19 09:30 Plt Count 201 K/MM3 (134-434) 07/13/19 09:30 MPV 8.9 fl (7.5-11.1) 07/13/19 09:30 Sodium 142 mmol/L (136-145) 07/13/19 09:30 Potassium 3.5 mmol/L (3.5-5.1) 07/13/19 09:30 Chloride 109 mmol/L (98-107) H 07/13/19 09:30 Carbon Dioxide 31 mmol/L (21-32) 07/13/19 09:30 Anion Gap 3 MMOL/L (8-16) L 07/13/19 09:30 BUN 14.1 mg/dL (7-18) 07/13/19 09:30 Creatinine 1.0 mg/dL (0.55-1.3) 07/13/19 09:30 Est GFR (CKD-EPI)AfAm 97.77 07/13/19 09:30 Est GFR (CKD-EPI)NonAf 84.35 07/13/19 09:30 Random Glucose 113 mg/dL (74-106) H 07/13/19 09:30 Calcium 9.0 mg/dL (8.5-10.1) 07/13/19 09:30 Total Bilirubin 0.3 mg/dL (0.2-1) 07/13/19 09:30 AST 20 U/L (15-37) 07/13/19 09:30 ALT 11 U/L (13-61) L 07/13/19 09:30 Alkaline Phosphatase 64 U/L (45-117) 07/13/19 09:30 Total Protein 6.5 g/dl (6.4-8.2) 07/13/19 09:30 Albumin 2.7 g/dl (3.4-5.0) L 07/13/19 09:30 RPR Titer Nonreactive (NONREACTIVE) 07/13/19 09:30 lab noted Assessment: 07/15/19 09:10 alcohol and opiate withdrawal Plan: librium and methadone regiments
[2019-07-15] MEDS ORDERED: METHADONE HCL 10 MG TABLET (FOR DETOX USE ONLY) ONE (09:20)
[2019-07-15] MEDS ORDERED: METHADONE HCL 5 MG TABLET (FOR DETOX USE ONLY) ONE (09:20)
[2019-07-15] MEDS ORDERED: METHADONE (DETOX) 10 MG, METHADONE (DETOX) 5 MG PO ONE (10:00)
[2019-07-15] MEDS: ABACAVIR/DOLUTEGRAVIR/LAMIVUDI (TRIUMEQ) TABLET -NF PO SCH (10:10)
[2019-07-15] MEDS: LISINOPRIL 10 MG TABLET (FP) PO SCH (10:10)
[2019-07-15] MEDS: PRENATAL VITAMINS W/ FOLIC ACID TABLET (FP) PO SCH (10:10)
[2019-07-15] MEDS: NICOTINE 14 MG/24 HOURS TOPICAL PATCH TD SCH (10:12)
[2019-07-15] MEDS: THIAMINE HCL 100 MG TABLET (FP) PO SCH (22:25)
[2019-07-15] MEDS: LATANOPROST 0.005% OPHTH SOLN 2.5ML BOTTLE OU SCH (22:26)
[2019-07-16] MEDS: chlordiazePOXIDE HCL 10 MG CAPSULE PO SCH ×2 (06:05→17:36)
[2019-07-16] MEDS ORDERED: METHADONE HCL 10 MG TABLET (FOR DETOX USE ONLY) PO ONE (10:00)
--- NOTE | 2019-07-16 10:33 | PN ---
[facility] CIWA - CIWA Score Nausea/Vomitin-No Nausea/No Vomiting Muscle Tremors: None Anxiety: 1-Mildly Anxious Agitation: 0-Normal Activity Paroxysmal Sweats: No Perspiration Orientation: 0-Oriented Tacttile Disturbances: 0-None Auditory Disturbances: 0-None Visual Disturbances: 0-None Headache: 0-None Present CIWA-Ar Total Score: 1 [facility] COWS - Scale Resting Pulse: 0= [place] 80 or Below Sweatin= No chills or Flushing Restless Observation: 0= Sits Still Pupil Size: 0= Normal to Room Light Bone or Joint Aches: 0= None Runny Nose/ Eye Tearin= None GI Upset > 30mins: 0= None Tremor Observation of Outstretched Hands: 0= None Yawning Observation: 0= None Anxiety or Irritability: 1=Feels Anxious/Irritable Goose Flesh Skin: 0=Smooth Skin COWS Score: 1 [facility] Progress Note (SOAP) Subjective: Pt feeling comfortable planning d/c in am, asking for eye drops upon discharge Objective: 07/16/19 10:31 Laboratory Last Values WBC 5.0 K/mm3 (4.0-10.0) 07/13/19 09:30 RBC 3.75 M/mm3 (4.00-5.60) L 07/13/19 09:30 Hgb 11.0 GM/dL (11.7-16.9) L 07/13/19 09:30 Hct 33.2 % (35.4-49) L 07/13/19 09:30 MCV 88.5 fl (80-96) 07/13/19 09:30 MCH 29.3 pg (25.7-33.7) 07/13/19 09:30 MCHC 33.1 g/dl (32.0-35.9) 07/13/19 09:30 RDW 14.5 % (11.9-15.9) 07/13/19 09:30 Plt Count 201 K/MM3 (134-434) 07/13/19 09:30 MPV 8.9 fl (7.5-11.1) 07/13/19 09:30 Sodium 142 mmol/L (136-145) 07/13/19 09:30 Potassium 3.5 mmol/L (3.5-5.1) 07/13/19 09:30 Chloride 109 mmol/L (98-107) H 07/13/19 09:30 Carbon Dioxide 31 mmol/L (21-32) 07/13/19 09:30 Anion Gap 3 MMOL/L (8-16) L 07/13/19 09:30 BUN 14.1 mg/dL (7-18) 07/13/19 09:30 Creatinine 1.0 mg/dL (0.55-1.3) 07/13/19 09:30 Est GFR (CKD-EPI)AfAm 97.77 07/13/19 09:30 Est GFR (CKD-EPI)NonAf 84.35 07/13/19 09:30 Random Glucose 113 mg/dL (74-106) H 07/13/19 09:30 Calcium 9.0 mg/dL (8.5-10.1) 07/13/19 09:30 Total Bilirubin 0.3 mg/dL (0.2-1) 07/13/19 09:30 AST 20 U/L (15-37) 07/13/19 09:30 ALT 11 U/L (13-61) L 07/13/19 09:30 Alkaline Phosphatase 64 U/L (45-117) 07/13/19 09:30 Total Protein 6.5 g/dl (6.4-8.2) 07/13/19 09:30 Albumin 2.7 g/dl (3.4-5.0) L 07/13/19 09:30 RPR Titer Nonreactive (NONREACTIVE) 07/13/19 09:30 Vital Signs - 24 hr 07/15/19 07/15/19 07/15/19 12:52 18:34 21:15 Temperature 97.3 F L 96.0 F L 97.0 F L Pulse Rate 84 70 80 Respiratory 18 18 18 Rate Blood Pressure 150/87 153/90 137/85 07/16/19 07/16/19 07/16/19 03:55 05:17 08:31 Temperature 97.1 F L 97.8 F Pulse Rate 82 90 Respiratory 18 18 18 Rate Blood Pressure 121/68 144/95 PE Gnl: WDWN, in bed Mental status: easily aroused, nl language Motor: moves all limbs symetrically Assessment: 07/16/19 10:32 1. Alcohol use disorder 2. Opioid use disorder 3. HIV positive, HTN, glaucoma, anemia 07/16/19 10:35 Plan: 1. complete librium detox protocol 2. continue Trimeq, eye gtts for glaucoma, antihypertensive medications 3. outpt workup for anemia, may relate to EtOH, may need further workup 4. planned discharge for am, wants to go home, rec: discuss with counselor
[2019-07-16] MEDS: ABACAVIR/DOLUTEGRAVIR/LAMIVUDI (TRIUMEQ) TABLET -NF PO SCH (10:36)
[2019-07-16] MEDS: PRENATAL VITAMINS W/ FOLIC ACID TABLET (FP) PO SCH (10:36)
[2019-07-16] MEDS: LISINOPRIL 10 MG TABLET (FP) PO SCH (10:38)
[2019-07-16] MEDS: NICOTINE 14 MG/24 HOURS TOPICAL PATCH TD SCH (10:38)
[2019-07-16] MEDS: THIAMINE HCL 100 MG TABLET (FP) PO SCH (22:08)
[2019-07-16] MEDS: LATANOPROST 0.005% OPHTH SOLN 2.5ML BOTTLE OU SCH (22:40)
[2019-07-17] MEDS ORDERED: chlordiazePOXIDE HCL 10 MG CAPSULE PO ONE (05:00)
[2019-07-17] MEDS ORDERED: METHADONE HCL 5 MG TABLET (FOR DETOX USE ONLY) PO ONE (06:00)
[2019-07-17 07:18] VITALS: BP 121/60; PULSE 82; TEMP 98.6
--- NOTE | 2019-07-17 12:11 | DS ---
[facility] Detox Discharge Summary Admission Date: 07/12/19 Discharge Date: 07/17/19 - History Present History: Alcohol Dependence, Opioid Dependence Additional Comments: As per H&P: "[place] 53 [place] [facility] [place] from [place] and [place]. He was last here in April of 2018 when he completed a detox protocol. PMH: HIV positive on Trimeq/last dose yesterday, HTN, glaucoma, anemia Psych: depression on no meds, no SI/HI". Pt is medically cleared and is discharged today. Pt completed the detox protocol. Pt is encouraged to follow-up with an outpatient CD program and also to follow-up with his pmd. Pt verbalized understanding. Pt is alert and oriented x3 and in no acute respiratory distress. Pertinent Past History: H/o alcohol and heroin use disorder. - Physical Exam Results Vital Signs: Vital Signs Temperature 98.6 F 07/17/19 07:18 Pulse Rate 82 07/17/19 07:18 Respiratory Rate 16 07/17/19 07:18 Blood Pressure 121/60 07/17/19 07:18 O2 Sat by Pulse Oximetry (%) Vital Signs 07/17/19 07:18 Temperature 98.6 F Pulse Rate 82 Respiratory 16 Rate Blood Pressure 121/60 Laboratory Last Values WBC 5.0 K/mm3 (4.0-10.0) 07/13/19 09:30 RBC 3.75 M/mm3 (4.00-5.60) L 07/13/19 09:30 Hgb 11.0 GM/dL (11.7-16.9) L 07/13/19 09:30 Hct 33.2 % (35.4-49) L 07/13/19 09:30 MCV 88.5 fl (80-96) 07/13/19 09:30 MCH 29.3 pg (25.7-33.7) 07/13/19 09:30 MCHC 33.1 g/dl (32.0-35.9) 07/13/19 09:30 RDW 14.5 % (11.9-15.9) 07/13/19 09:30 Plt Count 201 K/MM3 (134-434) 07/13/19 09:30 MPV 8.9 fl (7.5-11.1) 07/13/19 09:30 Sodium 142 mmol/L (136-145) 07/13/19 09:30 Potassium 3.5 mmol/L (3.5-5.1) 07/13/19 09:30 Chloride 109 mmol/L (98-107) H 07/13/19 09:30 Carbon Dioxide 31 mmol/L (21-32) 07/13/19 09:30 Anion Gap 3 MMOL/L (8-16) L 07/13/19 09:30 BUN 14.1 mg/dL (7-18) 07/13/19 09:30 Creatinine 1.0 mg/dL (0.55-1.3) 07/13/19 09:30 Est GFR (CKD-EPI)AfAm 97.77 07/13/19 09:30 Est GFR (CKD-EPI)NonAf 84.35 07/13/19 09:30 Random Glucose 113 mg/dL (74-106) H 07/13/19 09:30 Calcium 9.0 mg/dL (8.5-10.1) 07/13/19 09:30 Total Bilirubin 0.3 mg/dL (0.2-1) 07/13/19 09:30 AST 20 U/L (15-37) 07/13/19 09:30 ALT 11 U/L (13-61) L 07/13/19 09:30 Alkaline Phosphatase 64 U/L (45-117) 07/13/19 09:30 Total Protein 6.5 g/dl (6.4-8.2) 07/13/19 09:30 Albumin 2.7 g/dl (3.4-5.0) L 07/13/19 09:30 RPR Titer Nonreactive (NONREACTIVE) 07/13/19 09:30 Labs noted. Pertinent Admission Physical Exam Findings: withdrawal symptoms. - Treatment Hospital Course: Detox Protocol Followed, Detoxed Safely, Responded well, Discharged Condition Good - Medication Discharge Medications: Ambulatory Orders Zolpidem Tartrate [Ambien] 10 mg PO HS 01/26/18 Latanoprost 0.005% Eye Drops [Xalatan 0.005% Eye Drops -] 1 drop OU HS 05/01/18 Abacavir/Dolutegravir/Lamivudi [Triumeq (Non-Formulary)] 1 each PO DAILY Benazepril HCl [Lotensin] 10 mg PO DAILY 05/03/18 Naloxone HCl [Narcan] 4 mg NS ASDIR PRN #1 spray 07/15/19 - Diagnosis (1) Alcohol dependence with uncomplicated withdrawal Status: Chronic (2) Glaucoma Status: Chronic Qualifiers: Glaucoma type: unspecified Laterality: bilateral Qualified Code(s): H40.9 - Unspecified glaucoma (3) HIV (human immunodeficiency virus infection) Status: Chronic (4) Hypertension Status: Chronic Qualifiers: Hypertension type: essential hypertension Qualified Code(s): I10 - Essential (primary) hypertension (5) Nicotine dependence Status: Chronic Qualifiers: Nicotine product type: cigarettes Substance use status: in withdrawal Qualified Code(s): F17.213 - Nicotine dependence, cigarettes, with withdrawal (6) Opioid dependence with withdrawal Status: Chronic - AMA Did Patient Leave Against Medical Advice: No
== END 2019-07-17 09:34 | disposition home or self-care (01) | DRG 773 ==
LOC: YASAS 10:47 → Y3N 12:26
PROVIDERS: ADMIT Allergy & Immunology; ATTEND Allergy & Immunology
PROC: HZ2ZZZZ Detoxification Services for Substance Abuse Treatment (ICD-10-PCS; principal; 2019-07-12)
DX: F10.230 Alcohol dependence with withdrawal, uncomplicated (principal); F11.23 Opioid dependence with withdrawal; Z21 Asymptomatic human immunodeficiency virus [HIV] infection status; I10 Essential (primary) hypertension; D64.9 Anemia, unspecified; H40.9 Unspecified glaucoma
CPT/HCPCS: 36415; 80053; 85027; 86593

== ENCOUNTER 2023-03-11 12:21 | Inpatient (IN) | payer OTHER ==
[2023-03-11 13:17] VITALS: BMI 21.9
[2023-03-11] MEDS ORDERED: BENZOCAINE/MENTHOL (CHLORASEPTIC ) LOZENGE MM PRN (18:31)
[2023-03-11] MEDS ORDERED: MAGNESIUM HYDROX 2400MG/30ML ORAL SUSPENSION 30 ML CUP PO PRN (18:31)
[2023-03-11] MEDS ORDERED: P-EPHED 60MG/TRIPROLIDI 2.5MG TABLET PO PRN (18:31)
[2023-03-11] MEDS ORDERED: NALOXONE HCL 0.4 MG/ML VIAL IM PRN (18:31)
[2023-03-11] MEDS ORDERED: MAG HYDROX/AL HYDROX/SIMETH 30 ML UNIT-DOSE CUP PO PRN (18:31)
[2023-03-11] MEDS ORDERED: LOPERAMIDE HCL 2 MG CAPSULE PO PRN (18:31)
[2023-03-11] MEDS ORDERED: BISMUTH SUBSALICYLATE 524 MG/30 ML PO PRN (18:31)
[2023-03-11] MEDS ORDERED: NALOXONE HCL (KLOXXADO) 8 MG SPRAY NS PRN (18:31)
[2023-03-11] MEDS ORDERED: IBUPROFEN 400 MG TABLET (FP) PO PRN (18:31)
[2023-03-11] MEDS ORDERED: IBUPROFEN 600 MG TABLET (FP) PO PRN (18:31)
[2023-03-11] MEDS ORDERED: POLYETHYLENE GLYCOL (HEALTHYLAX) 3350 17 GM PACKET PO PRN (18:31)
[2023-03-11] MEDS ORDERED: guaiFENesin 600 MG TABLET.ER (FP) PO PRN (18:31)
[2023-03-11] MEDS ORDERED: NICOTINE POLACRILEX 2 MG GUM BUC PRN (18:31)
[2023-03-11] MEDS ORDERED: BENZONATATE 200 MG CAPSULE PO PRN (18:31)
[2023-03-11] MEDS ORDERED: ACETAMINOPHEN 325 MG TABLET (FP) PO PRN (18:31)
[2023-03-11] MEDS ORDERED: DICYCLOMINE HCL 10 MG CAPSULE PO PRN (18:31)
[2023-03-11] MEDS: hydrOXYzine PAMOATE 25 MG CAPSULE (FP) PO PRN (19:49)
[2023-03-11] MEDS ORDERED: ASPIRIN 325 MG TABLET PO ONE (22:46)
[2023-03-11] MEDS ORDERED: ASPIRIN 81 MG CHEWABLE TABLETS PO ONE (23:00)
[2023-03-12] MEDS: THIAMINE HCL 100 MG TABLET (FP) PO SCH ×2 (00:21→22:30)
[2023-03-12] MEDS: MELATONIN 5 MG TABLETS PO SCH ×2 (00:21→22:30)
[2023-03-12] MEDS ORDERED: cloNIDine HCL 0.1 MG TABLET PO ONE (06:36)
[2023-03-12] MEDS: hydrOXYzine PAMOATE 25 MG CAPSULE (FP) PO PRN (06:48)
[2023-03-12] MEDS: METHOCARBAMOL 500 MG TABLET PO PRN (06:48)
[2023-03-12] MEDS: ONDANSETRON *ODT* 4 MG TABLET SL PRN ×2 (06:55→15:07)
[2023-03-12] MEDS: PRENATAL VITAMINS W/ FOLIC ACID TABLET (FP) PO SCH (10:52)
[2023-03-12] MEDS ORDERED: TRIMETHOBENZAMIDE HCL 200MG/2ML INJ IM ONE (11:13)
[2023-03-12] MEDS ORDERED: methaDONE HCL 10 MG TABLET (FOR DETOX USE ONLY) PO ONE (11:22)
[2023-03-12] MEDS ORDERED: LORazepam 1 MG TABLET PO PRN (11:24)
[2023-03-12] MEDS: LORazepam 2 MG TABLET PO SCH ×3 (11:52→22:30)
[2023-03-12 17:14] LABS: HEMATOCRIT 37.7 % (35.4-49); HEMOGLOBIN 12.7 GM/dL (11.7-16.9); MCH 29.1 pg (25.7-33.7); MCHC 33.7 g/dl (32.0-35.9); MEAN CELL VOLUME 86.3 fl (80-96); MEAN PLT VOLUME 8.7 fl (7.5-11.1); PLATELET COUNT 279 10^3/uL (134-434); RBC 4.38 M/mm3 (4.00-5.60); RDW 14.5 % (11.9-15.9); WHITE BLOOD COUNT 4.9 K/mm3 (4.0-10.0)
[2023-03-12 17:17] LABS: CHLORIDE 102 mmol/L (98-107); POTASSIUM 3.8 mmol/L (3.5-5.1); SODIUM 137 mmol/L (136-145)
[2023-03-12 17:21] LABS: ALBUMIN 3.4 g/dl (3.4-5.0); CALCIUM 9.5 mg/dL (8.5-10.1)
[2023-03-12 17:22] LABS: ANION GAP 9 mmol/L (4-13); BLOOD UREA NITROGEN 10.7 mg/dL (7-18); CO2 26 mmol/L (21-32); GLUCOSE,RANDOM 98 mg/dL (74-106)
[2023-03-12 17:25] LABS: CREATININE 0.9 mg/dL (0.55-1.3); SGOT/AST 28 U/L (15-37); SGPT/ALT 11 U/L (13-61)
[2023-03-12 17:26] LABS: BILIRUBIN,TOTAL 0.5 mg/dL (0.2-1); TOT PROT 8.1 g/dl (6.4-8.2)
[2023-03-12 17:27] LABS: ALK PHOS 91 U/L (45-117)
[2023-03-12] MEDS: cloNIDine HCL 0.1 MG TABLET PO PRN (21:37)
[2023-03-12] MEDS ORDERED: TRIMETHOBENZAMIDE HCL 200MG/2ML INJ IM PRN (23:00)
[2023-03-13] MEDS: LORazepam 2 MG TABLET PO SCH ×2 (05:47→10:46)
[2023-03-13] MEDS: cloNIDine HCL 0.1 MG TABLET PO PRN ×3 (05:56→23:10)
[2023-03-13] MEDS: PRENATAL VITAMINS W/ FOLIC ACID TABLET (FP) PO SCH (10:40)
[2023-03-13] MEDS ORDERED: MELATONIN 5 MG TABLETS PO PRN (10:57)
[2023-03-13] MEDS: THIAMINE HCL 100 MG TABLET (FP) PO SCH (23:11)
[2023-03-14] MEDS ORDERED: LORazepam 1 MG TABLET PO SCH (05:00)
[2023-03-14] MEDS: PRENATAL VITAMINS W/ FOLIC ACID TABLET (FP) PO SCH (09:25)
[2023-03-14] MEDS ORDERED: methaDONE HCL 10 MG TABLET (FOR DETOX USE ONLY) PO ONE (10:00)
[2023-03-14] MEDS: QUINAPRIL HCL 5 MG TABLET PO SCH (14:59)
[2023-03-14] MEDS: cloNIDine HCL 0.1 MG TABLET PO PRN ×2 (17:43→22:39)
[2023-03-14] MEDS: hydrOXYzine PAMOATE 25 MG CAPSULE (FP) PO PRN (22:39)
[2023-03-14] MEDS: LATANOPROST 0.005% OPHTH SOLN 2.5ML BOTTLE OU SCH (22:42)
[2023-03-14] MEDS: THIAMINE HCL 100 MG TABLET (FP) PO SCH (22:43)
[2023-03-15] MEDS ORDERED: LORazepam 0.5 MG TABLET PO PRN
[2023-03-15] MEDS ORDERED: LORazepam 0.5 MG TABLET PO SCH (05:00)
[2023-03-15] MEDS: METHOCARBAMOL 500 MG TABLET PO PRN (06:54)
[2023-03-15] MEDS: hydrOXYzine PAMOATE 25 MG CAPSULE (FP) PO PRN (06:54)
[2023-03-15] MEDS: QUINAPRIL HCL 5 MG TABLET PO SCH (10:10)
[2023-03-15] MEDS: PRENATAL VITAMINS W/ FOLIC ACID TABLET (FP) PO SCH (10:10)
[2023-03-15] MEDS: amLODIPine BESYLATE 10 MG TABLET (FP) PO SCH (20:22)
[2023-03-15 22:03] VITALS: TEMP 97.7
[2023-03-15] MEDS: THIAMINE HCL 100 MG TABLET (FP) PO SCH (23:21)
[2023-03-15] MEDS: LATANOPROST 0.005% OPHTH SOLN 2.5ML BOTTLE OU SCH (23:21)
[2023-03-16] MEDS ORDERED: LORazepam 0.5 MG TABLET PO ONE (05:00)
[2023-03-16 06:14] VITALS: BP 141/78; PULSE 69; RESP 17
[2023-03-16] MEDS: amLODIPine BESYLATE 10 MG TABLET (FP) PO SCH (09:24)
[2023-03-16] MEDS: QUINAPRIL HCL 5 MG TABLET PO SCH (09:24)
[2023-03-16] MEDS: PRENATAL VITAMINS W/ FOLIC ACID TABLET (FP) PO SCH (09:25)
[2023-03-16] MEDS ORDERED: methaDONE HCL 10 MG TABLET (FOR DETOX USE ONLY) PO ONE (10:00)
== END 2023-03-16 09:46 | disposition home or self-care (01) | DRG 773 ==
LOC: YASAS 12:21 → Y6N 18:47
PROVIDERS: ADMIT Allergy & Immunology; ATTEND Surgery
PROC: HZ2ZZZZ Detoxification Services for Substance Abuse Treatment (ICD-10-PCS; principal; 2023-03-11)
DX: F11.23 Opioid dependence with withdrawal (principal); F10.230 Alcohol dependence with withdrawal, uncomplicated; F14.20 Cocaine dependence, uncomplicated; F17.210 Nicotine dependence, cigarettes, uncomplicated; Z21 Asymptomatic human immunodeficiency virus [HIV] infection status; H40.9 Unspecified glaucoma; R94.31 Abnormal electrocardiogram [ECG] [EKG]; R11.10 Vomiting, unspecified
CPT/HCPCS: 36415; 80053; 80307; 85027; 86780; 87635; 93005; 93010; Q0162

== ENCOUNTER 2023-03-12 00:11 | Emergency (ER) | payer OTHER ==
[2023-03-12 00:43] VITALS: BP 161/88; PULSE 59; RESP 17; TEMP 98.3; BMI 21.9
[2023-03-12 01:46] LABS: BASO % 1.2 % (0-2.0); EOS % 1.3 % (0-4.5); HEMATOCRIT 33.4 % (35.4-49); HEMOGLOBIN 11.2 GM/dL (11.7-16.9); LYMPH % 41.8 % (8-40); MCH 28.9 pg (25.7-33.7); MCHC 33.6 g/dl (32.0-35.9); MEAN CELL VOLUME 85.9 fl (80-96); MEAN PLT VOLUME 7.6 fl (7.5-11.1); MONO % 7.5 % (3.8-10.2); NEUT % 48.2 % (42.8-82.8); PLATELET COUNT 248 10^3/uL (134-434); RBC 3.88 M/mm3 (4.00-5.60); RDW 14.4 % (11.9-15.9); WHITE BLOOD COUNT 4.4 K/mm3 (4.0-10.0)
[2023-03-12 02:16] LABS: CHLORIDE 106 mmol/L (98-107); POTASSIUM 3.8 mmol/L (3.5-5.1); SODIUM 138 mmol/L (136-145)
[2023-03-12 02:18] LABS: ANION GAP 2 mmol/L (4-13); BLOOD UREA NITROGEN 11.4 mg/dL (7-18); CALCIUM 8.5 mg/dL (8.5-10.1); CO2 30 mmol/L (21-32); GLUCOSE,RANDOM 85 mg/dL (74-106); MAGNESIUM 2.3 mg/dL (1.8-2.4)
[2023-03-12 02:21] LABS: SGPT/ALT 10 U/L (13-61)
[2023-03-12 02:22] LABS: CREATININE 0.8 mg/dL (0.55-1.3); SGOT/AST 17 U/L (15-37)
[2023-03-12 02:23] LABS: BILIRUBIN,TOTAL 0.2 mg/dL (0.2-1); TOT PROT 7.1 g/dl (6.4-8.2)
[2023-03-12 02:24] LABS: ALK PHOS 75 U/L (45-117)
[2023-03-12 02:26] LABS: N-TERMINAL BNP 353.2 pg/ml (5-125)
== END 2023-03-12 05:45 | disposition home or self-care (01) ==
LOC: JER 00:11
DX: R94.31 Abnormal electrocardiogram [ECG] [EKG] (principal); F19.10 Other psychoactive substance abuse, uncomplicated; R53.83 Other fatigue; R60.0 Localized edema
CPT/HCPCS: 36415; 71045-TC-FY; 80053; 82553; 83735; 83880; 84484; 85025; 93005; 93010; 99285-25